=== PATIENT | female | born 1985 | race Caucasian/White ===

== ENCOUNTER 2019-12-18 23:24 | Inpatient (IN) | payer SELFPAY ==
[2019-12-18] MEDS ORDERED: FAMOTIDINE 20 MG/2 ML INJ IV ONE (23:33)
[2019-12-18] MEDS ORDERED: METOCLOPRAMIDE 10 MG/2 ML INJ IV ONE (23:33)
[2019-12-18] MEDS ORDERED: BICITRA ORAL LIQD 30ML PO ONE (23:33)
[2019-12-18] MEDS ORDERED: OXYTOCIN 20 UNIT/1000ML DRIP 20 UNITS/1,000 ML BAG IV SCH (23:45)
[2019-12-18 23:54] LABS: Hematocrit 39.2 % (30.3-42.9); Hemoglobin 13.3 gm/dl (10.1-14.3); Mean Corpuscular HGB Conc 34 % (30-34); Mean Corpuscular Volume 78 fl (79-97); Platelet Count 180 K/mm3 (140-440)
[2019-12-19] MEDS: LACTATED RINGERS 1,000 ML IV SCH ×2 (00:05→12:37)
[2019-12-19 00:15] LABS: Red Cell Distribution Width 22.9 % (13.2-15.2)
--- NOTE | 2019-12-19 00:27 | History and Physical Report ---
History of Present Illness Date of examination: 12/19/19 History of present illness: PT is a Angella Ross at 36.6 weeks. Spoke with pt via drug safety physician. PT is s/p SROM clear at home around 3-4 hrs ago. Clear fluid. H/O LTCS and pt is for RLTCS. Uncomplicated . Past History Past Medical History: no pertinent history Past Surgical History: section Social history: no significant social history - Obstetrical History Expected Date of Delivery: 01/10/20 Actual Gestation: 36 Week(s) 6 Day(s) Para: 2 Hx # Term Pregnancies: 1 Number of Pregnancies: 1 Number of Living Children: 1 Medications and Allergies Allergies Allergy/AdvReac Type Severity Reaction Status Date / Time No Known Allergies Allergy Verified 12/18/19 23:42 Active Meds: Active Medications Oxytocin/Sodium Chloride (Pitocin/Ns 20 Unit/1000ml Drip) 20 units in 1,000 mls @ 0 mls/hr IV TITR BRETT Lactated Ringer's (Lactated Ringers) 1,000 mls @ 2,250 mls/hr IV PREOP BRETT Stop: 12/20/19 00:12 Review of Systems All systems: negative (except for HPI) - Vital Signs Vital signs: Vital Signs Pulse BP 82 146/72 12/18/19 23:52 12/18/19 23:52 Temp Pulse Resp BP Pulse Ox 82 146/72 12/18/19 23:52 12/18/19 23:52 - Physical Exam Abdomen: Positive: normal appearance. Negative: tenderness - Obstetrical FHR: category 1 Uterine Contraction Duration: q2 Uterine Contraction Pattern: Regular Results Result Diagrams: 12/18/19 23:40 Abnormal lab results 12/18/19 Range/Units 23:40 MCV 78 L (79-97) fl MCH 27 L (28-32) pg RDW 22.9 H (13.2-15.2) % All other labs normal. Assessment and Plan - Patient Problems (1) premature rupture of membranes (PPROM) with unknown onset of labor Current Visit: Yes Status: Acute Plan to address problem: PPROM with h/o prior . PT fully consented for Repeat LTCS via tr anslator. All questions answered and pt agrees to proceed with surgery.
[2019-12-19] MEDS ORDERED: ceFAZolin/Water 2 GM/20 ML 2 GM/20 ML SYRINGE IV ONE (00:30)
[2019-12-19] MEDS ORDERED: BUPIVACAINE /DEX-WATER 0.75% (2 ML) AMPULE INFILTRATI ONE (00:38)
[2019-12-19] MEDS ORDERED: DEXMEDETOMIDINE 200 MCG/2 ML VIAL IV ONE (00:38)
[2019-12-19] MEDS ORDERED: ceFAZolin/STERILE WATER 2 GM/20 ML SYRINGE IV ONE (00:50)
[2019-12-19] MEDS ORDERED: WATER FOR IRRIG STERILE 1,500 ML BOTTLE IR ONE (01:08)
[2019-12-19] MEDS ORDERED: SODIUM CHLORIDE 0.9% IRR 1,500 ML BOTTLE IR ONE (01:08)
[2019-12-19] MEDS ORDERED: dexAMETHasone 20 MG/5 ML VIAL ONE (01:22)
[2019-12-19] MEDS ORDERED: OXYTOCIN 10 UNIT/1 ML INJ ONE (01:22)
[2019-12-19] MEDS ORDERED: PHENYLEPHRINE/NS 1,000 MCG/10 ML SYRINGE (OR USE) IV ONE (01:22)
[2019-12-19] MEDS ORDERED: diphenhydrAMINE 50 MG/ML VIAL ONE (01:22)
[2019-12-19] MEDS ORDERED: KETOROLAC 30 MG/1 ML INJ ONE (01:22)
--- NOTE | 2019-12-19 02:04 | Procedure Note ---
OB Delivery Note - Delivery Date of Delivery: 12/19/19 Surgeon: GERARDO GARRETT Estimated blood loss: other (800cc) - Section Preop diagnosis: repeat , other (PPROM) Postop diagnosis: same section procedure: section, repeat low transverse Disposition: PACU Complications: none Narrative: Indication: 34-year-old G2, P1 at 36 weeks and 6 days with a history of a prior is here status post premature rupture of membranes. As result patient is for repeat low-transverse . Findings: Normal uterus, tubes and ovaries. Clear fluid. No nuchal cord. No significant intra-abdominal scarring. Procedure: Patient taken to the operating room and prepped and draped in the usual fashion. Pfannenstiel skin incision was made and carried down to the underlying fascia. Fascia was incised and the incision was extended bilaterally. Rectus fascia dissected off the rectus muscle both superiorly and inferiorly. Peritoneum identified tented up and entered. Peritoneal incision extended superiorly and inferiorly with good visualization of the bladder. Bladder blade was placed. Uterine incision was made and the incision was extended bilaterally. The baby was delivered from in the typical vertex fashion. Baby bulb suctioned at the incision site and again after delivery. Cord was delayed clamped and cut and handed off to waiting team. The placenta was delivered spontaneously. The uterus was exteriorized and cleared of all clots and debris. Uterine incision closed with 0 Vicryl in a running locked fashion followed by a second imbricating layer of 0 Vicryl. Good hemostasis was noted after couple additional [id number] stitches were required. Her urine was clear. Uterus tubes and ovaries return to the abdominal cavity. Gutters were cleared of all clots and debris and the pelvis was well irrigated. Good hemostasis noted. Interceed placed over the uterine incision and over the lower uterine segment in the midline. Attention was turned to the rectus fascia which was reapproximated with 0 Vicryl in a running fashion. Subcutaneous tissues was irrigated and reapproximated with 2-0 Vicryl in a running fashion. Skin was closed with 4-0 Vicryl in a subcuticular fashion followed by Dermabond. The procedure was concluded at this point and the patient tolerated the procedure well. All instrument and lap counts were correct. - Infant A at 1 minute: 8 at 5 minutes: 9 Gender: Female
[2019-12-19] MEDS ORDERED: WITCH HAZEL/ GLYCERIN PAD TP PRN (02:05)
[2019-12-19] MEDS ORDERED: NALOXONE 0.4 MG/1 ML INJ IV PRN (02:05)
[2019-12-19] MEDS ORDERED: LANOLIN/ZINC/DIMETHICONE (LANSINOH) 7 GM TP PRN (02:05)
[2019-12-19] MEDS ORDERED: MAGNESIUM HYDROXIDE (MOM) ORAL LIQD UDC PO PRN (02:06)
[2019-12-19] MEDS ORDERED: ONDANSETRON 4 MG/2 ML INJ IV PRN (02:06)
[2019-12-19] MEDS ORDERED: SIMETHICONE 80 MG CHEW TAB PO PRN (02:06)
[2019-12-19] MEDS ORDERED: SENNOSIDES 8.6 MG TAB PO PRN (02:06)
--- NOTE | 2019-12-19 02:19 | Anesthesia Consultation ---
Anesthesia Consult and Med Hx Date of service: 12/19/19 - Airway Anesthetic Teeth Evaluation: Good ROM Head & Neck: Adequate Mental/Hyoid Distance: Adequate Mallampati Class: Class II Intubation Access Assessment: Good - Pulmonary Exam CTA: Yes - Cardiac Exam Cardiac Exam: RRR - Pre-Operative Health Status ASA Pre-Surgery Classification: ASA2, Emergency Proposed Anesthetic Plan: Spinal - Pulmonary Hx Asthma: No COPD: No Hx Pneumonia: No - Cardiovascular System Hx Hypertension: No - Central Nervous System Hx Seizures: No Hx Psychiatric Problems: No - Endocrine Hx Renal Disease: No Hx End Stage Renal Disease: No Hx Hypothyroidism: No Hx Hyperthyroidism: No - Hematic Hx Anemia: No Hx Sickle Cell Disease: No - Other Systems Hx Alcohol Use: No
--- NOTE | 2019-12-19 02:19 | Anesthesia Day of Surgery ---
Anesthesia Day of Surgery - Day of Surgery Patient Examined: Yes Patient H&P Reviewed: Yes Patient is NPO: Yes
[2019-12-19] MEDS ORDERED: PROMETHAZINE 25 MG RECT SUPP PR PRN (02:21)
[2019-12-19] MEDS ORDERED: HYDROmorphone 1 MG/1 ML INJ IV PRN (02:21)
[2019-12-19] MEDS ORDERED: PROMETHAZINE 25 MG TAB PO PRN (02:21)
--- NOTE | 2019-12-19 02:21 | Progress Note ---
Spinal Anesthesia Block - Spinal Anesthesia Block Start Time: 00:46 Stop Time: 00:48 Performed by:: CARLOS RIOS Procedure: Spinal anesthesia block is being performed for repeat for spontaneous rupture of membrane. H&P, labs have been reviewed. Patient's questions and concerns have been answered. Informed consent has been performed. Timeout has was performed. Patient in sitting position on side of bed. Sterile prep and drape was performed. 3 mL 1% lidocaine skin wheal at L 3-L 4. Needle introducer advanced. 25-gauge spinal needle advanced, clear CSF negative blood. Spinal dose was given. All needles removed. Patient tolerated procedure well.
--- NOTE | 2019-12-19 02:21 | Post Anesthesia Evaluation ---
- Post Anesthesia Evaluation Patient Participated: Yes Airway Patent: Yes Stable Respiratory Function: Yes Nausea/Vomiting: No Temp > 96.8F: Yes Pain Manageable: Yes Adequeate Hydration: Yes Anesthesia Complications: No Block Receding Appropriately: Yes Patient on Ventilator: No
[2019-12-19] MEDS ORDERED: OXYTOCIN 20 UNIT/1000ML DRIP 20 UNITS/1,000 ML BAG IV SCH (03:00)
[2019-12-19 03:25] LABS: Basophils % (Manual) 0 % (0.0-1.8); Ovalocytes Few; Schistocytes Rare; Total Cells Counted 100
[2019-12-19 03:26] LABS: Platelet Estimate Consistent w Auto
[2019-12-19] MEDS: KETOROLAC 30 MG/1 ML INJ IV PRN ×3 (04:36→22:54)
[2019-12-19] MEDS: oxyCODONE /ACETAMINOPHEN 5-325MG TAB PO PRN (18:09)
[2019-12-20 05:59] LABS: Hematocrit 31.4 % (30.3-42.9); Hemoglobin 10.5 gm/dl (10.1-14.3)
[2019-12-20] MEDS: oxyCODONE /ACETAMINOPHEN 5-325MG TAB PO PRN ×2 (08:09→17:25)
[2019-12-20] MEDS: FERROUS SULFATE 325 MG TAB PO SCH ×2 (09:29→21:59)
--- NOTE | 2019-12-20 11:45 | Progress Note ---
Assessment and Plan - Patient Problems (1) S/P repeat low transverse Current Visit: Yes Status: Acute Plan to address problem: POD 1 - stable Continue routine postop orders Ambulation, abdominal binder encouraged as tolerated Anticipate discharge in 24 to 48 hours (2) Single live Current Visit: Yes Status: Acute Subjective - Subjective Date of service: 12/20/19 Principal diagnosis: POD #1; s/p Repeat LTCS Interval history: see [employer] - H&P and OB Delivery Procedure Note Patient reports: appetite normal, voiding normally, pain well controlled, flatus, ambulating normally, no dizzy ambulation, no bowel movement [place]: doing well, nursing well Objective - Vital Signs Latest vital signs: Vital Signs Temp Pulse Resp BP Pulse Ox 12/20/19 08:50 98.3 F 116 H 18 108/73 96 12/19/19 19:54 98.5 F 108 H 18 121/78 96 12/19/19 17:01 98.0 F 100 H 18 114/70 97 12/19/19 12:53 97.6 F 94 H 18 110/66 99 Intake and Output 12/19/19 12/20/19 12/20/19 23:59 07:59 15:59 Intake Total 360 120 120 Output Total 1100 600 Balance -740 -480 120 Intake: Oral 360 120 120 Output: Urine 1100 600 Void 1100 600 Other: Total, Intake Amount 240 120 120 Total, Output Amount 800 600 - Exam Abdomen: Present: normal appearance, soft Vulva: both: normal Uterus: Present: normal, firm, fundal height at umbilicus Extremities: Present: normal Incision: Present: normal, dry, intact, other (surgical glue in place) Comments: small lochia
[2019-12-20] MEDS: IBUPROFEN 800 MG TAB PO PRN ×2 (12:44→22:02)
[2019-12-21] MEDS: oxyCODONE /ACETAMINOPHEN 5-325MG TAB PO PRN ×2 (09:25→16:03)
[2019-12-21] MEDS: FERROUS SULFATE 325 MG TAB PO SCH ×2 (09:26→23:47)
--- NOTE | 2019-12-21 12:31 | Progress Note ---
Assessment and Plan - Patient Problems (1) S/P repeat low transverse Current Visit: Yes Status: Acute Plan to address problem: Continue routine PP orders Keep incision site clean and dry Anticipate d/c home tomorrow F/U at office in 2 week for incision check (2) Anemia Current Visit: Yes Status: Acute Qualifiers: Anemia type: other cause Other causes of anemia: acute posthemorrhagic Qualified Code(s): D62 - Acute posthemorrhagic anemia Plan to address problem: Asymptomatic Continue daily oral iron supplementation as directed Increase iron rich foods into diet Subjective - Subjective Date of service: 12/21/19 Principal diagnosis: POD #2; s/p Repeat LTCS Interval history: See admission H & P; OB operative note; and PP progress notes Patient reports: appetite normal, voiding normally, pain well controlled (with mediations), flatus, ambulating normally, no bowel movement [place]: doing well, bottle feeding (and ) Objective - Vital Signs Latest vital signs: Vital Signs Temp Pulse Resp BP Pulse Ox 12/21/19 08:25 97.8 F 85 18 106/69 96 12/21/19 01:42 97.8 F 95 H 16 114/63 98 12/20/19 16:12 98.2 F 91 H 18 118/77 96 Intake and Output 12/20/19 12/21/19 12/21/19 23:59 07:59 15:59 Intake Total 240 720 Balance 240 720 Intake: Oral 240 Intake, Free Water 720 Other: Total, Intake Amount 240 # Voids Void 2 - Exam Breasts: Present: normal Cardiovascular: Present: Regular rate Abdomen: Present: normal appearance Uterus: Present: firm, fundal height at umbilicus Extremities: Present: normal Deep Tendon Reflex Grade: Normal +2 Incision: Present: dry, intact (no drainage or bleeding noted)
--- NOTE | 2019-12-21 12:37 | Discharge Summary ---
Providers - Providers Date of Admission: 12/19/19 01:43 Date of discharge: 12/22/19 (0900) Attending physician: GERARDO GARRETT Primary care physician: GERARDO GARRETT Hospitalization Reason for admission: section, IUP at term Delivery: Procedure: repeat low transverse Episiotomy: none Laceration: none Incision: dry, intact Other procedures: none complications: none Discharge diagnosis: IUP at term delivered, other (anemia) [place] baby: female Hospital course: See admission H & P; OB operative note; and PP progress notes Condition at discharge: Stable Disposition: DC-[id number] TO HOME OR SELFCARE - Discharge Diagnoses (1) S/P repeat low transverse Status: Acute (2) Anemia Status: Acute Qualifiers: Anemia type: other cause Other causes of anemia: acute posthemorrhagic Qualified Code(s): D62 - Acute posthemorrhagic anemia Plan - Discharge Medications Prescriptions: Ferrous Sulfate [Feosol 325 MG tab] 325 mg PO QDAY 30 Days #30 tablet Ibuprofen [Motrin 800 MG tab] 800 mg PO Q6H PRN #30 tablet PRN Reason: Pain, Mild (1-3) oxyCODONE /ACETAMINOPHEN [Percocet 5/325 mg] 1 tab PO Q4H PRN #30 tablet PRN Reason: Pain, Moderate (4-6) - Provider Discharge Summary Activity: routine, no sex for 6 weeks, no heavy lifting 4 weeks, no strenuous exercise Diet: other (Iron rich diet) Instructions: routine Additional instructions: [] Smoking cessation referral if applicable(refer to patient education folder for contact #) [] Refer to [facility] Booklet Call your doctor immediately for: * Fever > 100.5 * Heavy vaginal bleeding ( >1 pad per hour) * Severe persistent headache * Shortness of breath * Reddened, hot, painful area to leg or breast * Drainage or odor from incision. * Keep incision clean and dry at all times and follow doctor's instructions regarding bathing/showering - Follow up plan Follow up: GERARDO GARRETT MD [Primary Care Provider] - 14 Days
[2019-12-21] MEDS: IBUPROFEN 800 MG TAB PO PRN (23:47)
[2019-12-22] MEDS: oxyCODONE /ACETAMINOPHEN 5-325MG TAB PO PRN (03:47)
[2019-12-22] MEDS: FERROUS SULFATE 325 MG TAB PO SCH (09:41)
[2019-12-22] MEDS: IBUPROFEN 800 MG TAB PO PRN (09:41)
[2019-12-22 18:33] VITALS: BP 117/77
== END 2019-12-22 17:20 | disposition home or self-care (01) | DRG 787 ==
LOC: TRG 23:24 → APU 23:26 → TRG 12-19 → APU 12-19 01:43 → LD 12-19 04:18 → OB 12-19 10:07
PROVIDERS: ADMIT Obstetrics & Gynecology; ATTEND Obstetrics & Gynecology
PROC: 10D00Z1 Extraction of Products of Conception, Low, Open Approach (ICD-10-PCS; principal; 2019-12-19)
DX: O42.013 Preterm premature rupture of membranes, onset of labor within 24 hours of rupture, third trimester (principal); D62 Acute posthemorrhagic anemia; O34.219 Maternal care for unspecified type scar from previous cesarean delivery; Z37.0 Single live birth; Z3A.36 36 weeks gestation of pregnancy; O90.81 Anemia of the puerperium
CPT/HCPCS: 36415; 59025; 85007; 85014; 85018; 85025; 86592; 86850; 86900; 86901; 96360; G0378; A6250; C1765; J0690; J1100; J1200; J1885; J2370; J2590; J2765; J3490; J7120

== ENCOUNTER 2021-06-23 09:45 | Inpatient (IN) | payer SELFPAY ==
[2021-06-23 11:25] LABS: Basophils # (Auto) 0.1 K/mm3 (0.0-0.1); Basophils % (Auto) 0.8 % (0.0-1.8); Eosinophils # (Auto) 0.1 K/mm3 (0.0-0.4); Eosinophils % (Auto) 0.7 % (0.0-4.3); Hematocrit 35.4 % (30.3-42.9); Hemoglobin 11.4 gm/dl (10.1-14.3); Lymphocytes # (Auto) 1.2 K/mm3 (1.2-5.4); Lymphocytes % (Auto) 15.7 % (13.4-35.0); Mean Corpuscular HGB Conc 32 % (30-34); Mean Corpuscular Volume 78 fl (79-97); Monocytes # (Auto) 0.5 K/mm3 (0.0-0.8); Monocytes % (Auto) 6.3 % (0.0-7.3); Platelet Count 171 K/mm3 (140-440); Red Blood Count 4.54 M/mm3 (3.65-5.03); Red Cell Distribution Width 22.9 % (13.2-15.2)
[2021-06-23 11:46] LABS: Alanine Aminotransferase 12 units/L (7-56); Albumin 3.3 g/dL (3.9-5); Blood Urea Nitrogen 7 mg/dL (7-17); Calcium 8.6 mg/dL (8.4-10.2); Hemolysis Index 18
[2021-06-23 11:47] LABS: BUN/Creatinine Ratio 23
[2021-06-23] MEDS ORDERED: LACTATED RINGERS 500 ML IV ONE (12:00)
[2021-06-23 12:07] LABS: Bacteria,Urine 1+ /HPF (Negative); Bilirubin,Urine NEG (Negative); Blood,Urine NEG (Negative); Color,Urine Straw (Yellow); Protein,Urine <15 mg/dL mg/dL (Negative); Urobilinogen,Urine < 2.0 mg/dL (<2.0); WBC,Urine < 1.0 /HPF (0.0-6.0)
--- NOTE | 2021-06-23 12:50 | Ultrasound Report ---
ULTRASOUND OBSTETRIC LIMITED ULTRASOUND BIOPHYSICAL PROFILE INDICATION / CLINICAL INFORMATION: labor. Clinical Gestational Age (GA): 32.1 weeks.days COMPARISON: None available. FINDINGS: BREATHING MOVEMENT = 2 GROSS BODY MOVEMENT = 2 TONE = 2 QUALITATIVE AMNIOTIC FLUID VOLUME = 2 TOTAL BIOPHYSICAL SCORE = 8/8 HEART RATE (beats per minute): 153 AMNIOTIC FLUID INDEX (cm) = 8.5 (normal = 7-24 cm) PRESENTATION: Cephalic. ADDITIONAL FINDINGS: The placenta is located anteriorly, is grade 1 and is free of the os. Uterine co ntractions were noted. The estimated sonographic gestational age is 31 weeks 1 day with an LA of . The estimated weight is 1850 +/- 274 g. The cephalic index is 72.1 which is slightly bel ow the normal range of 74 through 83. IMPRESSION: 1. Biophysical Score = 8/8 2. Slightly decreased cephalic index. Signer Name: Dev Boston MD Signed: 06/23/2021 12:46 PM Workstation Name: [id number]
[2021-06-23] MEDS: BETAMET ACET/BETAMET NA PH 6 MG/ML INJ 5 ML MDV IM SCH (13:06)
[2021-06-23] MEDS ORDERED: ONDANSETRON 4 MG/2 ML INJ IV PRN (14:24)
[2021-06-23] MEDS ORDERED: fentaNYL 100 MCG/2 ML INJ IV PRN (14:24)
[2021-06-23] MEDS ORDERED: OXYTOCIN 10 UNIT/1 ML INJ IM PRN (14:24)
[2021-06-23] MEDS ORDERED: LOPERAMIDE 2 MG CAP PO PRN (14:24)
[2021-06-23] MEDS ORDERED: PROMETHAZINE 25 MG TAB PO PRN (14:24)
[2021-06-23] MEDS ORDERED: miSOPROStol 200 MCG TAB PR PRN (14:24)
[2021-06-23] MEDS ORDERED: TERBUTALINE 1 MG/1 ML INJ SUB-Q PRN (14:24)
[2021-06-23] MEDS ORDERED: METHYLERGONOVINE MALEATE 0.2 MG/ML VIAL IM PRN (14:24)
[2021-06-23] MEDS ORDERED: NalbUPHINE 10 MG/1 ML INJ IV PRN (14:24)
[2021-06-23] MEDS ORDERED: ePHEDrine SULFATE 50 MG/1 ML INJ IV PRN (14:24)
[2021-06-23] MEDS ORDERED: CARBOPROST TROMETHAMINE 250 MCG/1 ML INJ IM PRN (14:24)
[2021-06-23] MEDS ORDERED: LIDOCAINE (2%) 20 MG/1 ML VIAL 20 ML MDV INFILTRATI ONE (14:24)
[2021-06-23] MEDS ORDERED: OXYTOCIN DRIP 30 UNITS/500 ML BAG IV SCH ×2 (15:00)
[2021-06-23] MEDS: LACTATED RINGERS 1,000 ML IV SCH (15:58)
[2021-06-23] MEDS: AMPICILLIN/NS 2 GM/100 ML 2 GM/100 ML BAG IV SCH ×2 (15:58→22:55)
--- NOTE | 2021-06-23 19:04 | History and Physical Report ---
History of Present Illness Date of examination: 06/23/21 Date of admission: 06/23/21 14:38 Chief complaint: vag bleeding History of present illness: at 32.1wks by EDC 08/17/21; pt came to triage with c/o vag bleeding. pt also uncertain of any gush of fluid. Pt admits to movement and ocassional contractions. Past History Past Medical History: no pertinent history Past Surgical History: section (x2) Family/Genetic History: none Social history: no significant social history - Obstetrical History Expected Date of Delivery: 08/17/21 Actual Gestation: 32 Week(s) 1 Day(s) : 3 Para: 2 Number of Living Children: 2 Medications and Allergies Allergies Allergy/AdvReac Type Severity Reaction Status Date / Time No Known Allergies Allergy Verified 12/18/19 23:42 Home Medications Medication Instructions Recorded Confirmed Last Taken Type Ibuprofen [Motrin 800 MG tab] 800 mg PO Q6H PRN #30 tablet 12/19/19 Unknown Rx oxyCODONE /ACETAMINOPHEN [Percocet 1 tab PO Q4H PRN #30 tablet 12/19/19 Unknown Rx 5/325 mg] Ferrous Sulfate [Feosol 325 MG tab] 325 mg PO QDAY 30 Days #30 tablet 12/21/19 Unknown Rx Active Meds: Active Medications Acetaminophen (Acetaminophen 325 Mg Tab) 650 mg PO Q4H PRN PRN Reason: Pain, Mild (1-3) Ampicillin (Ampicillin 500 Mg Cap) 500 mg PO Q6HR BRETT; Protocol Stop: 06/30/21 17:59 Azithromycin (Azithromycin 250 Mg Tab) 500 mg PO QDAY BRETT; Protocol Stop: 06/30/21 17:59 Betamethasone Acet/Betameth SodPhos (Betamet Acet/Betamet Na Ph 6 Mg/Ml Inj 5 Ml Mdv) 12 mg IM Q24H BRETT Stop: 06/24/21 13:31 Last Admin: 06/23/21 13:06 Dose: 12 mg Documented by: Carboprost Tromethamine (Carboprost Tromethamine 250 Mcg/1 Ml Inj) 250 mcg IM ONCE PRN PRN Reason: Uterine Bleeding Ephedrine Sulfate (Ephedrine Sulfate 50 Mg/1 Ml Inj) 10 mg IV Q2M PRN PRN Reason: Hypotension Fentanyl (Fentanyl 100 Mcg/2 Ml Inj) 100 mcg IV Q2H PRN PRN Reason: Pain,Severe (7-10) LABOR PAIN Oxytocin/Sodium Chloride (Pitocin/Ns 30 Unit/500ml) 30 units in 500 mls @ 2 mls/hr IV TITR BRETT; Protocol Lactated Ringer's (Lactated Ringers) 1,000 mls @ 125 mls/hr IV DIRECT BRETT Last Admin: 06/23/21 15:58 Dose: 125 mls/hr Documented by: Oxytocin/Sodium Chloride (Pitocin/Ns 30 Unit/500ml) 30 units in 500 mls @ 40 mls/hr IV TITR BRETT; Protocol Ampicillin Sodium (Ampicillin/Ns 2 Gm/100 Ml) 2 gm in 100 mls @ 100 mls/hr IV Q6H BRETT; Protocol Stop: 06/25/21 14:59 Last Admin: 06/23/21 15:58 Dose: 100 mls/hr Documented by: Azithromycin (Zithromax/Ns) 500 mg in 250 mls @ 250 mls/hr IV Q24H BRETT Stop: 06/25/21 14:59 Loperamide HCl (Loperamide 2 Mg Cap) 2 mg PO ONCE PRN PRN Reason: give with Hemabate Methylergonovine Maleate (Methylergonovine Maleate 0.2 Mg/Ml Vial) 0.2 mg IM ONCE PRN PRN Reason: Uterine Bleeding Mineral Oil (Mineral Oil 30 Ml Oral Liqd) 30 ml PO QHS PRN PRN Reason: Constipation Misoprostol (Misoprostol 200 Mcg Tab) 800 mcg [place] ONCE PRN PRN Reason: Uterine Bleeding Nalbuphine HCl (Nalbuphine 10 Mg/1 Ml Inj) 10 mg IV Q2H PRN PRN Reason: Pain, Moderate (4-6) Nitrofurantoin Macrocrystals (Nitrofurantoin Monohyd/M-Cryst 100 Mg Cap) 100 mg PO Q12HR [facility] Stop: 06/30/21 14:32 Ondansetron HCl (Ondansetron 4 Mg/2 Ml Inj) 4 mg IV Q8H PRN PRN Reason: Nausea And Vomiting Oxytocin (Oxytocin 10 Unit/1 Ml Inj) 10 unit IM ONCE PRN PRN Reason: Uterine Bleeding Promethazine HCl (Promethazine 25 Mg Tab) 25 mg PO Q6H PRN PRN Reason: Nausea And Vomiting Terbutaline Sulfate (Terbutaline 1 Mg/1 Ml Inj) 0.25 mg SUB-Q ONCE PRN PRN Reason: Hyperstimulation/Hypertonicity Review of Systems All systems: negative (vag bleed and ocassional ctx) - Vital Signs Vital signs: Vital Signs Pulse Pulse Ox 84 98 06/23/21 10:08 06/23/21 10:08 Temp Pulse Resp BP Pulse Ox 97.8 F 77 16 103/72 98 06/23/21 15:29 06/23/21 17:47 06/23/21 15:29 06/23/21 15:29 06/23/21 17:47 - Physical Exam Breasts: Positive: deferred Cardiovascular: Regular rate Abdomen: Positive: normal appearance, soft Extremities: Positive: normal - Obstetrical FHR: category 1 Uterine Contraction Monitor Mode: External Results Result Diagrams: 06/23/21 11:05 06/23/21 11:05 Abnormal lab results 06/23/21 06/23/21 06/23/21 Range/Units 11:05 11:05 12:40 MCV 78 L (79-97) fl MCH 25 L (28-32) pg RDW 22.9 H (13.2-15.2) % Seg Neutrophils % 76.5 H (40.0-70.0) % Sodium 136 L (137-145) mmol/L Carbon Dioxide 18 L (22-30) mmol/L Creatinine 0.3 L (0.6-1.2) mg/dL Albumin 3.3 L (3.9-5) g/dL Membranes Rupture Positive A (Negative) All other labs normal. Assessment and Plan IUP at 32.1wks with PPROM, H/O C/Section x2 relatively stable; Gest DM, diet controlled 1. Admit to labor and delivery, steroids, no tocolysis pt with ocassional ctx and presentation with vag bleed and no neuroprotection needed. 2. Consult [facility] 3. Amp/zithro x2 days IV and then oral for 5days 4. U/S with fetus 1850g, vertex, BPP 8/8/ with BRIAN 8 5. Expectant mgt with delivery at 34.0wks, repeat c/section and delivery for NRFHR or maternal indications
[2021-06-23] MEDS: NITROFURANTOIN MONOHYD/M-CRYST 100 MG CAP PO SCH (21:06)
[2021-06-23] MEDS: AZITHROMYCIN/NS 500 MG/250 ML 500 MG/250 ML BAG IV SCH (21:06)
[2021-06-23] MEDS: ACETAMINOPHEN 325 MG TAB PO PRN (21:06)
[2021-06-23] MEDS ORDERED: MINERAL OIL 30 ML ORAL LIQD PO PRN (22:00)
--- NOTE | 2021-06-24 05:02 | Progress Note ---
Assessment and Plan IUP at 32.2wks with PPROM, UTI on IV antibiotics, urine culture result pending; H/O C/Section x2 1. Await [facility] consult later today 2. Continue Days #2/2 IV amp/zithro and start oral meds on 06/25/21 3. Monitor BPP and BRIAN at regular intervals 4. Routine care and stool softeners added to vitamins 5. Deliver at 34.0wks via section or early if signs of chorio or distress 6. Continue macrobid for UTI and follow urine culture All questions encouraged and answered Subjective Date of service: 06/24/21 Principal diagnosis: HD#2, IUP at 32.3wks, PPROM; Interval history: pt has no complaints. Admits to movement. denies contractions. Scant leakage of fluid. no vag bleed at this time. Objective - Constitutional Vitals: Vital Signs - 12hr 06/23/21 06/23/21 06/23/21 16:57 17:02 17:07 Temperature Pulse Rate 75 81 82 Blood Pressure O2 Sat by Pulse 97 99 98 Oximetry O2 Sat by Pulse Oximetry [ Bilateral] 06/23/21 06/23/21 06/23/21 17:12 17:17 17:22 Temperature Pulse Rate 88 82 93 H Blood Pressure O2 Sat by Pulse 100 99 99 Oximetry O2 Sat by Pulse Oximetry [ Bilateral] 06/23/21 06/23/21 06/23/21 17:27 17:32 17:37 Temperature Pulse Rate 80 93 H 82 Blood Pressure O2 Sat by Pulse 97 98 99 Oximetry O2 Sat by Pulse Oximetry [ Bilateral] 06/23/21 06/23/21 06/23/21 17:42 17:47 20:24 Temperature Pulse Rate 87 77 94 H Blood Pressure 113/70 O2 Sat by Pulse 97 98 Oximetry O2 Sat by Pulse Oximetry [ Bilateral] 06/23/21 06/23/21 06/23/21 20:26 20:30 20:31 Temperature 98.2 F Pulse Rate 94 H 103 H Blood Pressure O2 Sat by Pulse 98 98 Oximetry O2 Sat by Pulse 98 Oximetry [ Bilateral] 06/23/21 06/23/21 06/23/21 20:36 20:41 20:46 Temperature Pulse Rate 91 H 93 H 110 H Blood Pressure O2 Sat by Pulse 98 98 99 Oximetry O2 Sat by Pulse Oximetry [ Bilateral] 06/23/21 06/23/21 06/23/21 20:51 20:56 21:01 Temperature Pulse Rate 94 H 96 H 79 Blood Pressure O2 Sat by Pulse 98 99 99 Oximetry O2 Sat by Pulse Oximetry [ Bilateral] 06/23/21 06/23/21 06/23/21 21:05 21:10 21:16 Temperature Pulse Rate 99 H 91 H 110 H Blood Pressure O2 Sat by Pulse 100 100 100 Oximetry O2 Sat by Pulse Oximetry [ Bilateral] 06/23/21 06/23/21 06/23/21 21:21 21:26 21:31 Temperature Pulse Rate 99 H 101 H 106 H Blood Pressure O2 Sat by Pulse 100 98 98 Oximetry O2 Sat by Pulse Oximetry [ Bilateral] 06/23/21 06/23/21 06/23/21 21:36 21:41 21:46 Temperature Pulse Rate 109 H 108 H 107 H Blood Pressure O2 Sat by Pulse 99 99 98 Oximetry O2 Sat by Pulse Oximetry [ Bilateral] 06/23/21 06/23/21 06/23/21 21:51 21:56 22:01 Temperature Pulse Rate 105 H 104 H 102 H Blood Pressure O2 Sat by Pulse 99 98 99 Oximetry O2 Sat by Pulse Oximetry [ Bilateral] 06/23/21 06/23/21 06/23/21 22:06 22:11 22:16 Temperature Pulse Rate 116 H 109 H 108 H Blood Pressure O2 Sat by Pulse 99 98 98 Oximetry O2 Sat by Pulse Oximetry [ Bilateral] 06/23/21 06/23/21 06/23/21 22:21 22:26 22:31 Temperature Pulse Rate 104 H 114 H 103 H Blood Pressure O2 Sat by Pulse 98 98 98 Oximetry O2 Sat by Pulse Oximetry [ Bilateral] 06/23/21 06/23/21 06/23/21 22:36 22:41 22:45 Temperature Pulse Rate 105 H 104 H 99 H Blood Pressure O2 Sat by Pulse 98 99 98 Oximetry O2 Sat by Pulse Oximetry [ Bilateral] 06/23/21 06/23/21 06/23/21 22:51 22:56 23:01 Temperature Pulse Rate 100 H 104 H 98 H Blood Pressure O2 Sat by Pulse 98 98 97 Oximetry O2 Sat by Pulse Oximetry [ Bilateral] 06/23/21 06/23/21 06/23/21 23:06 23:10 23:15 Temperature Pulse Rate 95 H 96 H 100 H Blood Pressure O2 Sat by Pulse 97 98 98 Oximetry O2 Sat by Pulse Oximetry [ Bilateral] 06/23/21 06/23/21 06/23/21 23:21 23:26 23:31 Temperature Pulse Rate 98 H 94 H 96 H Blood Pressure O2 Sat by Pulse 98 98 98 Oximetry O2 Sat by Pulse Oximetry [ Bilateral] 06/23/21 06/23/21 06/23/21 23:36 23:41 23:46 Temperature Pulse Rate 101 H 99 H 103 H Blood Pressure O2 Sat by Pulse 98 98 98 Oximetry O2 Sat by Pulse Oximetry [ Bilateral] 06/23/21 06/23/21 06/24/21 23:51 23:56 00:01 Temperature Pulse Rate 121 H 115 H 99 H Blood Pressure O2 Sat by Pulse 98 98 98 Oximetry O2 Sat by Pulse Oximetry [ Bilateral] 06/24/21 06/24/21 06/24/21 00:06 00:11 00:16 Temperature Pulse Rate 109 H 101 H 100 H Blood Pressure O2 Sat by Pulse 99 99 98 Oximetry O2 Sat by Pulse Oximetry [ Bilateral] 06/24/21 06/24/21 06/24/21 00:21 00:26 00:31 Temperature Pulse Rate 98 H 105 H 111 H Blood Pressure O2 Sat by Pulse 99 99 98 Oximetry O2 Sat by Pulse Oximetry [ Bilateral] 06/24/21 06/24/21 06/24/21 00:36 00:41 00:46 Temperature Pulse Rate 99 H 102 H 100 H Blood Pressure O2 Sat by Pulse 98 98 98 Oximetry O2 Sat by Pulse Oximetry [ Bilateral] 06/24/21 06/24/21 06/24/21 00:51 00:56 01:01 Temperature Pulse Rate 93 H 95 H 102 H Blood Pressure O2 Sat by Pulse 98 98 99 Oximetry O2 Sat by Pulse Oximetry [ Bilateral] 06/24/21 06/24/21 06/24/21 01:06 01:11 01:16 Temperature Pulse Rate 94 H 83 90 Blood Pressure O2 Sat by Pulse 99 99 98 Oximetry O2 Sat by Pulse Oximetry [ Bilateral] 06/24/21 06/24/21 06/24/21 01:21 01:26 01:31 Temperature Pulse Rate 94 H 89 94 H Blood Pressure O2 Sat by Pulse 97 97 98 Oximetry O2 Sat by Pulse Oximetry [ Bilateral] 06/24/21 06/24/21 06/24/21 01:36 01:41 01:46 Temperature Pulse Rate 92 H 89 90 Blood Pressure O2 Sat by Pulse 98 96 96 Oximetry O2 Sat by Pulse Oximetry [ Bilateral] 06/24/21 06/24/21 06/24/21 01:51 01:56 02:01 Temperature Pulse Rate 88 92 H 87 Blood Pressure O2 Sat by Pulse 97 96 95 Oximetry O2 Sat by Pulse Oximetry [ Bilateral] 06/24/21 06/24/21 06/24/21 02:06 02:11 02:16 Temperature Pulse Rate 89 91 H 91 H Blood Pressure O2 Sat by Pulse 96 96 96 Oximetry O2 Sat by Pulse Oximetry [ Bilateral] 06/24/21 06/24/21 06/24/21 02:21 02:26 02:31 Temperature Pulse Rate 88 86 88 Blood Pressure O2 Sat by Pulse 96 96 96 Oximetry O2 Sat by Pulse Oximetry [ Bilateral] 06/24/21 06/24/21 06/24/21 02:36 02:41 02:46 Temperature Pulse Rate 88 88 88 Blood Pressure O2 Sat by Pulse 96 96 96 Oximetry O2 Sat by Pulse Oximetry [ Bilateral] 06/24/21 06/24/21 06/24/21 02:51 02:56 03:01 Temperature Pulse Rate 104 H 83 83 Blood Pressure O2 Sat by Pulse 97 97 97 Oximetry O2 Sat by Pulse Oximetry [ Bilateral] 06/24/21 06/24/21 06/24/21 03:05 03:11 03:16 Temperature Pulse Rate 86 90 82 Blood Pressure O2 Sat by Pulse 97 98 98 Oximetry O2 Sat by Pulse Oximetry [ Bilateral] 06/24/21 06/24/21 06/24/21 03:21 03:26 03:31 Temperature Pulse Rate 107 H 82 82 Blood Pressure O2 Sat by Pulse 98 98 98 Oximetry O2 Sat by Pulse Oximetry [ Bilateral] 06/24/21 06/24/21 06/24/21 03:36 03:41 03:46 Temperature Pulse Rate 84 82 80 Blood Pressure O2 Sat by Pulse 98 98 99 Oximetry O2 Sat by Pulse Oximetry [ Bilateral] 06/24/21 06/24/21 06/24/21 03:51 03:56 04:01 Temperature Pulse Rate 84 83 80 Blood Pressure O2 Sat by Pulse 98 99 98 Oximetry O2 Sat by Pulse Oximetry [ Bilateral] 06/24/21 06/24/21 06/24/21 04:06 04:11 04:16 Temperature Pulse Rate 81 77 79 Blood Pressure O2 Sat by Pulse 100 98 98 Oximetry O2 Sat by Pulse Oximetry [ Bilateral] 06/24/21 06/24/21 06/24/21 04:21 04:26 04:31 Temperature Pulse Rate 89 81 80 Blood Pressure O2 Sat by Pulse 98 98 99 Oximetry O2 Sat by Pulse Oximetry [ Bilateral] 06/24/21 06/24/21 06/24/21 04:36 04:41 04:46 Temperature Pulse Rate 80 86 80 Blood Pressure O2 Sat by Pulse 98 98 99 Oximetry O2 Sat by Pulse Oximetry [ Bilateral] 06/24/21 04:51 Temperature Pulse Rate 82 Blood Pressure O2 Sat by Pulse 99 Oximetry O2 Sat by Pulse Oximetry [ Bilateral] General appearance: Present: no acute distress - Respiratory Respiratory effort: normal - Cardiovascular Rhythm: regular Extremities: No edema - Gastrointestinal General gastrointestinal: Present: soft, non-tender - Genitourinary Female genitourinary: other (FHR category I and no ctx on monitor; non-tender gr avid) - Labs CBC & Chem 7: 06/23/21 11:05 06/23/21 11:05 Labs: Abnormal lab results 06/23/21 06/23/21 06/23/21 Range/Units 11:05 11:05 12:40 MCV 78 L (79-97) fl MCH 25 L (28-32) pg RDW 22.9 H (13.2-15.2) % Seg Neutrophils % 76.5 H (40.0-70.0) % Sodium 136 L (137-145) mmol/L Carbon Dioxide 18 L (22-30) mmol/L Creatinine 0.3 L (0.6-1.2) mg/dL Albumin 3.3 L (3.9-5) g/dL Membranes Rupture Positive A (Negative) Medications & Allergies - Medications Allergies/Adverse Reactions: Allergies No Known Allergies Allergy (Verified 12/18/19 23:42) Home Medications: Home Medications Medication Instructions Recorded Confirmed Last Taken Type Ibuprofen [Motrin 800 MG tab] 800 mg PO Q6H PRN #30 tablet 12/19/19 Unknown Rx oxyCODONE /ACETAMINOPHEN [Percocet 1 tab PO Q4H PRN #30 tablet 12/19/19 Unknown Rx 5/325 mg] Ferrous Sulfate [Feosol 325 MG tab] 325 mg PO QDAY 30 Days #30 tablet 12/21/19 Unknown Rx Active Medications: Generic Name Dose Route Start Last Admin Trade Name Freq PRN Reason Stop Dose Admin Acetaminophen 650 mg 06/23/21 14:24 06/23/21 21:06 Acetaminophen 325 Mg Tab PO 650 mg Q4H PRN Administration Pain, Mild (1-3) Ampicillin 500 mg 06/25/21 18:00 Ampicillin 500 Mg Cap PO 06/30/21 17:59 Q6HR [facility] Protocol Azithromycin 500 mg 06/25/21 18:00 Azithromycin 250 Mg Tab PO 06/30/21 17:59 QDAY [facility] Protocol Betamethasone Acet/Betameth SodPhos 12 mg 06/23/21 13:30 06/23/21 13:06 Betamet Acet/Betamet Na Ph 6 Mg/Ml Inj 5 Ml Mdv IM 06/24/21 13:31 12 mg Q24H [facility] Administration Carboprost Tromethamine 250 mcg 06/23/21 14:24 Carboprost Tromethamine 250 Mcg/1 Ml Inj IM ONCE PRN Uterine Bleeding Ephedrine Sulfate 10 mg 06/23/21 14:24 Ephedrine Sulfate 50 Mg/1 Ml Inj IV Q2M PRN Hypotension Fentanyl 100 mcg 06/23/21 14:24 Fentanyl 100 Mcg/2 Ml Inj IV Q2H PRN Pain,Severe (7-10) LABOR PAIN Oxytocin/Sodium Chloride 30 units in 500 mls @ 2 mls/hr 06/23/21 15:00 Pitocin/Ns 30 Unit/500ml IV TITR [facility] Protocol Lactated Ringer's 1,000 mls @ 125 mls/hr 06/23/21 14:30 06/23/21 15:58 Lactated Ringers IV 125 mls/hr DIRECT [facility] Administration Oxytocin/Sodium Chloride 30 units in 500 mls @ 40 mls/hr 06/23/21 15:00 Pitocin/Ns 30 Unit/500ml IV TITR [facility] Protocol Ampicillin Sodium 2 gm in 100 mls @ 100 mls/hr 06/23/21 15:00 06/23/21 22:55 Ampicillin/Ns 2 Gm/100 Ml IV 06/25/21 14:59 100 mls/hr Q6H [facility] Administration Protocol Azithromycin 500 mg in 250 mls @ 250 mls/hr 06/23/21 15:00 06/23/21 21:06 Zithromax/Ns IV 06/25/21 14:59 250 mls/hr Q24H [facility] Administration Loperamide HCl 2 mg 06/23/21 14:24 Loperamide 2 Mg Cap PO ONCE PRN give with Hemabate Methylergonovine Maleate 0.2 mg 06/23/21 14:24 Methylergonovine Maleate 0.2 Mg/Ml Vial IM ONCE PRN Uterine Bleeding Mineral Oil 30 ml 06/23/21 22:00 Mineral Oil 30 Ml Oral Liqd PO QHS PRN Constipation Misoprostol 800 mcg 06/23/21 14:24 Misoprostol 200 Mcg Tab MA ONCE PRN Uterine Bleeding Multivitamins/Iron/Calcium 1 each 06/24/21 10:00 [id number] Fumarate-Folic Acid Vit Tab PO QDAY [facility] Nalbuphine HCl 10 mg 06/23/21 14:24 Nalbuphine 10 Mg/1 Ml Inj IV Q2H PRN Pain, Moderate (4-6) Nitrofurantoin Macrocrystals 100 mg 06/23/21 14:33 06/23/21 21:06 Nitrofurantoin Monohyd/M-Cryst 100 Mg Cap PO 06/30/21 14:32 100 mg Q12HR [facility] Administration Ondansetron HCl 4 mg 06/23/21 14:24 Ondansetron 4 Mg/2 Ml Inj IV Q8H PRN Nausea And Vomiting Oxytocin 10 unit 06/23/21 14:24 Oxytocin 10 Unit/1 Ml Inj IM ONCE PRN Uterine Bleeding Promethazine HCl 25 mg 06/23/21 14:24 Promethazine 25 Mg Tab PO Q6H PRN Nausea And Vomiting Terbutaline Sulfate 0.25 mg 06/23/21 14:24 Terbutaline 1 Mg/1 Ml Inj SUB-Q ONCE PRN Hyperstimulation/Hypertonicity
[2021-06-24] MEDS: AMPICILLIN/NS 2 GM/100 ML 2 GM/100 ML BAG IV SCH ×3 (05:16→16:53)
[2021-06-24] MEDS: ACETAMINOPHEN 325 MG TAB PO PRN (05:21)
[2021-06-24] MEDS: LACTATED RINGERS 1,000 ML IV SCH ×2 (08:10→16:53)
[2021-06-24] MEDS: PRENATAL VIT27-FE FUMARATE-FOLIC ACID VIT TAB PO SCH (09:55)
[2021-06-24] MEDS: NITROFURANTOIN MONOHYD/M-CRYST 100 MG CAP PO SCH ×2 (09:55→22:47)
[2021-06-24] MEDS: BETAMET ACET/BETAMET NA PH 6 MG/ML INJ 5 ML MDV IM SCH (13:55)
--- NOTE | 2021-06-24 14:11 | Consultation ---
History of Present Illness Consult date: 06/24/21 Requesting physician: FRANSISCO HUTCHISON Reason for consult: pelvic pain, PROM History of present illness: 36 YO EGA 32.2wks by EDC 08/17/21 admited following SROM. At this time she denies any regular cramping, pressure, or bleeding. She reports periodic LOF. She also reports good activity. She denies any fever, chills, abdominal tenderness, or odor. She reports having had contractions for the week prior to SROM. She reports having had negative results on aneuploidy screening. She has GDM that has been diet controlled. Based on her reported values, it would suggest overall adequate glucose control. [facility] noted biometry consistent with her dates, and both reassuring BPP score of 8/8, and residual BRIAN noted at 8.5 cm She has received BMZ X 1 tracing is Cat 1, with no regular contractions Past History Past Medical History: no pertinent history Past Surgical History: section (x2) Family/Genetic History: none - Obstetrical History : 3 Medications and Allergies Allergies Allergy/AdvReac Type Severity Reaction Status Date / Time No Known Allergies Allergy Verified 12/18/19 23:42 Home Medications Medication Instructions Recorded Confirmed Last Taken Type Ibuprofen [Motrin 800 MG tab] 800 mg PO Q6H PRN #30 tablet 12/19/19 Unknown Rx oxyCODONE /ACETAMINOPHEN [Percocet 1 tab PO Q4H PRN #30 tablet 12/19/19 Unknown Rx 5/325 mg] Ferrous Sulfate [Feosol 325 MG tab] 325 mg PO QDAY 30 Days #30 tablet 12/21/19 Unknown Rx Active Meds: Active Medications Acetaminophen (Acetaminophen 325 Mg Tab) 650 mg PO Q4H PRN PRN Reason: Pain, Mild (1-3) Last Admin: 06/24/21 05:21 Dose: 650 mg Documented by: Ampicillin (Ampicillin 500 Mg Cap) 500 mg PO Q6HR [facility]; Protocol Stop: 06/30/21 17:59 Azithromycin (Azithromycin 250 Mg Tab) 500 mg PO QDAY [facility]; Protocol Stop: 06/30/21 17:59 Carboprost Tromethamine (Carboprost Tromethamine 250 Mcg/1 Ml Inj) 250 mcg IM ONCE PRN PRN Reason: Uterine Bleeding Docusate Sodium (Docusate Sodium 100 Mg Cap) 100 mg PO BID PRN PRN Reason: Constipation Ephedrine Sulfate (Ephedrine Sulfate 50 Mg/1 Ml Inj) 10 mg IV Q2M PRN PRN Reason: Hypotension Fentanyl (Fentanyl 100 Mcg/2 Ml Inj) 100 mcg IV Q2H PRN PRN Reason: Pain,Severe (7-10) LABOR PAIN Oxytocin/Sodium Chloride (Pitocin/Ns 30 Unit/500ml) 30 units in 500 mls @ 2 mls/hr IV TITR [facility]; Protocol Lactated Ringer's (Lactated Ringers) 1,000 mls @ 125 mls/hr IV DIRECT [facility] Last Admin: 06/24/21 08:10 Dose: 125 mls/hr Documented by: Oxytocin/Sodium Chloride (Pitocin/Ns 30 Unit/500ml) 30 units in 500 mls @ 40 mls/hr IV TITR [facility]; Protocol Ampicillin Sodium (Ampicillin/Ns 2 Gm/100 Ml) 2 gm in 100 mls @ 100 mls/hr IV Q6H [facility]; Protocol Stop: 06/25/21 14:59 Last Admin: 06/24/21 10:58 Dose: 100 mls/hr Documented by: Azithromycin (Zithromax/Ns) 500 mg in 250 mls @ 250 mls/hr IV Q24H [facility] Stop: 06/25/21 14:59 Last Admin: 06/23/21 21:06 Dose: 250 mls/hr Documented by: Loperamide HCl (Loperamide 2 Mg Cap) 2 mg PO ONCE PRN PRN Reason: give with Hemabate Methylergonovine Maleate (Methylergonovine Maleate 0.2 Mg/Ml Vial) 0.2 mg IM ONCE PRN PRN Reason: Uterine Bleeding Mineral Oil (Mineral Oil 30 Ml Oral Liqd) 30 ml PO QHS PRN PRN Reason: Constipation Misoprostol (Misoprostol 200 Mcg Tab) 800 mcg CO ONCE PRN PRN Reason: Uterine Bleeding Multivitamins/Iron/Calcium ( Tpi10-Le Fumarate-Folic Acid Vit Tab) 1 each PO QDAY [facility] Last Admin: 06/24/21 09:55 Dose: 1 each Documented by: Nalbuphine HCl (Nalbuphine 10 Mg/1 Ml Inj) 10 mg IV Q2H PRN PRN Reason: Pain, Moderate (4-6) Nitrofurantoin Macrocrystals (Nitrofurantoin Monohyd/M-Cryst 100 Mg Cap) 100 mg PO Q12HR [facility] Stop: 06/30/21 14:32 Last Admin: 06/24/21 09:55 Dose: 100 mg Documented by: Ondansetron HCl (Ondansetron 4 Mg/2 Ml Inj) 4 mg IV Q8H PRN PRN Reason: Nausea And Vomiting Oxytocin (Oxytocin 10 Unit/1 Ml Inj) 10 unit IM ONCE PRN PRN Reason: Uterine Bleeding Promethazine HCl (Promethazine 25 Mg Tab) 25 mg PO Q6H PRN PRN Reason: Nausea And Vomiting Terbutaline Sulfate (Terbutaline 1 Mg/1 Ml Inj) 0.25 mg SUB-Q ONCE PRN PRN Reason: Hyperstimulation/Hypertonicity - Vital Signs Vital signs: Vital Signs Pulse Pulse Ox 84 98 06/23/21 10:08 06/23/21 10:08 Temp Pulse Resp BP Pulse Ox 97.9 F 95 H 16 95/55 100 06/24/21 05:24 06/24/21 14:07 06/23/21 15:29 06/24/21 07:06 06/24/21 14:07 Results Result Diagrams: 06/23/21 11:05 06/23/21 11:05 All other labs normal. Ultrasound: report reviewed Assessment and Plan IMPRESSIONS: 1. IUP 32w2d 2. SROM with good residual BRIAN noted at 8.5 cm 3. Normal growth 4. Reassuring behavior 5. GDM - diet controlled 6. AMA - negative aneuploidy screen result reported 7. No sign of chorio, labor, or compromise 8. Getting BMX and Antibiotics RECOMMENDATIONS: 1. I agree with her present management 2. BPP twice weekly 3. Deliver for usual indications, or at 34 weeks 4. Monitor by fingerstick her FBS, 2-hr PP glucose values 5. Deliver by repeat 6. [facility] will follow periodically, or as requested
[2021-06-24] MEDS: AZITHROMYCIN/NS 500 MG/250 ML 500 MG/250 ML BAG IV SCH (21:30)
[2021-06-25] MEDS: AMPICILLIN/NS 2 GM/100 ML 2 GM/100 ML BAG IV SCH ×3 (00:06→12:00)
[2021-06-25] MEDS: LACTATED RINGERS 1,000 ML IV SCH (04:39)
--- NOTE | 2021-06-25 09:49 | Progress Note ---
Assessment and Plan - Patient Problems (1) premature rupture of membranes (PPROM) with unknown onset of labor Current Visit: No Status: Acute Plan to address problem: For admission until delivery --s/p steriods --Continue latency abx, D 10/29 --APA consulting --For repeat c/s if indication for delivery (2) GDM (gestational diabetes mellitus) Current Visit: Yes Status: Acute Plan to address problem: -Diet controlled. Continue to monitor Subjective - Subjective Date of service: 06/25/21 Principal diagnosis: HD#3, IUP at 32.3wks, PPROM; Interval history: Patient reports that she is feeling well still with mild persistent of leakage of fluid. Denies vaginal bleeding. Active fetus. Understands indication for admission. Objective - Vital Signs Vital Signs: Vital Signs - 12hr 06/24/21 06/24/21 06/24/21 21:49 21:54 21:59 Temperature Pulse Rate 89 92 H 86 Respiratory Rate Blood Pressure Blood Pressure [Right] O2 Sat by Pulse 98 97 96 Oximetry O2 Sat by Pulse Oximetry [ Bilateral] 06/24/21 06/24/21 06/24/21 22:04 22:09 22:14 Temperature Pulse Rate 85 87 88 Respiratory Rate Blood Pressure Blood Pressure [Right] O2 Sat by Pulse 96 96 98 Oximetry O2 Sat by Pulse Oximetry [ Bilateral] 06/24/21 06/24/21 06/24/21 22:19 22:24 22:29 Temperature Pulse Rate 86 83 83 Respiratory Rate Blood Pressure Blood Pressure [Right] O2 Sat by Pulse 96 96 96 Oximetry O2 Sat by Pulse Oximetry [ Bilateral] 06/24/21 06/24/21 06/24/21 22:34 22:46 22:51 Temperature Pulse Rate 81 97 H 90 Respiratory Rate Blood Pressure Blood Pressure [Right] O2 Sat by Pulse 97 99 98 Oximetry O2 Sat by Pulse Oximetry [ Bilateral] 06/24/21 06/24/21 06/24/21 22:56 23:01 23:06 Temperature Pulse Rate 79 90 85 Respiratory Rate Blood Pressure Blood Pressure [Right] O2 Sat by Pulse 98 98 98 Oximetry O2 Sat by Pulse Oximetry [ Bilateral] 06/24/21 06/24/21 06/24/21 23:11 23:16 23:21 Temperature Pulse Rate 92 H 78 86 Respiratory Rate Blood Pressure Blood Pressure [Right] O2 Sat by Pulse 98 99 99 Oximetry O2 Sat by Pulse Oximetry [ Bilateral] 06/24/21 06/24/21 06/24/21 23:26 23:31 23:36 Temperature Pulse Rate 81 86 84 Respiratory Rate Blood Pressure Blood Pressure [Right] O2 Sat by Pulse 98 98 96 Oximetry O2 Sat by Pulse Oximetry [ Bilateral] 06/24/21 06/24/21 06/24/21 23:41 23:46 23:58 Temperature Pulse Rate 77 80 85 Respiratory Rate Blood Pressure Blood Pressure [Right] O2 Sat by Pulse 97 97 100 Oximetry O2 Sat by Pulse Oximetry [ Bilateral] 06/25/21 06/25/21 06/25/21 00:03 00:08 00:11 Temperature Pulse Rate 79 76 76 Respiratory Rate Blood Pressure 90/51 Blood Pressure [Right] O2 Sat by Pulse 97 97 Oximetry O2 Sat by Pulse Oximetry [ Bilateral] 06/25/21 06/25/21 06/25/21 00:13 00:18 00:23 Temperature Pulse Rate 78 81 82 Respiratory Rate Blood Pressure Blood Pressure [Right] O2 Sat by Pulse 97 98 98 Oximetry O2 Sat by Pulse Oximetry [ Bilateral] 06/25/21 06/25/21 06/25/21 00:28 00:33 00:38 Temperature Pulse Rate 77 76 79 Respiratory Rate Blood Pressure Blood Pressure [Right] O2 Sat by Pulse 97 99 97 Oximetry O2 Sat by Pulse Oximetry [ Bilateral] 06/25/21 06/25/21 06/25/21 00:43 00:48 00:53 Temperature Pulse Rate 74 82 79 Respiratory Rate Blood Pressure Blood Pressure [Right] O2 Sat by Pulse 97 97 97 Oximetry O2 Sat by Pulse Oximetry [ Bilateral] 06/25/21 06/25/21 06/25/21 00:58 01:03 01:08 Temperature Pulse Rate 79 81 82 Respiratory Rate Blood Pressure Blood Pressure [Right] O2 Sat by Pulse 97 97 97 Oximetry O2 Sat by Pulse Oximetry [ Bilateral] 06/25/21 06/25/21 06/25/21 01:13 01:18 01:23 Temperature Pulse Rate 79 76 82 Respiratory Rate Blood Pressure Blood Pressure [Right] O2 Sat by Pulse 97 98 96 Oximetry O2 Sat by Pulse Oximetry [ Bilateral] 06/25/21 06/25/21 06/25/21 01:28 01:33 01:38 Temperature Pulse Rate 80 85 76 Respiratory Rate Blood Pressure Blood Pressure [Right] O2 Sat by Pulse 97 96 98 Oximetry O2 Sat by Pulse Oximetry [ Bilateral] 06/25/21 06/25/21 06/25/21 01:43 02:00 02:05 Temperature Pulse Rate 76 89 85 Respiratory Rate Blood Pressure Blood Pressure [Right] O2 Sat by Pulse 96 99 98 Oximetry O2 Sat by Pulse Oximetry [ Bilateral] 06/25/21 06/25/21 06/25/21 02:10 02:15 02:20 Temperature Pulse Rate 74 74 75 Respiratory Rate Blood Pressure Blood Pressure [Right] O2 Sat by Pulse 97 98 98 Oximetry O2 Sat by Pulse Oximetry [ Bilateral] 06/25/21 06/25/21 06/25/21 02:25 02:30 02:35 Temperature Pulse Rate 74 76 72 Respiratory Rate Blood Pressure Blood Pressure [Right] O2 Sat by Pulse 98 98 97 Oximetry O2 Sat by Pulse Oximetry [ Bilateral] 06/25/21 06/25/21 06/25/21 02:40 02:45 02:50 Temperature Pulse Rate 73 77 82 Respiratory Rate Blood Pressure Blood Pressure [Right] O2 Sat by Pulse 98 98 97 Oximetry O2 Sat by Pulse Oximetry [ Bilateral] 06/25/21 06/25/21 06/25/21 02:55 03:00 03:05 Temperature Pulse Rate 76 79 82 Respiratory Rate Blood Pressure Blood Pressure [Right] O2 Sat by Pulse 98 98 98 Oximetry O2 Sat by Pulse Oximetry [ Bilateral] 06/25/21 06/25/21 06/25/21 03:10 03:15 03:20 Temperature Pulse Rate 76 76 76 Respiratory Rate Blood Pressure Blood Pressure [Right] O2 Sat by Pulse 98 97 97 Oximetry O2 Sat by Pulse Oximetry [ Bilateral] 06/25/21 06/25/21 06/25/21 03:25 03:30 03:35 Temperature Pulse Rate 82 79 80 Respiratory Rate Blood Pressure Blood Pressure [Right] O2 Sat by Pulse 97 98 98 Oximetry O2 Sat by Pulse Oximetry [ Bilateral] 06/25/21 06/25/21 06/25/21 03:40 03:45 03:50 Temperature Pulse Rate 79 74 76 Respiratory Rate Blood Pressure Blood Pressure [Right] O2 Sat by Pulse 98 98 98 Oximetry O2 Sat by Pulse Oximetry [ Bilateral] 06/25/21 06/25/21 06/25/21 03:55 04:00 04:05 Temperature Pulse Rate 79 77 81 Respiratory Rate Blood Pressure Blood Pressure [Right] O2 Sat by Pulse 97 97 97 Oximetry O2 Sat by Pulse Oximetry [ Bilateral] 06/25/21 06/25/21 06/25/21 04:10 04:15 04:26 Temperature Pulse Rate 92 H 85 86 Respiratory Rate Blood Pressure Blood Pressure [Right] O2 Sat by Pulse 99 97 99 Oximetry O2 Sat by Pulse Oximetry [ Bilateral] 06/25/21 06/25/21 06/25/21 04:31 04:36 04:41 Temperature Pulse Rate 79 72 77 Respiratory Rate Blood Pressure Blood Pressure [Right] O2 Sat by Pulse 99 97 97 Oximetry O2 Sat by Pulse Oximetry [ Bilateral] 06/25/21 06/25/21 06/25/21 04:46 04:51 04:56 Temperature Pulse Rate 74 76 75 Respiratory Rate Blood Pressure Blood Pressure [Right] O2 Sat by Pulse 98 98 98 Oximetry O2 Sat by Pulse Oximetry [ Bilateral] 06/25/21 06/25/21 06/25/21 05:01 05:06 05:11 Temperature Pulse Rate 75 80 75 Respiratory Rate Blood Pressure Blood Pressure [Right] O2 Sat by Pulse 97 98 98 Oximetry O2 Sat by Pulse Oximetry [ Bilateral] 06/25/21 06/25/21 06/25/21 05:16 05:21 05:26 Temperature Pulse Rate 81 81 79 Respiratory Rate Blood Pressure Blood Pressure [Right] O2 Sat by Pulse 98 97 98 Oximetry O2 Sat by Pulse Oximetry [ Bilateral] 06/25/21 06/25/21 06/25/21 05:31 05:36 05:41 Temperature Pulse Rate 90 84 76 Respiratory Rate Blood Pressure Blood Pressure [Right] O2 Sat by Pulse 99 98 98 Oximetry O2 Sat by Pulse Oximetry [ Bilateral] 06/25/21 06/25/21 06/25/21 05:46 05:56 06:01 Temperature Pulse Rate 88 91 H 94 H Respiratory Rate Blood Pressure Blood Pressure [Right] O2 Sat by Pulse 99 99 98 Oximetry O2 Sat by Pulse Oximetry [ Bilateral] 06/25/21 06/25/21 06/25/21 06:06 06:11 06:16 Temperature Pulse Rate 80 77 79 Respiratory Rate Blood Pressure Blood Pressure [Right] O2 Sat by Pulse 97 98 97 Oximetry O2 Sat by Pulse Oximetry [ Bilateral] 06/25/21 06/25/21 06/25/21 06:21 06:26 06:31 Temperature Pulse Rate 75 83 82 Respiratory Rate Blood Pressure Blood Pressure [Right] O2 Sat by Pulse 97 98 97 Oximetry O2 Sat by Pulse Oximetry [ Bilateral] 06/25/21 06/25/21 06/25/21 06:36 06:41 06:46 Temperature Pulse Rate 99 H 98 H 77 Respiratory Rate Blood Pressure Blood Pressure [Right] O2 Sat by Pulse 97 98 97 Oximetry O2 Sat by Pulse Oximetry [ Bilateral] 06/25/21 06/25/21 06/25/21 06:51 06:56 07:01 Temperature Pulse Rate 76 73 75 Respiratory Rate Blood Pressure Blood Pressure [Right] O2 Sat by Pulse 97 98 97 Oximetry O2 Sat by Pulse Oximetry [ Bilateral] 06/25/21 06/25/21 06/25/21 07:06 07:11 07:16 Temperature 98.3 F Pulse Rate 76 89 86 Respiratory 18 Rate Blood Pressure 96/57 Blood Pressure 96/57 [Right] O2 Sat by Pulse 99 98 96 Oximetry O2 Sat by Pulse 98 Oximetry [ Bilateral] 06/25/21 06/25/21 06/25/21 07:21 07:26 07:31 Temperature Pulse Rate 78 84 77 Respiratory Rate Blood Pressure Blood Pressure [Right] O2 Sat by Pulse 97 97 98 Oximetry O2 Sat by Pulse Oximetry [ Bilateral] 06/25/21 06/25/21 06/25/21 07:36 07:41 07:46 Temperature Pulse Rate 95 H 78 75 Respiratory Rate Blood Pressure Blood Pressure [Right] O2 Sat by Pulse 97 98 98 Oximetry O2 Sat by Pulse Oximetry [ Bilateral] 06/25/21 06/25/21 06/25/21 07:51 07:56 08:01 Temperature Pulse Rate 73 85 99 H Respiratory Rate Blood Pressure Blood Pressure [Right] O2 Sat by Pulse 98 98 99 Oximetry O2 Sat by Pulse Oximetry [ Bilateral] 06/25/21 06/25/21 06/25/21 08:06 08:11 08:16 Temperature Pulse Rate 90 84 102 H Respiratory Rate Blood Pressure Blood Pressure [Right] O2 Sat by Pulse 100 100 99 Oximetry O2 Sat by Pulse Oximetry [ Bilateral] 06/25/21 06/25/21 06/25/21 08:21 08:26 08:38 Temperature Pulse Rate 86 87 92 H Respiratory Rate Blood Pressure Blood Pressure [Right] O2 Sat by Pulse 99 99 91 Oximetry O2 Sat by Pulse Oximetry [ Bilateral] 06/25/21 06/25/21 06/25/21 08:43 08:48 08:53 Temperature Pulse Rate 77 94 H 98 H Respiratory Rate Blood Pressure Blood Pressure [Right] O2 Sat by Pulse 99 100 100 Oximetry O2 Sat by Pulse Oximetry [ Bilateral] 06/25/21 06/25/21 06/25/21 08:58 09:03 09:08 Temperature Pulse Rate 95 H 101 H 103 H Respiratory Rate Blood Pressure Blood Pressure [Right] O2 Sat by Pulse 100 99 99 Oximetry O2 Sat by Pulse Oximetry [ Bilateral] 06/25/21 06/25/21 06/25/21 09:13 09:18 09:23 Temperature Pulse Rate 95 H 98 H 97 H Respiratory Rate Blood Pressure Blood Pressure [Right] O2 Sat by Pulse 100 100 100 Oximetry O2 Sat by Pulse Oximetry [ Bilateral] 06/25/21 06/25/21 06/25/21 09:28 09:33 09:38 Temperature Pulse Rate 113 H 92 H 96 H Respiratory Rate Blood Pressure Blood Pressure [Right] O2 Sat by Pulse 99 99 99 Oximetry O2 Sat by Pulse Oximetry [ Bilateral] 06/25/21 09:43 Temperature Pulse Rate 92 H Respiratory Rate Blood Pressure Blood Pressure [Right] O2 Sat by Pulse 99 Oximetry O2 Sat by Pulse Oximetry [ Bilateral] - Exam Abdomen: Present: normal appearance, soft Uterus: Present: normal Uterine Contraction Monitor Mode: External Uterine Contraction Pattern: Irregular - Labs Labs: Abnormal Labs 06/23/21 06/23/21 06/23/21 11:05 11:05 12:40 MCV 78 L MCH 25 L RDW 22.9 H Seg Neutrophils % 76.5 H Sodium 136 L Carbon Dioxide 18 L Creatinine 0.3 L Albumin 3.3 L Membranes Rupture Positive A Laboratory Results - last 24 hr 06/23/21 Unknown Coronavirus (PCR) Negative
[2021-06-25] MEDS: PRENATAL VIT27-FE FUMARATE-FOLIC ACID VIT TAB PO SCH (09:59)
[2021-06-25] MEDS: NITROFURANTOIN MONOHYD/M-CRYST 100 MG CAP PO SCH ×2 (09:59→22:55)
--- NOTE | 2021-06-25 10:22 | Ultrasound Report ---
ULTRASOUND OBSTETRIC LIMITED ULTRASOUND BIOPHYSICAL PROFILE INDICATION / CLINICAL INFORMATION: FWB. Amniotic fluid index. TECHNIQUE: Transabdominal. COMPARISON: None available. FINDINGS: BREATHING MOVEMENT = 2 GROSS BODY MOVEMENT = 2 TONE = 2 QUALITATIVE AMNIOTIC FLUID VOLUME = 2 TOTAL BIOPHYSICAL SCORE = 8/8 HEART RATE (beats per minute): 147 AMNIOTIC FLUID INDEX (cm) = 8 (normal = 7-24 cm) PRESENTATION: Transverse. Head on the maternal left side. ADDITIONAL FINDINGS: None. IMPRESSION: 1. Biophysical Score = 8/8 2. Amniotic fluid index of 8 cm. Signer Name: Marito Fine MD Signed: 06/25/2021 10:17 AM Workstation Name: [email or web address]
[2021-06-25] MEDS: ACETAMINOPHEN 325 MG TAB PO PRN ×2 (11:47→19:42)
[2021-06-25] MEDS: DOCUSATE SODIUM 100 MG CAP PO PRN (11:47)
[2021-06-25] MEDS: AZITHROMYCIN 250 MG TAB PO SCH (17:09)
[2021-06-25] MEDS: AMPICILLIN 500 MG CAP PO SCH (17:09)
[2021-06-26] MEDS: AMPICILLIN 500 MG CAP PO SCH ×3 (00:05→19:50)
[2021-06-26] MEDS: LACTATED RINGERS 1,000 ML IV SCH ×3 (00:09→17:45)
[2021-06-26] MEDS: PRENATAL VIT27-FE FUMARATE-FOLIC ACID VIT TAB PO SCH (09:17)
[2021-06-26] MEDS: NITROFURANTOIN MONOHYD/M-CRYST 100 MG CAP PO SCH ×2 (09:17→22:10)
--- NOTE | 2021-06-26 10:29 | Progress Note ---
Subjective - Subjective Date of service: 06/26/21 Principal diagnosis: HD#4, IUP at 32.4wks, PPROM; Interval history: expectant management stable at bedside FHT documented 140, Category 1 cervix /-4( not in labor) SP steroids, on PO ABX continue biweekly BPP(06/25 BPP 04/01, presentation transverse) delivery for acute /maternal indication or at 34 weeks expectant management Rox Borrero MD Objective - Vital Signs Vital Signs: Vital Signs - 12hr 06/25/21 06/25/21 06/25/21 22:35 22:40 22:45 Temperature Pulse Rate 104 H 82 78 Respiratory Rate Blood Pressure Blood Pressure [Right] O2 Sat by Pulse 98 97 97 Oximetry O2 Sat by Pulse Oximetry [ Bilateral] 06/25/21 06/25/21 06/25/21 22:50 22:55 23:00 Temperature Pulse Rate 84 76 80 Respiratory Rate Blood Pressure Blood Pressure [Right] O2 Sat by Pulse 97 97 97 Oximetry O2 Sat by Pulse Oximetry [ Bilateral] 06/25/21 06/25/21 06/25/21 23:05 23:10 23:15 Temperature Pulse Rate 96 H 82 78 Respiratory Rate Blood Pressure Blood Pressure [Right] O2 Sat by Pulse 98 98 99 Oximetry O2 Sat by Pulse Oximetry [ Bilateral] 06/25/21 06/25/21 06/25/21 23:20 23:25 23:26 Temperature Pulse Rate 82 76 72 Respiratory Rate Blood Pressure 98/55 Blood Pressure [Right] O2 Sat by Pulse 99 99 Oximetry O2 Sat by Pulse Oximetry [ Bilateral] 06/25/21 06/25/21 06/25/21 23:30 23:35 23:40 Temperature Pulse Rate 80 75 69 Respiratory Rate Blood Pressure Blood Pressure [Right] O2 Sat by Pulse 98 97 97 Oximetry O2 Sat by Pulse Oximetry [ Bilateral] 06/25/21 06/25/21 06/25/21 23:45 23:50 23:55 Temperature Pulse Rate 72 73 72 Respiratory Rate Blood Pressure Blood Pressure [Right] O2 Sat by Pulse 97 97 97 Oximetry O2 Sat by Pulse Oximetry [ Bilateral] 06/26/21 06/26/21 06/26/21 00:00 00:05 00:10 Temperature Pulse Rate 67 74 75 Respiratory Rate Blood Pressure Blood Pressure [Right] O2 Sat by Pulse 98 97 97 Oximetry O2 Sat by Pulse Oximetry [ Bilateral] 06/26/21 06/26/21 06/26/21 00:15 00:20 00:25 Temperature Pulse Rate 72 72 71 Respiratory Rate Blood Pressure Blood Pressure [Right] O2 Sat by Pulse 97 97 98 Oximetry O2 Sat by Pulse Oximetry [ Bilateral] 06/26/21 06/26/21 06/26/21 00:26 00:35 00:40 Temperature 98.0 F Pulse Rate 86 74 Respiratory Rate Blood Pressure Blood Pressure [Right] O2 Sat by Pulse 99 97 Oximetry O2 Sat by Pulse Oximetry [ Bilateral] 06/26/21 06/26/21 06/26/21 00:45 00:50 00:55 Temperature Pulse Rate 78 71 73 Respiratory Rate Blood Pressure Blood Pressure [Right] O2 Sat by Pulse 98 98 97 Oximetry O2 Sat by Pulse Oximetry [ Bilateral] 06/26/21 06/26/21 06/26/21 01:00 01:05 01:10 Temperature Pulse Rate 70 70 75 Respiratory Rate Blood Pressure Blood Pressure [Right] O2 Sat by Pulse 99 98 98 Oximetry O2 Sat by Pulse Oximetry [ Bilateral] 06/26/21 06/26/21 06/26/21 01:15 01:20 01:25 Temperature Pulse Rate 77 83 77 Respiratory Rate Blood Pressure Blood Pressure [Right] O2 Sat by Pulse 97 98 98 Oximetry O2 Sat by Pulse Oximetry [ Bilateral] 06/26/21 06/26/21 06/26/21 01:30 01:35 01:40 Temperature Pulse Rate 76 78 76 Respiratory Rate Blood Pressure Blood Pressure [Right] O2 Sat by Pulse 98 97 98 Oximetry O2 Sat by Pulse Oximetry [ Bilateral] 06/26/21 06/26/21 06/26/21 01:45 01:50 01:55 Temperature Pulse Rate 78 82 80 Respiratory Rate Blood Pressure Blood Pressure [Right] O2 Sat by Pulse 97 98 98 Oximetry O2 Sat by Pulse Oximetry [ Bilateral] 06/26/21 06/26/21 06/26/21 02:00 02:05 02:10 Temperature Pulse Rate 77 75 77 Respiratory Rate Blood Pressure Blood Pressure [Right] O2 Sat by Pulse 99 97 97 Oximetry O2 Sat by Pulse Oximetry [ Bilateral] 06/26/21 06/26/21 06/26/21 02:15 02:20 02:25 Temperature Pulse Rate 81 81 83 Respiratory Rate Blood Pressure Blood Pressure [Right] O2 Sat by Pulse 97 97 97 Oximetry O2 Sat by Pulse Oximetry [ Bilateral] 06/26/21 06/26/21 06/26/21 02:30 02:35 02:37 Temperature 98.1 F Pulse Rate 85 84 Respiratory 17 Rate Blood Pressure Blood Pressure [Right] O2 Sat by Pulse 96 97 Oximetry O2 Sat by Pulse Oximetry [ Bilateral] 06/26/21 06/26/21 06/26/21 02:40 02:45 02:50 Temperature Pulse Rate 84 87 110 H Respiratory Rate Blood Pressure Blood Pressure [Right] O2 Sat by Pulse 97 97 98 Oximetry O2 Sat by Pulse Oximetry [ Bilateral] 06/26/21 06/26/21 06/26/21 02:59 03:04 03:09 Temperature Pulse Rate 89 88 77 Respiratory Rate Blood Pressure Blood Pressure [Right] O2 Sat by Pulse 97 95 96 Oximetry O2 Sat by Pulse Oximetry [ Bilateral] 06/26/21 06/26/21 06/26/21 03:14 03:19 03:24 Temperature Pulse Rate 85 77 73 Respiratory Rate Blood Pressure Blood Pressure [Right] O2 Sat by Pulse 97 97 98 Oximetry O2 Sat by Pulse Oximetry [ Bilateral] 06/26/21 06/26/21 06/26/21 03:29 03:34 03:39 Temperature Pulse Rate 73 83 78 Respiratory Rate Blood Pressure Blood Pressure [Right] O2 Sat by Pulse 98 98 98 Oximetry O2 Sat by Pulse Oximetry [ Bilateral] 06/26/21 06/26/21 06/26/21 03:44 03:49 03:54 Temperature Pulse Rate 83 82 75 Respiratory Rate Blood Pressure Blood Pressure [Right] O2 Sat by Pulse 98 97 97 Oximetry O2 Sat by Pulse Oximetry [ Bilateral] 06/26/21 06/26/21 06/26/21 03:59 04:04 04:09 Temperature Pulse Rate 80 82 81 Respiratory Rate Blood Pressure Blood Pressure [Right] O2 Sat by Pulse 97 97 97 Oximetry O2 Sat by Pulse Oximetry [ Bilateral] 06/26/21 06/26/21 06/26/21 04:14 04:19 04:24 Temperature Pulse Rate 80 80 83 Respiratory Rate Blood Pressure Blood Pressure [Right] O2 Sat by Pulse 97 98 96 Oximetry O2 Sat by Pulse Oximetry [ Bilateral] 06/26/21 06/26/2121 04:29 04:30 04:34 Temperature 98.3 F Pulse Rate 80 82 Respiratory 18 Rate Blood Pressure Blood Pressure [Right] O2 Sat by Pulse 97 95 Oximetry O2 Sat by Pulse Oximetry [ Bilateral] 06/26/21 06/26/21 06/26/21 04:39 04:44 04:49 Temperature Pulse Rate 84 100 H 74 Respiratory Rate Blood Pressure Blood Pressure [Right] O2 Sat by Pulse 98 97 98 Oximetry O2 Sat by Pulse Oximetry [ Bilateral] 06/26/21 06/26/21 06/26/21 04:54 04:59 05:01 Temperature Pulse Rate 77 106 H 72 Respiratory Rate Blood Pressure Blood Pressure [Right] O2 Sat by Pulse 97 98 94 Oximetry O2 Sat by Pulse Oximetry [ Bilateral] 06/26/21 06/26/21 06/26/21 05:04 05:09 05:14 Temperature Pulse Rate 71 85 79 Respiratory Rate Blood Pressure Blood Pressure [Right] O2 Sat by Pulse 97 97 97 Oximetry O2 Sat by Pulse Oximetry [ Bilateral] 06/26/21 06/26/21 06/26/21 05:19 05:24 05:29 Temperature Pulse Rate 79 78 83 Respiratory Rate Blood Pressure Blood Pressure [Right] O2 Sat by Pulse 97 97 97 Oximetry O2 Sat by Pulse Oximetry [ Bilateral] 06/26/21 06/26/21 06/26/21 05:34 05:36 05:39 Temperature Pulse Rate 76 83 90 Respiratory Rate Blood Pressure 99/54 Blood Pressure [Right] O2 Sat by Pulse 99 97 Oximetry O2 Sat by Pulse Oximetry [ Bilateral] 06/26/21 06/26/21 06/26/21 05:47 05:48 05:53 Temperature Pulse Rate 69 84 73 Respiratory Rate Blood Pressure Blood Pressure [Right] O2 Sat by Pulse 90 100 98 Oximetry O2 Sat by Pulse Oximetry [ Bilateral] 06/26/21 06/26/21 06/26/21 05:58 06:03 06:08 Temperature Pulse Rate 81 75 73 Respiratory Rate Blood Pressure Blood Pressure [Right] O2 Sat by Pulse 97 97 96 Oximetry O2 Sat by Pulse Oximetry [ Bilateral] 06/26/21 06/26/21 06/26/21 06:13 06:18 06:23 Temperature Pulse Rate 77 77 74 Respiratory Rate Blood Pressure Blood Pressure [Right] O2 Sat by Pulse 97 96 98 Oximetry O2 Sat by Pulse Oximetry [ Bilateral] 06/26/21 06/26/21 06/26/21 06:28 06:33 06:38 Temperature 98.2 F Pulse Rate 85 90 81 Respiratory 17 Rate Blood Pressure Blood Pressure [Right] O2 Sat by Pulse 99 98 99 Oximetry O2 Sat by Pulse Oximetry [ Bilateral] 06/26/21 06/26/21 06/26/21 06:43 06:48 06:53 Temperature Pulse Rate 82 80 79 Respiratory Rate Blood Pressure Blood Pressure [Right] O2 Sat by Pulse 98 96 97 Oximetry O2 Sat by Pulse Oximetry [ Bilateral] 06/26/21 06/26/21 06/26/21 06:58 07:03 07:08 Temperature Pulse Rate 80 79 81 Respiratory Rate Blood Pressure Blood Pressure [Right] O2 Sat by Pulse 99 97 99 Oximetry O2 Sat by Pulse Oximetry [ Bilateral] 06/26/21 06/26/21 06/26/21 07:13 07:18 07:23 Temperature Pulse Rate 77 80 77 Respiratory Rate Blood Pressure Blood Pressure [Right] O2 Sat by Pulse 97 97 96 Oximetry O2 Sat by Pulse Oximetry [ Bilateral] 06/26/21 06/26/21 06/26/21 07:28 07:30 07:33 Temperature 97.7 F Pulse Rate 77 94 H 75 Respiratory 16 Rate Blood Pressure Blood Pressure 105/58 [Right] O2 Sat by Pulse 99 98 97 Oximetry O2 Sat by Pulse 99 Oximetry [ Bilateral] 06/26/21 06/26/21 06/26/21 07:38 07:43 07:48 Temperature Pulse Rate 85 78 83 Respiratory Rate Blood Pressure Blood Pressure [Right] O2 Sat by Pulse 97 97 96 Oximetry O2 Sat by Pulse Oximetry [ Bilateral] 06/26/21 06/26/21 06/26/21 07:53 07:58 08:03 Temperature Pulse Rate 81 77 78 Respiratory Rate Blood Pressure Blood Pressure [Right] O2 Sat by Pulse 96 97 98 Oximetry O2 Sat by Pulse Oximetry [ Bilateral] 06/26/21 06/26/21 06/26/21 08:08 08:19 08:20 Temperature Pulse Rate 85 93 H 85 Respiratory Rate Blood Pressure 105/58 Blood Pressure [Right] O2 Sat by Pulse 97 99 Oximetry O2 Sat by Pulse Oximetry [ Bilateral] 06/26/21 06/26/21 06/26/21 08:25 08:30 08:35 Temperature Pulse Rate 102 H 95 H 99 H Respiratory Rate Blood Pressure Blood Pressure [Right] O2 Sat by Pulse 99 98 98 Oximetry O2 Sat by Pulse Oximetry [ Bilateral] 06/26/21 06/26/21 06/26/21 08:40 08:45 08:50 Temperature Pulse Rate 94 H 104 H 89 Respiratory Rate Blood Pressure Blood Pressure [Right] O2 Sat by Pulse 98 98 96 Oximetry O2 Sat by Pulse Oximetry [ Bilateral] 06/26/21 06/26/21 06/26/21 08:55 09:00 09:05 Temperature Pulse Rate 90 108 H 92 H Respiratory Rate Blood Pressure Blood Pressure [Right] O2 Sat by Pulse 97 97 97 Oximetry O2 Sat by Pulse Oximetry [ Bilateral] 06/26/21 06/26/21 06/26/21 09:10 09:15 09:20 Temperature Pulse Rate 86 82 90 Respiratory Rate Blood Pressure Blood Pressure [Right] O2 Sat by Pulse 97 97 98 Oximetry O2 Sat by Pulse Oximetry [ Bilateral] 06/26/21 06/26/21 06/26/21 09:25 09:30 09:39 Temperature Pulse Rate 84 95 H Respiratory Rate Blood Pressure Blood Pressure [Right] O2 Sat by Pulse 99 99 97 Oximetry O2 Sat by Pulse Oximetry [ Bilateral] 06/26/21 06/26/21 06/26/21 09:44 09:49 09:54 Temperature Pulse Rate 83 83 81 Respiratory Rate Blood Pressure Blood Pressure [Right] O2 Sat by Pulse 97 97 99 Oximetry O2 Sat by Pulse Oximetry [ Bilateral] 06/26/21 06/26/21 06/26/21 09:59 10:04 10:09 Temperature Pulse Rate 87 89 89 Respiratory Rate Blood Pressure Blood Pressure [Right] O2 Sat by Pulse 97 96 97 Oximetry O2 Sat by Pulse Oximetry [ Bilateral] 06/26/21 06/26/21 06/26/21 10:14 10:19 10:24 Temperature Pulse Rate 88 98 H 92 H Respiratory Rate Blood Pressure Blood Pressure [Right] O2 Sat by Pulse 97 98 98 Oximetry O2 Sat by Pulse Oximetry [ Bilateral] - Labs Labs: Abnormal Labs 06/23/21 06/23/21 06/23/21 11:05 11:05 12:40 MCV 78 L MCH 25 L RDW 22.9 H Seg Neutrophils % 76.5 H Sodium 136 L Carbon Dioxide 18 L Creatinine 0.3 L Albumin 3.3 L Membranes Rupture Positive A
[2021-06-26] MEDS: AZITHROMYCIN 250 MG TAB PO SCH (17:45)
[2021-06-27] MEDS: AMPICILLIN 500 MG CAP PO SCH ×3 (01:58→18:54)
[2021-06-27] MEDS: LACTATED RINGERS 1,000 ML IV SCH ×2 (07:33→12:19)
--- NOTE | 2021-06-27 09:45 | Progress Note ---
Assessment and Plan - Patient Problems (1) premature rupture of membranes (PPROM) with unknown onset of labor Current Visit: No Status: Acute Plan to address problem: For admission until delivery --s/p steriods --Continue latency abx, D 12/29 --APA consulting --For repeat c/s if indication for delivery (2) GDM (gestational diabetes mellitus) Current Visit: Yes Status: Acute Plan to address problem: -Diet controlled. Continue to monitor Subjective - Subjective Date of service: 06/27/21 Principal diagnosis: HD#6, IUP at 32.6wks, PPROM; Interval history: Patient reports that she is feeling well still with mild persistent of leakage of fluid. Denies vaginal bleeding. Active fetus. Understands indication for admission. Objective - Vital Signs Vital Signs: Vital Signs - 12hr 06/26/21 06/26/21 06/26/21 21:48 21:53 21:58 Temperature Pulse Rate 83 85 Respiratory Rate Blood Pressure O2 Sat by Pulse 99 96 96 Oximetry O2 Sat by Pulse Oximetry [ Bilateral] 06/26/21 06/26/21 06/26/21 22:03 22:08 22:13 Temperature Pulse Rate 89 93 H 89 Respiratory Rate Blood Pressure O2 Sat by Pulse 97 97 98 Oximetry O2 Sat by Pulse Oximetry [ Bilateral] 06/26/21 06/26/21 06/26/21 22:18 22:23 22:28 Temperature Pulse Rate 83 84 79 Respiratory Rate Blood Pressure O2 Sat by Pulse 97 97 96 Oximetry O2 Sat by Pulse Oximetry [ Bilateral] 06/26/21 06/26/21 06/26/21 22:33 22:39 22:44 Temperature Pulse Rate 83 89 73 Respiratory Rate Blood Pressure O2 Sat by Pulse 97 98 97 Oximetry O2 Sat by Pulse Oximetry [ Bilateral] 06/26/21 06/26/21 06/26/21 22:49 22:54 22:59 Temperature Pulse Rate 74 79 85 Respiratory Rate Blood Pressure O2 Sat by Pulse 97 96 97 Oximetry O2 Sat by Pulse Oximetry [ Bilateral] 06/26/21 06/26/21 06/26/21 23:04 23:09 23:14 Temperature Pulse Rate 81 77 81 Respiratory Rate Blood Pressure O2 Sat by Pulse 98 95 96 Oximetry O2 Sat by Pulse Oximetry [ Bilateral] 06/26/21 06/26/21 06/26/21 23:19 23:24 23:26 Temperature Pulse Rate 75 82 73 Respiratory Rate Blood Pressure O2 Sat by Pulse 95 96 94 Oximetry O2 Sat by Pulse Oximetry [ Bilateral] 06/26/21 06/26/21 06/26/21 23:29 23:34 23:39 Temperature Pulse Rate 81 80 75 Respiratory Rate Blood Pressure O2 Sat by Pulse 95 98 97 Oximetry O2 Sat by Pulse Oximetry [ Bilateral] 06/26/21 06/26/21 06/26/21 23:44 23:49 23:54 Temperature Pulse Rate 77 73 77 Respiratory Rate Blood Pressure O2 Sat by Pulse 96 97 96 Oximetry O2 Sat by Pulse Oximetry [ Bilateral] 06/26/21 06/27/21 06/27/21 23:59 00:04 00:09 Temperature Pulse Rate 78 75 79 Respiratory Rate Blood Pressure O2 Sat by Pulse 96 96 95 Oximetry O2 Sat by Pulse Oximetry [ Bilateral] 06/27/21 06/27/21 06/27/21 00:14 00:19 00:24 Temperature Pulse Rate 70 66 81 Respiratory Rate Blood Pressure O2 Sat by Pulse 96 96 95 Oximetry O2 Sat by Pulse Oximetry [ Bilateral] 06/27/21 06/27/21 06/27/21 00:29 00:33 00:34 Temperature Pulse Rate 66 78 97 H Respiratory Rate Blood Pressure O2 Sat by Pulse 96 94 97 Oximetry O2 Sat by Pulse Oximetry [ Bilateral] 06/27/21 06/27/21 06/27/21 00:39 00:44 00:49 Temperature Pulse Rate 77 75 77 Respiratory Rate Blood Pressure O2 Sat by Pulse 96 97 96 Oximetry O2 Sat by Pulse Oximetry [ Bilateral] 06/27/21 06/27/21 06/27/21 00:54 00:59 01:04 Temperature Pulse Rate 77 77 76 Respiratory Rate Blood Pressure O2 Sat by Pulse 96 96 96 Oximetry O2 Sat by Pulse Oximetry [ Bilateral] 06/27/21 06/27/21 06/27/21 01:09 01:17 01:22 Temperature Pulse Rate 82 85 85 Respiratory Rate Blood Pressure O2 Sat by Pulse 97 98 97 Oximetry O2 Sat by Pulse Oximetry [ Bilateral] 06/27/21 06/27/21 06/27/21 01:27 01:32 01:37 Temperature Pulse Rate 80 78 75 Respiratory Rate Blood Pressure O2 Sat by Pulse 97 97 98 Oximetry O2 Sat by Pulse Oximetry [ Bilateral] 06/27/21 06/27/21 06/27/21 01:42 01:47 01:52 Temperature Pulse Rate 79 69 82 Respiratory Rate Blood Pressure O2 Sat by Pulse 97 96 98 Oximetry O2 Sat by Pulse Oximetry [ Bilateral] 06/27/21 06/27/21 06/27/21 01:57 02:02 02:07 Temperature 97.9 F Pulse Rate 85 78 80 Respiratory Rate Blood Pressure O2 Sat by Pulse 98 97 97 Oximetry O2 Sat by Pulse Oximetry [ Bilateral] 06/27/21 06/27/21 06/27/21 02:12 02:17 02:22 Temperature Pulse Rate 78 78 77 Respiratory Rate Blood Pressure O2 Sat by Pulse 97 97 97 Oximetry O2 Sat by Pulse Oximetry [ Bilateral] 06/27/21 06/27/21 06/27/21 02:27 02:32 02:37 Temperature Pulse Rate 83 80 80 Respiratory Rate Blood Pressure O2 Sat by Pulse 97 97 97 Oximetry O2 Sat by Pulse Oximetry [ Bilateral] 06/27/21 06/27/21 06/27/21 02:42 02:47 02:52 Temperature Pulse Rate 74 82 83 Respiratory Rate Blood Pressure O2 Sat by Pulse 95 98 97 Oximetry O2 Sat by Pulse Oximetry [ Bilateral] 06/27/21 06/27/21 06/27/21 02:57 03:02 03:07 Temperature Pulse Rate 91 H 84 84 Respiratory Rate Blood Pressure O2 Sat by Pulse 97 97 97 Oximetry O2 Sat by Pulse Oximetry [ Bilateral] 06/27/21 06/27/21 06/27/21 03:12 03:17 03:22 Temperature Pulse Rate 88 79 80 Respiratory Rate Blood Pressure O2 Sat by Pulse 97 95 96 Oximetry O2 Sat by Pulse Oximetry [ Bilateral] 06/27/21 06/27/21 06/27/21 03:27 03:32 03:37 Temperature Pulse Rate 82 79 82 Respiratory Rate Blood Pressure O2 Sat by Pulse 96 96 96 Oximetry O2 Sat by Pulse Oximetry [ Bilateral] 06/27/21 06/27/21 06/27/21 03:42 03:47 03:52 Temperature Pulse Rate 86 84 82 Respiratory Rate Blood Pressure O2 Sat by Pulse 96 96 96 Oximetry O2 Sat by Pulse Oximetry [ Bilateral] 06/27/21 06/27/21 06/27/21 03:57 04:02 04:07 Temperature Pulse Rate 84 79 85 Respiratory Rate Blood Pressure O2 Sat by Pulse 97 98 98 Oximetry O2 Sat by Pulse Oximetry [ Bilateral] 06/27/21 06/27/21 06/27/21 04:12 04:17 04:22 Temperature Pulse Rate 86 99 H 81 Respiratory Rate Blood Pressure O2 Sat by Pulse 98 97 97 Oximetry O2 Sat by Pulse Oximetry [ Bilateral] 06/27/21 06/27/21 06/27/21 04:28 04:33 04:38 Temperature Pulse Rate 87 91 H 82 Respiratory Rate Blood Pressure O2 Sat by Pulse 98 97 97 Oximetry O2 Sat by Pulse Oximetry [ Bilateral] 06/27/21 06/27/21 06/27/21 04:43 04:48 04:53 Temperature Pulse Rate 83 86 82 Respiratory Rate Blood Pressure O2 Sat by Pulse 97 98 97 Oximetry O2 Sat by Pulse Oximetry [ Bilateral] 06/27/21 06/27/21 06/27/21 04:58 05:03 05:08 Temperature Pulse Rate 84 80 85 Respiratory Rate Blood Pressure O2 Sat by Pulse 98 98 97 Oximetry O2 Sat by Pulse Oximetry [ Bilateral] 06/27/21 06/27/21 06/27/21 05:13 05:18 05:23 Temperature Pulse Rate 93 H 87 85 Respiratory Rate Blood Pressure O2 Sat by Pulse 99 99 98 Oximetry O2 Sat by Pulse Oximetry [ Bilateral] 06/27/21 06/27/21 06/27/21 05:28 05:33 05:38 Temperature Pulse Rate 89 86 84 Respiratory Rate Blood Pressure O2 Sat by Pulse 98 99 97 Oximetry O2 Sat by Pulse Oximetry [ Bilateral] 06/27/21 06/27/21 06/27/21 05:43 05:48 05:53 Temperature Pulse Rate 99 H 81 82 Respiratory Rate Blood Pressure O2 Sat by Pulse 98 96 97 Oximetry O2 Sat by Pulse Oximetry [ Bilateral] 06/27/21 06/27/21 06/27/21 05:58 06:03 06:08 Temperature Pulse Rate 81 79 83 Respiratory Rate Blood Pressure O2 Sat by Pulse 95 96 97 Oximetry O2 Sat by Pulse Oximetry [ Bilateral] 06/27/21 06/27/21 06/27/21 06:13 06:18 06:23 Temperature Pulse Rate 78 85 87 Respiratory Rate Blood Pressure O2 Sat by Pulse 97 95 98 Oximetry O2 Sat by Pulse Oximetry [ Bilateral] 06/27/21 06/27/21 06/27/21 06:28 06:33 06:38 Temperature Pulse Rate 84 85 85 Respiratory Rate Blood Pressure O2 Sat by Pulse 97 96 97 Oximetry O2 Sat by Pulse Oximetry [ Bilateral] 06/27/21 06/27/21 06/27/21 06:43 06:48 06:53 Temperature Pulse Rate 91 H 82 83 Respiratory Rate Blood Pressure O2 Sat by Pulse 98 95 98 Oximetry O2 Sat by Pulse Oximetry [ Bilateral] 06/27/21 06/27/21 06/27/21 06:58 07:03 07:08 Temperature Pulse Rate 83 83 84 Respiratory Rate Blood Pressure O2 Sat by Pulse 96 97 97 Oximetry O2 Sat by Pulse Oximetry [ Bilateral] 06/27/21 06/27/21 06/27/21 07:13 07:18 07:23 Temperature Pulse Rate 85 85 85 Respiratory Rate Blood Pressure O2 Sat by Pulse 96 97 96 Oximetry O2 Sat by Pulse Oximetry [ Bilateral] 06/27/21 06/27/21 06/27/21 07:27 07:28 07:29 Temperature 98.9 F Pulse Rate 89 90 88 Respiratory 16 Rate Blood Pressure 88/52 82/52 O2 Sat by Pulse 97 97 Oximetry O2 Sat by Pulse 98 Oximetry [ Bilateral] 06/27/21 06/27/21 06/27/21 07:33 07:38 07:43 Temperature Pulse Rate 94 H 91 H 90 Respiratory Rate Blood Pressure O2 Sat by Pulse 98 97 98 Oximetry O2 Sat by Pulse Oximetry [ Bilateral] 06/27/21 06/27/21 06/27/21 07:48 07:53 07:58 Temperature Pulse Rate 103 H 79 84 Respiratory Rate Blood Pressure O2 Sat by Pulse 99 99 96 Oximetry O2 Sat by Pulse Oximetry [ Bilateral] 06/27/21 06/27/21 06/27/21 08:03 08:05 08:08 Temperature Pulse Rate 85 82 85 Respiratory Rate Blood Pressure 88/52 O2 Sat by Pulse 97 96 Oximetry O2 Sat by Pulse Oximetry [ Bilateral] 06/27/21 06/27/21 06/27/21 08:13 08:18 08:23 Temperature Pulse Rate 85 81 83 Respiratory Rate Blood Pressure O2 Sat by Pulse 98 97 97 Oximetry O2 Sat by Pulse Oximetry [ Bilateral] 06/27/21 06/27/21 06/27/21 08:28 08:33 08:38 Temperature Pulse Rate 79 73 82 Respiratory Rate Blood Pressure O2 Sat by Pulse 96 96 95 Oximetry O2 Sat by Pulse Oximetry [ Bilateral] 06/27/21 06/27/21 06/27/21 08:39 08:43 08:45 Temperature Pulse Rate 77 66 79 Respiratory Rate Blood Pressure O2 Sat by Pulse 94 96 94 Oximetry O2 Sat by Pulse Oximetry [ Bilateral] 06/27/21 06/27/21 06/27/21 08:48 08:53 08:58 Temperature Pulse Rate 82 85 87 Respiratory Rate Blood Pressure O2 Sat by Pulse 95 97 96 Oximetry O2 Sat by Pulse Oximetry [ Bilateral] 06/27/21 06/27/21 06/27/21 09:03 09:08 09:13 Temperature Pulse Rate 87 81 83 Respiratory Rate Blood Pressure O2 Sat by Pulse 97 97 95 Oximetry O2 Sat by Pulse Oximetry [ Bilateral] 06/27/21 06/27/21 06/27/21 09:18 09:23 09:28 Temperature Pulse Rate 85 84 84 Respiratory Rate Blood Pressure O2 Sat by Pulse 96 96 96 Oximetry O2 Sat by Pulse Oximetry [ Bilateral] 06/27/21 06/27/21 06/27/21 09:33 09:38 09:43 Temperature Pulse Rate 82 87 89 Respiratory Rate Blood Pressure O2 Sat by Pulse 96 96 97 Oximetry O2 Sat by Pulse Oximetry [ Bilateral] - Exam Abdomen: Present: normal appearance, soft Uterus: Present: normal FHR: category 1 Uterine Contraction Monitor Mode: External Uterine Contraction Pattern: Absent - Labs Labs: Abnormal Labs 06/23/21 06/23/21 06/23/21 11:05 11:05 12:40 MCV 78 L MCH 25 L RDW 22.9 H Seg Neutrophils % 76.5 H Sodium 136 L Carbon Dioxide 18 L Creatinine 0.3 L Albumin 3.3 L Membranes Rupture Positive A
[2021-06-27] MEDS: NITROFURANTOIN MONOHYD/M-CRYST 100 MG CAP PO SCH (10:29)
[2021-06-27] MEDS: PRENATAL VIT27-FE FUMARATE-FOLIC ACID VIT TAB PO SCH (10:29)
[2021-06-27] MEDS: DOCUSATE SODIUM 100 MG CAP PO PRN (18:53)
[2021-06-27] MEDS: ACETAMINOPHEN 325 MG TAB PO PRN (18:54)
[2021-06-28] MEDS: AMPICILLIN 500 MG CAP PO SCH ×5 (00:21→23:59)
[2021-06-28] MEDS ORDERED: AMPICILLIN/NS 2 GM/100 ML 2 GM/100 ML BAG IV ONE (00:36)
[2021-06-28] MEDS: PRENATAL VIT27-FE FUMARATE-FOLIC ACID VIT TAB PO SCH (10:47)
[2021-06-28] MEDS: NITROFURANTOIN MONOHYD/M-CRYST 100 MG CAP PO SCH ×2 (10:48→22:11)
--- NOTE | 2021-06-28 11:00 | Progress Note ---
Subjective - Subjective Date of service: 06/28/21 Principal diagnosis: HD#6, IUP at 32.6 wks, PPROM; Interval history: PPROM expectant management stable at bedside FHT documented 140, Category 1 cervix 40/-4( not in labor) SP steroids, on PO ABX Plan for today: labs, update type and screen, up to shower and chair continue biweekly BPP(06/27/21 BPP 8/8, presentation transverse with head to maternal left, BRIAN 8.0) delivery for acute /maternal indication or at 34 weeks expectant management Rox Borrero MD Objective - Vital Signs Vital Signs: Vital Signs - 12hr 06/27/21 06/27/21 06/27/21 23:03 23:08 23:11 Temperature Pulse Rate 73 73 74 Respiratory Rate Blood Pressure 99/55 Blood Pressure [Right] O2 Sat by Pulse 98 98 Oximetry O2 Sat by Pulse Oximetry [ Bilateral] 06/27/21 06/27/21 06/27/21 23:13 23:18 23:23 Temperature Pulse Rate 71 70 70 Respiratory Rate Blood Pressure Blood Pressure [Right] O2 Sat by Pulse 99 99 98 Oximetry O2 Sat by Pulse Oximetry [ Bilateral] 06/27/21 06/27/21 06/27/21 23:28 23:33 23:38 Temperature Pulse Rate 67 67 65 Respiratory Rate Blood Pressure Blood Pressure [Right] O2 Sat by Pulse 99 100 100 Oximetry O2 Sat by Pulse Oximetry [ Bilateral] 06/27/21 06/27/21 06/27/21 23:43 23:47 23:48 Temperature Pulse Rate 70 86 86 Respiratory Rate Blood Pressure Blood Pressure [Right] O2 Sat by Pulse 100 89 100 Oximetry O2 Sat by Pulse Oximetry [ Bilateral] 06/27/21 06/27/21 06/27/21 23:53 23:58 23:59 Temperature 97.6 F Pulse Rate 69 67 Respiratory 17 Rate Blood Pressure Blood Pressure [Right] O2 Sat by Pulse 100 100 Oximetry O2 Sat by Pulse Oximetry [ Bilateral] 06/28/21 06/28/21 06/28/21 00:03 00:08 00:13 Temperature Pulse Rate 69 73 69 Respiratory Rate Blood Pressure Blood Pressure [Right] O2 Sat by Pulse 100 100 100 Oximetry O2 Sat by Pulse Oximetry [ Bilateral] 11/12/1306/28/21 06/28/21 00:18 00:23 00:28 Temperature Pulse Rate 75 75 68 Respiratory Rate Blood Pressure Blood Pressure [Right] O2 Sat by Pulse 100 100 99 Oximetry O2 Sat by Pulse Oximetry [ Bilateral] 06/28/21 06/28/21 06/28/21 00:33 00:38 00:43 Temperature Pulse Rate 67 69 71 Respiratory Rate Blood Pressure Blood Pressure [Right] O2 Sat by Pulse 99 99 100 Oximetry O2 Sat by Pulse Oximetry [ Bilateral] 06/28/21 06/28/21 06/28/21 00:48 00:53 00:58 Temperature Pulse Rate 76 69 74 Respiratory Rate Blood Pressure Blood Pressure [Right] O2 Sat by Pulse 99 99 99 Oximetry O2 Sat by Pulse Oximetry [ Bilateral] 06/28/21 06/28/21 06/28/21 01:03 01:08 01:13 Temperature Pulse Rate 71 73 72 Respiratory Rate Blood Pressure Blood Pressure [Right] O2 Sat by Pulse 99 99 99 Oximetry O2 Sat by Pulse Oximetry [ Bilateral] 06/28/21 06/28/21 06/28/21 01:18 01:23 01:28 Temperature Pulse Rate 71 77 75 Respiratory Rate Blood Pressure Blood Pressure [Right] O2 Sat by Pulse 100 99 99 Oximetry O2 Sat by Pulse Oximetry [ Bilateral] 06/28/21 06/28/21 06/28/21 01:33 01:38 01:43 Temperature Pulse Rate 79 75 75 Respiratory Rate Blood Pressure Blood Pressure [Right] O2 Sat by Pulse 99 99 100 Oximetry O2 Sat by Pulse Oximetry [ Bilateral] 06/28/21 06/28/21 06/28/21 01:48 01:53 01:58 Temperature Pulse Rate 92 H 78 73 Respiratory Rate Blood Pressure Blood Pressure [Right] O2 Sat by Pulse 100 100 99 Oximetry O2 Sat by Pulse Oximetry [ Bilateral] 06/28/21 06/28/21 06/28/21 02:03 02:08 02:13 Temperature Pulse Rate 72 75 74 Respiratory Rate Blood Pressure Blood Pressure [Right] O2 Sat by Pulse 100 100 100 Oximetry O2 Sat by Pulse Oximetry [ Bilateral] 06/28/21 06/28/21 06/28/21 02:18 02:23 02:28 Temperature Pulse Rate 74 74 76 Respiratory Rate Blood Pressure Blood Pressure [Right] O2 Sat by Pulse 100 100 100 Oximetry O2 Sat by Pulse Oximetry [ Bilateral] 06/28/21 06/28/21 06/28/21 02:33 02:38 02:43 Temperature Pulse Rate 75 72 74 Respiratory Rate Blood Pressure Blood Pressure [Right] O2 Sat by Pulse 100 100 100 Oximetry O2 Sat by Pulse Oximetry [ Bilateral] 06/28/21 06/28/21 06/28/21 02:48 02:53 02:58 Temperature Pulse Rate 71 69 72 Respiratory Rate Blood Pressure Blood Pressure [Right] O2 Sat by Pulse 100 100 100 Oximetry O2 Sat by Pulse Oximetry [ Bilateral] 06/28/21 06/28/21 06/28/21 03:03 03:08 03:13 Temperature Pulse Rate 73 71 73 Respiratory Rate Blood Pressure Blood Pressure [Right] O2 Sat by Pulse 100 100 99 Oximetry O2 Sat by Pulse Oximetry [ Bilateral] 06/28/21 06/28/21 06/28/21 03:18 03:23 03:28 Temperature Pulse Rate 71 76 82 Respiratory Rate Blood Pressure Blood Pressure [Right] O2 Sat by Pulse 100 100 100 Oximetry O2 Sat by Pulse Oximetry [ Bilateral] 06/28/21 06/28/21 06/28/21 03:33 03:37 03:38 Temperature Pulse Rate 73 95 H 83 Respiratory Rate Blood Pressure Blood Pressure [Right] O2 Sat by Pulse 100 90 100 Oximetry O2 Sat by Pulse Oximetry [ Bilateral] 06/28/21 06/28/21 06/28/21 03:43 03:48 03:53 Temperature Pulse Rate 73 73 70 Respiratory Rate Blood Pressure Blood Pressure [Right] O2 Sat by Pulse 99 99 100 Oximetry O2 Sat by Pulse Oximetry [ Bilateral] 06/28/21 06/28/21 06/28/21 03:58 04:03 04:08 Temperature Pulse Rate 69 89 71 Respiratory Rate Blood Pressure Blood Pressure [Right] O2 Sat by Pulse 100 100 99 Oximetry O2 Sat by Pulse Oximetry [ Bilateral] 06/28/21 06/28/21 06/28/21 04:13 04:18 04:23 Temperature Pulse Rate 70 68 68 Respiratory Rate Blood Pressure Blood Pressure [Right] O2 Sat by Pulse 100 100 100 Oximetry O2 Sat by Pulse Oximetry [ Bilateral] 06/28/21 06/28/21 06/28/21 04:28 04:33 04:38 Temperature Pulse Rate 76 69 73 Respiratory Rate Blood Pressure Blood Pressure [Right] O2 Sat by Pulse 100 100 100 Oximetry O2 Sat by Pulse Oximetry [ Bilateral] 06/28/21 06/28/21 06/28/21 04:43 04:48 04:53 Temperature Pulse Rate 89 71 69 Respiratory Rate Blood Pressure Blood Pressure [Right] O2 Sat by Pulse 100 100 100 Oximetry O2 Sat by Pulse Oximetry [ Bilateral] 06/28/21 06/28/21 06/28/21 04:58 05:03 05:08 Temperature Pulse Rate 73 80 72 Respiratory Rate Blood Pressure Blood Pressure [Right] O2 Sat by Pulse 100 100 100 Oximetry O2 Sat by Pulse Oximetry [ Bilateral] 06/28/21 06/28/21 06/28/21 05:13 05:18 05:23 Temperature Pulse Rate 73 74 71 Respiratory Rate Blood Pressure Blood Pressure [Right] O2 Sat by Pulse 100 100 100 Oximetry O2 Sat by Pulse Oximetry [ Bilateral] 06/28/21 06/28/21 06/28/21 05:28 05:33 05:38 Temperature Pulse Rate 77 75 75 Respiratory Rate Blood Pressure Blood Pressure [Right] O2 Sat by Pulse 100 100 100 Oximetry O2 Sat by Pulse Oximetry [ Bilateral] 06/28/21 06/28/21 06/28/21 05:43 05:45 05:48 Temperature 98.0 F Pulse Rate 75 74 Respiratory Rate Blood Pressure Blood Pressure [Right] O2 Sat by Pulse 100 100 Oximetry O2 Sat by Pulse Oximetry [ Bilateral] 06/28/21 06/28/21 06/28/21 05:53 05:58 06:01 Temperature Pulse Rate 81 94 H 75 Respiratory Rate Blood Pressure 108/70 Blood Pressure [Right] O2 Sat by Pulse 100 99 Oximetry O2 Sat by Pulse Oximetry [ Bilateral] 06/28/21 06/28/21 06/28/21 06:03 06:08 06:13 Temperature Pulse Rate 76 74 81 Respiratory Rate Blood Pressure Blood Pressure [Right] O2 Sat by Pulse 99 99 98 Oximetry O2 Sat by Pulse Oximetry [ Bilateral] 06/28/21 06/28/21 06/28/21 06:18 06:23 06:28 Temperature Pulse Rate 73 74 74 Respiratory Rate Blood Pressure Blood Pressure [Right] O2 Sat by Pulse 99 99 99 Oximetry O2 Sat by Pulse Oximetry [ Bilateral] 06/28/21 06/28/21 06/28/21 06:33 06:38 06:43 Temperature Pulse Rate 74 77 79 Respiratory Rate Blood Pressure Blood Pressure [Right] O2 Sat by Pulse 99 99 99 Oximetry O2 Sat by Pulse Oximetry [ Bilateral] 06/28/21 06/28/21 06/28/21 06:48 06:53 06:58 Temperature Pulse Rate 77 73 91 H Respiratory Rate Blood Pressure Blood Pressure [Right] O2 Sat by Pulse 98 99 99 Oximetry O2 Sat by Pulse Oximetry [ Bilateral] 06/28/21 06/28/21 06/28/21 07:03 07:08 07:13 Temperature Pulse Rate 75 85 74 Respiratory Rate Blood Pressure Blood Pressure [Right] O2 Sat by Pulse 99 99 99 Oximetry O2 Sat by Pulse Oximetry [ Bilateral] 06/28/21 06/28/21 06/28/21 07:18 07:23 07:28 Temperature Pulse Rate 77 79 90 Respiratory Rate Blood Pressure Blood Pressure [Right] O2 Sat by Pulse 99 99 99 Oximetry O2 Sat by Pulse Oximetry [ Bilateral] 06/28/21 06/28/21 06/28/21 07:33 07:38 07:43 Temperature Pulse Rate 81 72 81 Respiratory Rate Blood Pressure Blood Pressure [Right] O2 Sat by Pulse 100 98 98 Oximetry O2 Sat by Pulse Oximetry [ Bilateral] 06/28/21 06/28/21 06/28/21 07:48 07:53 07:58 Temperature Pulse Rate 75 76 75 Respiratory Rate Blood Pressure Blood Pressure [Right] O2 Sat by Pulse 98 98 99 Oximetry O2 Sat by Pulse Oximetry [ Bilateral] 06/28/21 06/28/21 06/28/21 08:03 08:08 08:09 Temperature 97.8 F Pulse Rate 85 87 80 Respiratory 16 Rate Blood Pressure 100/64 Blood Pressure 100/64 [Right] O2 Sat by Pulse 100 100 99 Oximetry O2 Sat by Pulse Oximetry [ Bilateral] 06/28/21 06/28/21 06/28/21 08:10 08:13 08:18 Temperature Pulse Rate 78 82 Respiratory Rate Blood Pressure Blood Pressure [Right] O2 Sat by Pulse 100 100 Oximetry O2 Sat by Pulse 99 Oximetry [ Bilateral] 06/28/21 06/28/21 06/28/21 08:23 08:28 08:33 Temperature Pulse Rate 78 79 82 Respiratory Rate Blood Pressure Blood Pressure [Right] O2 Sat by Pulse 100 99 98 Oximetry O2 Sat by Pulse Oximetry [ Bilateral] 06/28/21 06/28/21 06/28/21 08:38 08:43 08:48 Temperature Pulse Rate 79 79 83 Respiratory Rate Blood Pressure Blood Pressure [Right] O2 Sat by Pulse 96 97 98 Oximetry O2 Sat by Pulse Oximetry [ Bilateral] 06/28/21 06/28/21 06/28/21 08:53 08:58 09:03 Temperature Pulse Rate 83 78 76 Respiratory Rate Blood Pressure Blood Pressure [Right] O2 Sat by Pulse 98 98 97 Oximetry O2 Sat by Pulse Oximetry [ Bilateral] 06/28/21 06/28/21 06/28/21 09:08 09:13 09:18 Temperature Pulse Rate 81 84 91 H Respiratory Rate Blood Pressure Blood Pressure [Right] O2 Sat by Pulse 98 97 99 Oximetry O2 Sat by Pulse Oximetry [ Bilateral] 06/28/21 06/28/21 06/28/21 09:23 09:28 09:33 Temperature Pulse Rate 97 H 82 81 Respiratory Rate Blood Pressure Blood Pressure [Right] O2 Sat by Pulse 97 97 98 Oximetry O2 Sat by Pulse Oximetry [ Bilateral] 06/28/21 06/28/21 06/28/21 09:38 09:43 09:48 Temperature Pulse Rate 83 87 90 Respiratory Rate Blood Pressure Blood Pressure [Right] O2 Sat by Pulse 98 98 98 Oximetry O2 Sat by Pulse Oximetry [ Bilateral] 06/28/21 06/28/21 06/28/21 09:53 09:58 10:03 Temperature Pulse Rate 106 H 89 100 H Respiratory Rate Blood Pressure Blood Pressure [Right] O2 Sat by Pulse 99 99 100 Oximetry O2 Sat by Pulse Oximetry [ Bilateral] 06/28/21 06/28/21 10:08 10:13 Temperature Pulse Rate 83 99 H Respiratory Rate Blood Pressure Blood Pressure [Right] O2 Sat by Pulse 99 98 Oximetry O2 Sat by Pulse Oximetry [ Bilateral] - Labs Labs: Abnormal Labs 06/23/21 06/23/21 06/23/21 11:05 11:05 12:40 MCV 78 L MCH 25 L RDW 22.9 H Seg Neutrophils % 76.5 H Sodium 136 L Carbon Dioxide 18 L Creatinine 0.3 L Albumin 3.3 L Membranes Rupture Positive A Laboratory Results - last 24 hr 06/28/21 06/28/21 07:20 07:20 Glucose 2 Hr Postprand Glucose Tolerance
[2021-06-28] MEDS: AZITHROMYCIN 250 MG TAB PO SCH (11:55)
[2021-06-28 14:23] LABS: Basophils % (Auto) 0.4 % (0.0-1.8); Eosinophils # (Auto) 0.1 K/mm3 (0.0-0.4); Eosinophils % (Auto) 1.2 % (0.0-4.3); Hematocrit 35.5 % (30.3-42.9); Hemoglobin 11.3 gm/dl (10.1-14.3); Lymphocytes # (Auto) 1.5 K/mm3 (1.2-5.4); Lymphocytes % (Auto) 17.6 % (13.4-35.0); Mean Corpuscular HGB Conc 32 % (30-34); Mean Corpuscular Volume 79 fl (79-97); Monocytes # (Auto) 0.7 K/mm3 (0.0-0.8); Platelet Count 164 K/mm3 (140-440); Red Blood Count 4.49 M/mm3 (3.65-5.03)
[2021-06-28 14:50] LABS: Red Cell Distribution Width 23.3 % (13.2-15.2)
--- NOTE | 2021-06-28 17:17 | Ultrasound Report ---
ULTRASOUND OBSTETRIC LIMITED ULTRASOUND BIOPHYSICAL PROFILE INDICATION / CLINICAL INFORMATION: BPP/BRIAN. well-being. Clinical Gestational Age (GA): 32.6 weeks.days COMPARISON: None available. FINDINGS: BREATHING MOVEMENT = 2 GROSS BODY MOVEMENT = 2 TONE = 2 QUALITATIVE AMNIOTIC FLUID VOLUME = 2 TOTAL BIOPHYSICAL SCORE = 8/8 HEART RATE (beats per minute): 130 through 149 AMNIOTIC FLUID INDEX (cm) = 9.6 (normal = 7-24 cm) PRESENTATION: Breech. ADDITIONAL FINDINGS: None. IMPRESSION: 1. Biophysical Score = 8/8 2. BRIAN 9.6 cm. Signer Name: Dev Boston MD Signed: 06/28/2021 5:11 PM Workstation Name: [id number]
[2021-06-29] MEDS: LACTATED RINGERS 1,000 ML IV SCH ×3 (03:04→18:03)
[2021-06-29] MEDS: AMPICILLIN 500 MG CAP PO SCH ×4 (06:10→18:03)
[2021-06-29] MEDS: AZITHROMYCIN 250 MG TAB PO SCH (10:41)
[2021-06-29] MEDS: NITROFURANTOIN MONOHYD/M-CRYST 100 MG CAP PO SCH ×3 (10:41→23:27)
[2021-06-29] MEDS: PRENATAL VIT27-FE FUMARATE-FOLIC ACID VIT TAB PO SCH (10:41)
--- NOTE | 2021-06-29 10:58 | Progress Note ---
Assessment and Plan - Patient Problems (1) premature rupture of membranes (PPROM) with unknown onset of labor Current Visit: No Status: Acute Plan to address problem: For admission until delivery --s/p steriods --Continue latency abx, D --APA consulting --For repeat c/s if indication for delivery or at 34 weeks (2) GDM (gestational diabetes mellitus) Current Visit: Yes Status: Acute Plan to address problem: -Diet controlled. Continue to monitor Subjective - Subjective Date of service: 06/29/21 Principal diagnosis: HD#7, IUP at 33.0 wks, PPROM; Interval history: Patient reports that she is feeling well still with mild persistent of leakage of fluid. Denies vaginal bleeding. Active fetus. Understands indication for admission. Objective - Vital Signs Vital Signs: Vital Signs - 12hr 06/28/21 06/28/21 06/28/21 23:01 23:06 23:11 Temperature Pulse Rate 74 80 74 O2 Sat by Pulse 97 96 100 Oximetry 06/28/21 06/28/21 06/28/21 23:16 23:21 23:26 Temperature Pulse Rate 75 77 79 O2 Sat by Pulse 97 97 97 Oximetry 06/28/21 06/28/21 06/28/21 23:31 23:36 23:41 Temperature Pulse Rate 76 73 67 O2 Sat by Pulse 99 98 100 Oximetry 06/28/21 06/28/21 06/28/21 23:46 23:51 23:53 Temperature Pulse Rate 81 101 H 86 O2 Sat by Pulse 100 99 92 Oximetry 06/28/21 06/28/21 06/29/21 23:56 23:57 00:01 Temperature 98.1 F Pulse Rate 70 78 O2 Sat by Pulse 100 99 Oximetry 06/29/21 06/29/21 06/29/21 00:06 00:11 00:16 Temperature Pulse Rate 71 70 72 O2 Sat by Pulse 99 98 99 Oximetry 06/29/21 06/29/21 06/29/21 00:21 00:26 00:31 Temperature Pulse Rate 73 76 73 O2 Sat by Pulse 98 99 99 Oximetry 06/29/21 06/29/21 06/29/21 00:36 00:41 00:46 Temperature Pulse Rate 82 75 68 O2 Sat by Pulse 98 96 99 Oximetry 06/29/21 06/29/2121 00:51 00:56 01:01 Temperature Pulse Rate 73 69 75 O2 Sat by Pulse 98 98 98 Oximetry 06/29/21 06/29/21 06/29/21 01:06 01:11 01:16 Temperature Pulse Rate 73 76 71 O2 Sat by Pulse 98 99 99 Oximetry 06/29/21 06/29/21 06/29/21 01:21 01:26 01:31 Temperature Pulse Rate 78 75 92 H O2 Sat by Pulse 97 98 100 Oximetry 06/29/21 06/29/21 06/29/21 01:36 01:41 01:46 Temperature Pulse Rate 70 66 68 O2 Sat by Pulse 98 99 98 Oximetry 06/29/21 06/29/21 06/29/21 01:51 01:56 02:01 Temperature Pulse Rate 73 74 76 O2 Sat by Pulse 98 99 99 Oximetry 06/29/21 06/29/21 06/29/21 02:06 02:11 02:16 Temperature Pulse Rate 75 86 70 O2 Sat by Pulse 98 99 99 Oximetry 06/29/21 06/29/21 06/29/21 02:21 02:26 02:31 Temperature Pulse Rate 69 67 71 O2 Sat by Pulse 98 99 100 Oximetry 06/29/21 06/29/21 06/29/21 02:36 02:41 02:46 Temperature Pulse Rate 72 68 66 O2 Sat by Pulse 99 98 99 Oximetry 06/29/21 06/29/21 06/29/21 02:51 02:56 03:01 Temperature Pulse Rate 76 68 76 O2 Sat by Pulse 98 98 99 Oximetry 06/29/21 06/29/21 06/29/21 03:06 03:11 03:16 Temperature Pulse Rate 89 94 H 75 O2 Sat by Pulse 97 97 99 Oximetry 06/29/21 06/29/21 06/29/21 03:21 03:26 03:31 Temperature Pulse Rate 70 67 65 O2 Sat by Pulse 98 98 99 Oximetry 06/29/21 06/29/21 06/29/21 03:36 03:41 03:46 Temperature Pulse Rate 72 70 69 O2 Sat by Pulse 99 99 99 Oximetry 06/29/21 06/29/21 06/29/21 03:51 03:56 04:01 Temperature Pulse Rate 75 69 78 O2 Sat by Pulse 98 99 99 Oximetry 06/29/21 06/29/21 06/29/21 04:06 04:11 04:16 Temperature Pulse Rate 70 73 78 O2 Sat by Pulse 99 99 99 Oximetry 06/29/21 06/29/21 06/29/21 04:21 04:26 04:31 Temperature Pulse Rate 69 66 75 O2 Sat by Pulse 98 99 99 Oximetry 06/29/21 06/29/21 06/29/21 04:36 04:41 04:46 Temperature Pulse Rate 81 73 84 O2 Sat by Pulse 97 99 98 Oximetry 06/29/21 06/29/21 06/29/21 04:51 04:56 05:01 Temperature Pulse Rate 76 78 74 O2 Sat by Pulse 98 97 97 Oximetry 06/29/21 06/29/21 06/29/21 05:06 05:11 05:16 Temperature Pulse Rate 81 73 73 O2 Sat by Pulse 98 98 98 Oximetry 06/29/21 06/29/21 06/29/21 05:21 05:26 05:31 Temperature Pulse Rate 82 80 76 O2 Sat by Pulse 98 98 99 Oximetry 06/29/21 06/29/21 06/29/21 05:36 05:41 05:46 Temperature Pulse Rate 85 74 77 O2 Sat by Pulse 100 97 99 Oximetry 06/29/21 06/29/21 06/29/21 05:51 05:56 06:01 Temperature Pulse Rate 71 76 83 O2 Sat by Pulse 99 98 98 Oximetry 06/29/21 06/29/21 06/29/21 06:06 06:11 06:16 Temperature Pulse Rate 77 82 95 H O2 Sat by Pulse 100 99 99 Oximetry 06/29/21 06/29/21 06/29/21 06:21 06:26 06:31 Temperature Pulse Rate 75 78 69 O2 Sat by Pulse 100 97 98 Oximetry 06/29/21 06/29/21 06/29/21 06:36 06:41 06:46 Temperature Pulse Rate 69 76 76 O2 Sat by Pulse 98 98 98 Oximetry 06/29/21 06/29/21 06/29/21 06:51 06:56 07:01 Temperature Pulse Rate 71 78 80 O2 Sat by Pulse 98 98 98 Oximetry 06/29/21 06/29/21 06/29/21 07:06 07:11 07:16 Temperature Pulse Rate 81 71 78 O2 Sat by Pulse 98 97 97 Oximetry 06/29/21 06/29/21 06/29/21 07:21 07:26 07:31 Temperature Pulse Rate 79 72 78 O2 Sat by Pulse 99 98 99 Oximetry 06/29/21 06/29/21 06/29/21 07:36 07:41 07:46 Temperature Pulse Rate 77 73 93 H O2 Sat by Pulse 98 98 99 Oximetry 06/29/21 06/29/21 06/29/21 07:51 07:56 08:01 Temperature Pulse Rate 76 78 76 O2 Sat by Pulse 97 97 98 Oximetry 06/29/21 06/29/21 06/29/21 08:06 08:11 08:16 Temperature Pulse Rate 81 81 80 O2 Sat by Pulse 97 98 98 Oximetry 06/29/21 06/29/21 06/29/21 08:21 08:26 08:31 Temperature Pulse Rate 80 73 74 O2 Sat by Pulse 99 98 99 Oximetry 06/29/21 06/29/21 06/29/21 08:36 08:41 08:46 Temperature Pulse Rate 77 76 74 O2 Sat by Pulse 98 98 100 Oximetry 06/29/21 06/29/21 06/29/21 08:51 08:56 09:01 Temperature Pulse Rate 84 75 78 O2 Sat by Pulse 99 99 97 Oximetry 06/29/21 06/29/21 06/29/21 09:06 09:11 09:16 Temperature Pulse Rate 102 H 102 H 100 H O2 Sat by Pulse 100 100 100 Oximetry 06/29/21 06/29/21 06/29/21 09:21 09:26 09:31 Temperature Pulse Rate 83 96 H 95 H O2 Sat by Pulse 98 99 97 Oximetry 06/29/21 06/29/21 06/29/21 09:36 09:41 09:46 Temperature Pulse Rate 88 93 H 84 O2 Sat by Pulse 99 98 98 Oximetry 06/29/21 06/29/21 06/29/21 09:51 09:56 10:01 Temperature Pulse Rate 100 H 87 105 H O2 Sat by Pulse 98 98 99 Oximetry 06/29/21 06/29/21 06/29/21 10:06 10:11 10:16 Temperature Pulse Rate 85 93 H 79 O2 Sat by Pulse 98 99 100 Oximetry 06/29/21 06/29/21 06/29/21 10:21 10:26 10:31 Temperature Pulse Rate 96 H 95 H 88 O2 Sat by Pulse 99 98 99 Oximetry 06/29/21 06/29/21 06/29/21 10:36 10:41 10:47 Temperature Pulse Rate 95 H 86 108 H O2 Sat by Pulse 97 98 99 Oximetry 06/29/21 10:52 Temperature Pulse Rate 87 O2 Sat by Pulse 99 Oximetry - Exam Abdomen: Present: normal appearance Uterus: Present: normal FHR: category 1 Uterine Contraction Monitor Mode: External Uterine Contraction Pattern: Absent - Labs Labs: Abnormal Labs 06/23/21 06/23/21 06/23/21 11:05 11:05 12:40 MCV 78 L MCH 25 L RDW 22.9 H Mcd[place] % (Auto) Seg Neutrophils % 76.5 H Sodium 136 L Carbon Dioxide 18 L Creatinine 0.3 L Albumin 3.3 L Membranes Rupture Positive A 06/28/21 13:35 MCV MCH 25 L RDW 23.3 H [place] % (Auto) 8.0 H Seg Neutrophils % 72.8 H Sodium Carbon Dioxide Creatinine Albumin Membranes Rupture Laboratory Results - last 24 hr 06/28/21 06/28/21 06/28/21 13:35 13:35 13:40 WBC 8.4 RBC 4.49 Hgb 11.3 Hct 35.5 MCV 79 MCH 25 L MCHC 32 RDW 23.3 H Plt Count 164 Lymph % (Auto) 17.6 Mcdowell % (Auto) 8.0 H Eos % (Auto) 1.2 Baso % (Auto) 0.4 Lymph # (Auto) 1.5 Mcdowell # (Auto) 0.7 Eos # (Auto) 0.1 Baso # (Auto) 0.0 Seg Neutrophils % 72.8 H Seg Neutrophils # 6.1 C-Reactive Protein 0.40 Blood Type AB POSITIVE Antibody Screen Negative
--- NOTE | 2021-06-29 14:38 | Consultation ---
History of Present Illness Consult date: 06/29/21 Requesting physician: FRANSISCO HUTCHISON History of present illness: 36 YO EGA 32 6/7 wks by EDC 08/17/21 admited following SROM. At this time she denies any regular cramping, pressure, or bleeding. She reports periodic LOF. She also reports good activity. US EFW at 1850 grams 30% Doing well Denies Fever chills Pain ctx Last BRIAN at 9.6 BPP 8/8 Past History Past Medical History: no pertinent history Past Surgical History: section (x2) Family/Genetic History: none - Obstetrical History : 3 Medications and Allergies Allergies Allergy/AdvReac Type Severity Reaction Status Date / Time No Known Allergies Allergy Verified 12/18/19 23:42 Home Medications Medication Instructions Recorded Confirmed Last Taken Type Multivitamin Tablet 1 tab PO DAILY 06/28/21 06/28/21 06/28/21 History 1 Active Meds: Active Medications Acetaminophen (Acetaminophen 325 Mg Tab) 650 mg PO Q4H PRN PRN Reason: Pain, Mild (1-3) Last Admin: 06/27/21 18:54 Dose: 650 mg Documented by: Ampicillin (Ampicillin 500 Mg Cap) 500 mg PO Q6HR BRETT; Protocol Stop: 06/30/21 17:59 Last Admin: 06/29/21 14:08 Dose: 500 mg Documented by: Azithromycin (Azithromycin 250 Mg Tab) 500 mg PO QDAY BRETT; Protocol Stop: 06/30/21 17:59 Last Admin: 06/29/21 10:41 Dose: 500 mg Documented by: Carboprost Tromethamine (Carboprost Tromethamine 250 Mcg/1 Ml Inj) 250 mcg IM ONCE PRN PRN Reason: Uterine Bleeding Docusate Sodium (Docusate Sodium 100 Mg Cap) 100 mg PO BID PRN PRN Reason: Constipation Last Admin: 06/27/21 18:53 Dose: 100 mg Documented by: Ephedrine Sulfate (Ephedrine Sulfate 50 Mg/1 Ml Inj) 10 mg IV Q2M PRN PRN Reason: Hypotension Fentanyl (Fentanyl 100 Mcg/2 Ml Inj) 100 mcg IV Q2H PRN PRN Reason: Pain,Severe (7-10) LABOR PAIN Oxytocin/Sodium Chloride (Pitocin/Ns 30 Unit/500ml) 30 units in 500 mls @ 2 mls/hr IV TITR BRETT; Protocol Lactated Ringer's (Lactated Ringers) 1,000 mls @ 125 mls/hr IV DIRECT BRETT Last Admin: 06/29/21 10:40 Dose: 125 mls/hr Documented by: Oxytocin/Sodium Chloride (Pitocin/Ns 30 Unit/500ml) 30 units in 500 mls @ 40 mls/hr IV TITR BRETT; Protocol Loperamide HCl (Loperamide 2 Mg Cap) 2 mg PO ONCE PRN PRN Reason: give with Hemabate Methylergonovine Maleate (Methylergonovine Maleate 0.2 Mg/Ml Vial) 0.2 mg IM ONCE PRN PRN Reason: Uterine Bleeding Mineral Oil (Mineral Oil 30 Ml Oral Liqd) 30 ml PO QHS PRN PRN Reason: Constipation Misoprostol (Misoprostol 200 Mcg Tab) 800 mcg [place] ONCE PRN PRN Reason: Uterine Bleeding Multivitamins/Iron/Calcium ( [id number] Fumarate-Folic Acid Vit Tab) 1 each PO QDAY [facility] Last Admin: 06/29/21 10:41 Dose: 1 each Documented by: Nalbuphine HCl (Nalbuphine 10 Mg/1 Ml Inj) 10 mg IV Q2H PRN PRN Reason: Pain, Moderate (4-6) Nitrofurantoin Macrocrystals (Nitrofurantoin Monohyd/M-Cryst 100 Mg Cap) 100 mg PO Q12HR [facility] Stop: 06/30/21 14:32 Last Admin: 06/29/21 10:41 Dose: 100 mg Documented by: Ondansetron HCl (Ondansetron 4 Mg/2 Ml Inj) 4 mg IV Q8H PRN PRN Reason: Nausea And Vomiting Oxytocin (Oxytocin 10 Unit/1 Ml Inj) 10 unit IM ONCE PRN PRN Reason: Uterine Bleeding Promethazine HCl (Promethazine 25 Mg Tab) 25 mg PO Q6H PRN PRN Reason: Nausea And Vomiting Terbutaline Sulfate (Terbutaline 1 Mg/1 Ml Inj) 0.25 mg SUB-Q ONCE PRN PRN Reason: Hyperstimulation/Hypertonicity - Vital Signs Vital signs: Vital Signs Pulse Pulse Ox 84 98 06/23/21 10:08 06/23/21 10:08 Temp Pulse Resp BP Pulse Ox 98.1 F 88 15 97/56 99 06/28/21 23:57 06/29/21 14:32 06/28/21 17:03 06/28/21 17:03 06/29/21 14:32 Results Result Diagrams: 06/28/21 13:35 06/23/21 11:05 Abnormal lab results 06/28/21 Range/Units 13:35 MCH 25 L (28-32) pg RDW 23.3 H (13.2-15.2) % Will % (Auto) 8.0 H (0.0-7.3) % Seg Neutrophils % 72.8 H (40.0-70.0) % All other labs normal. Assessment and Plan IMPRESSIONS: 1. IUP 32 6/7 weeks 2. SROM with good residual BRIAN noted at 9.6 cm 3. Normal growth 4. Reassuring behavior 5. GDM - diet controlled 6. AMA - negative aneuploidy screen result reported 7. No sign of chorio, labor, or compromise 8. S/P BMX and Antibiotics RECOMMENDATIONS: 1. Continue current management 2. BPP twice weekly 3. Deliver for usual indications, or at 34 weeks 4. Monitor by fingerstick her FBS, 2-hr PP glucose values 5. Deliver by repeat 6. [facility] will follow periodically, or as requested
[2021-06-30] MEDS: AMPICILLIN 500 MG CAP PO SCH (06:10)
[2021-06-30] MEDS: LACTATED RINGERS 1,000 ML IV SCH ×3 (06:20→23:29)
--- NOTE | 2021-06-30 10:15 | Progress Note ---
Subjective - Subjective Date of service: 06/30/21 Principal diagnosis: HD#8, IUP at 33.1 wks, PPROM; Interval history: PPROM expectant management stable at bedside FHT documented 130, Category 1 cervix /-4( not in labor) SP steroids and abx FBS 80 Plan for today: family visit, up to chair continue biweekly BPP(06/28/21 BPP 8/8, presentation breech, BRIAN 9.6) delivery for acute /maternal indication or at 34 weeks maternal/ status reassuring at bedside Rox Borrero MD Objective - Vital Signs Vital Signs: Vital Signs - 12hr 06/29/21 06/29/21 06/29/21 22:17 22:22 22:27 Temperature Pulse Rate 83 89 83 Respiratory Rate Blood Pressure Blood Pressure [Right] O2 Sat by Pulse 97 97 98 Oximetry 06/29/21 06/29/21 06/29/21 22:32 22:37 22:43 Temperature Pulse Rate 86 86 86 Respiratory Rate Blood Pressure Blood Pressure [Right] O2 Sat by Pulse 98 97 98 Oximetry 06/29/21 06/29/21 06/29/21 22:47 22:52 22:57 Temperature Pulse Rate 102 H 85 89 Respiratory Rate Blood Pressure Blood Pressure [Right] O2 Sat by Pulse 98 97 100 Oximetry 06/29/21 06/29/21 06/29/21 23:02 23:08 23:12 Temperature Pulse Rate 94 H 106 H 84 Respiratory Rate Blood Pressure Blood Pressure [Right] O2 Sat by Pulse 99 100 99 Oximetry 06/29/21 06/29/21 06/29/21 23:17 23:22 23:28 Temperature Pulse Rate 86 82 81 Respiratory Rate Blood Pressure Blood Pressure [Right] O2 Sat by Pulse 98 98 100 Oximetry 06/29/21 06/29/21 06/29/21 23:33 23:37 23:42 Temperature Pulse Rate 83 82 84 Respiratory Rate Blood Pressure Blood Pressure [Right] O2 Sat by Pulse 100 100 98 Oximetry 06/29/21 06/29/21 06/29/21 23:47 23:53 23:58 Temperature Pulse Rate 87 80 88 Respiratory Rate Blood Pressure Blood Pressure [Right] O2 Sat by Pulse 99 100 98 Oximetry 06/30/21 06/30/21 06/30/21 00:02 00:07 00:12 Temperature Pulse Rate 87 90 81 Respiratory Rate Blood Pressure Blood Pressure [Right] O2 Sat by Pulse 99 100 98 Oximetry 06/30/21 06/30/21 06/30/21 00:17 00:22 00:27 Temperature Pulse Rate 92 H 83 83 Respiratory Rate Blood Pressure Blood Pressure [Right] O2 Sat by Pulse 99 100 100 Oximetry 06/30/21 06/30/21 06/30/21 00:32 00:37 00:42 Temperature Pulse Rate 94 H 82 78 Respiratory Rate Blood Pressure Blood Pressure [Right] O2 Sat by Pulse 98 98 98 Oximetry 06/30/21 06/30/21 06/30/21 00:48 00:52 00:58 Temperature Pulse Rate 84 74 83 Respiratory Rate Blood Pressure Blood Pressure [Right] O2 Sat by Pulse 98 97 97 Oximetry 06/30/21 06/30/21 06/30/21 01:02 01:07 01:12 Temperature Pulse Rate 79 89 98 H Respiratory Rate Blood Pressure Blood Pressure [Right] O2 Sat by Pulse 97 99 98 Oximetry 06/30/21 06/30/21 06/30/21 01:17 01:22 01:27 Temperature Pulse Rate 80 82 83 Respiratory Rate Blood Pressure Blood Pressure [Right] O2 Sat by Pulse 99 96 98 Oximetry 06/30/21 06/30/21 06/30/21 01:32 01:38 01:42 Temperature Pulse Rate 81 82 80 Respiratory Rate Blood Pressure Blood Pressure [Right] O2 Sat by Pulse 98 99 98 Oximetry 06/30/21 06/30/21 06/30/21 01:47 01:53 01:57 Temperature Pulse Rate 82 83 80 Respiratory Rate Blood Pressure Blood Pressure [Right] O2 Sat by Pulse 98 98 98 Oximetry 06/30/21 06/30/21 06/30/21 02:02 02:07 02:13 Temperature Pulse Rate 76 76 80 Respiratory Rate Blood Pressure Blood Pressure [Right] O2 Sat by Pulse 98 99 98 Oximetry 06/30/21 06/30/21 06/30/21 02:17 02:22 02:27 Temperature Pulse Rate 82 119 H 81 Respiratory Rate Blood Pressure Blood Pressure [Right] O2 Sat by Pulse 99 98 97 Oximetry 06/30/21 06/30/21 06/30/21 02:32 02:37 02:42 Temperature Pulse Rate 77 74 73 Respiratory Rate Blood Pressure Blood Pressure [Right] O2 Sat by Pulse 99 99 99 Oximetry 06/30/21 06/30/21 06/30/21 02:47 02:52 02:57 Temperature Pulse Rate 75 77 74 Respiratory Rate Blood Pressure Blood Pressure [Right] O2 Sat by Pulse 97 97 98 Oximetry 06/30/21 06/30/21 06/30/21 03:03 03:07 03:13 Temperature Pulse Rate 80 81 76 Respiratory Rate Blood Pressure Blood Pressure [Right] O2 Sat by Pulse 97 97 99 Oximetry 06/30/21 06/30/21 06/30/21 03:17 03:22 03:27 Temperature Pulse Rate 74 79 79 Respiratory Rate Blood Pressure Blood Pressure [Right] O2 Sat by Pulse 99 99 99 Oximetry 06/30/21 06/30/21 06/30/21 03:32 03:37 03:42 Temperature Pulse Rate 74 87 73 Respiratory Rate Blood Pressure Blood Pressure [Right] O2 Sat by Pulse 99 99 99 Oximetry 06/30/21 06/30/21 06/30/21 03:47 03:52 03:57 Temperature Pulse Rate 72 75 70 Respiratory Rate Blood Pressure Blood Pressure [Right] O2 Sat by Pulse 98 98 99 Oximetry 06/30/21 06/30/21 06/30/21 04:02 04:07 04:13 Temperature Pulse Rate 70 73 71 Respiratory Rate Blood Pressure Blood Pressure [Right] O2 Sat by Pulse 98 99 99 Oximetry 06/30/21 06/30/21 06/30/21 04:18 04:21 04:23 Temperature Pulse Rate 72 78 71 Respiratory Rate Blood Pressure Blood Pressure [Right] O2 Sat by Pulse 99 94 99 Oximetry 06/30/21 06/30/21 06/30/21 04:28 04:33 04:38 Temperature Pulse Rate 74 81 74 Respiratory Rate Blood Pressure Blood Pressure [Right] O2 Sat by Pulse 98 98 99 Oximetry 06/30/21 06/30/21 06/30/21 04:43 04:48 04:50 Temperature Pulse Rate 70 74 83 Respiratory Rate Blood Pressure Blood Pressure [Right] O2 Sat by Pulse 99 97 94 Oximetry 06/30/21 06/30/21 06/30/21 04:53 04:58 05:00 Temperature Pulse Rate 85 78 85 Respiratory Rate Blood Pressure Blood Pressure [Right] O2 Sat by Pulse 97 98 90 Oximetry 06/30/21 06/30/21 06/30/21 05:03 05:08 05:13 Temperature Pulse Rate 71 70 74 Respiratory Rate Blood Pressure Blood Pressure [Right] O2 Sat by Pulse 100 99 98 Oximetry 06/30/21 06/30/21 06/30/21 05:18 05:23 05:28 Temperature Pulse Rate 82 69 75 Respiratory Rate Blood Pressure Blood Pressure [Right] O2 Sat by Pulse 99 100 100 Oximetry 06/30/21 06/30/21 06/30/21 05:33 05:38 05:43 Temperature Pulse Rate 77 80 73 Respiratory Rate Blood Pressure Blood Pressure [Right] O2 Sat by Pulse 99 98 98 Oximetry 06/30/21 06/30/21 06/30/21 05:48 05:53 05:58 Temperature Pulse Rate 78 80 85 Respiratory Rate Blood Pressure Blood Pressure [Right] O2 Sat by Pulse 100 94 97 Oximetry 06/30/21 06/30/21 06/30/21 06:03 06:08 06:11 Temperature Pulse Rate 76 79 81 Respiratory Rate Blood Pressure 103/65 Blood Pressure [Right] O2 Sat by Pulse 97 98 Oximetry 06/30/21 06/30/21 06/30/21 06:12 06:13 06:18 Temperature 98.2 F Pulse Rate 87 86 83 Respiratory 18 Rate Blood Pressure Blood Pressure 103/65 [Right] O2 Sat by Pulse 99 99 99 Oximetry 06/30/21 06/30/21 06/30/21 06:23 06:28 06:33 Temperature Pulse Rate 81 82 89 Respiratory Rate Blood Pressure Blood Pressure [Right] O2 Sat by Pulse 98 100 100 Oximetry 06/30/21 06/30/21 06/30/21 06:38 06:43 06:48 Temperature Pulse Rate 91 H 81 77 Respiratory Rate Blood Pressure Blood Pressure [Right] O2 Sat by Pulse 99 100 98 Oximetry 06/30/21 06/30/21 06/30/21 06:53 06:58 07:03 Temperature Pulse Rate 83 96 H 76 Respiratory Rate Blood Pressure Blood Pressure [Right] O2 Sat by Pulse 100 99 100 Oximetry 06/30/21 06/30/21 06/30/21 07:08 07:13 07:18 Temperature Pulse Rate 72 73 72 Respiratory Rate Blood Pressure Blood Pressure [Right] O2 Sat by Pulse 98 98 100 Oximetry 06/30/21 06/30/21 06/30/21 07:23 07:28 07:32 Temperature Pulse Rate 77 75 112 H Respiratory Rate Blood Pressure Blood Pressure [Right] O2 Sat by Pulse 98 97 93 Oximetry 06/30/21 06/30/21 06/30/21 07:33 07:38 07:40 Temperature Pulse Rate 90 81 106 H Respiratory Rate Blood Pressure Blood Pressure [Right] O2 Sat by Pulse 100 98 92 Oximetry 06/30/21 06/30/21 06/30/21 07:43 07:48 07:53 Temperature Pulse Rate 78 80 79 Respiratory Rate Blood Pressure Blood Pressure [Right] O2 Sat by Pulse 99 98 97 Oximetry 06/30/21 06/30/21 06/30/21 07:58 08:03 08:08 Temperature Pulse Rate 85 75 75 Respiratory Rate Blood Pressure Blood Pressure [Right] O2 Sat by Pulse 99 99 100 Oximetry 06/30/21 06/30/21 06/30/21 08:13 08:18 08:23 Temperature Pulse Rate 81 82 79 Respiratory Rate Blood Pressure Blood Pressure [Right] O2 Sat by Pulse 100 99 100 Oximetry 06/30/21 06/30/21 06/30/21 08:28 08:33 08:38 Temperature Pulse Rate 83 76 81 Respiratory Rate Blood Pressure Blood Pressure [Right] O2 Sat by Pulse 99 97 97 Oximetry 06/30/21 06/30/21 06/30/21 08:43 08:48 08:52 Temperature Pulse Rate 77 78 78 Respiratory Rate Blood Pressure 101/59 Blood Pressure [Right] O2 Sat by Pulse 98 98 Oximetry 06/30/21 06/30/21 06/30/21 08:53 08:58 09:01 Temperature Pulse Rate 85 79 93 H Respiratory Rate Blood Pressure Blood Pressure [Right] O2 Sat by Pulse 99 100 94 Oximetry 06/30/21 06/30/21 06/30/21 09:03 09:08 09:13 Temperature Pulse Rate 88 99 H 100 H Respiratory Rate Blood Pressure Blood Pressure [Right] O2 Sat by Pulse 99 96 100 Oximetry 06/30/21 06/30/21 06/30/21 09:18 09:20 09:23 Temperature Pulse Rate 86 97 H 77 Respiratory Rate Blood Pressure Blood Pressure [Right] O2 Sat by Pulse 100 92 100 Oximetry 06/30/21 06/30/21 06/30/21 09:28 09:33 09:38 Temperature Pulse Rate 86 75 79 Respiratory Rate Blood Pressure Blood Pressure [Right] O2 Sat by Pulse 100 99 99 Oximetry 06/30/21 06/30/21 06/30/21 09:43 09:48 09:53 Temperature Pulse Rate 85 106 H 82 Respiratory Rate Blood Pressure Blood Pressure [Right] O2 Sat by Pulse 99 97 100 Oximetry 06/30/21 06/30/21 06/30/21 09:58 10:03 10:08 Temperature Pulse Rate 88 86 89 Respiratory Rate Blood Pressure Blood Pressure [Right] O2 Sat by Pulse 100 100 100 Oximetry 06/30/21 10:13 Temperature Pulse Rate 92 H Respiratory Rate Blood Pressure Blood Pressure [Right] O2 Sat by Pulse 99 Oximetry - Labs Labs: Abnormal Labs 06/23/21 06/23/21 06/23/21 11:05 11:05 12:40 MCV 78 L MCH 25 L RDW 22.9 H [place] % (Auto) Seg Neutrophils % 76.5 H Sodium 136 L Carbon Dioxide 18 L Creatinine 0.3 L Albumin 3.3 L Membranes Rupture Positive A 06/28/21 13:35 MCV MCH 25 L RDW 23.3 H [place] % (Auto) 8.0 H Seg Neutrophils % 72.8 H Sodium Carbon Dioxide Creatinine Albumin Membranes Rupture Laboratory Results - last 24 hr 06/29/21 15:39 POC Glucose 80
[2021-06-30] MEDS: NITROFURANTOIN MONOHYD/M-CRYST 100 MG CAP PO SCH (10:52)
[2021-06-30] MEDS: PRENATAL VIT27-FE FUMARATE-FOLIC ACID VIT TAB PO SCH (10:52)
[2021-07-01 01:27] LABS: Basophils % (Auto) 0.4 % (0.0-1.8); Eosinophils # (Auto) 0.1 K/mm3 (0.0-0.4); Eosinophils % (Auto) 1.5 % (0.0-4.3); Hemoglobin 11.3 gm/dl (10.1-14.3); Lymphocytes # (Auto) 1.5 K/mm3 (1.2-5.4); Lymphocytes % (Auto) 21.1 % (13.4-35.0); Mean Corpuscular HGB Conc 32 % (30-34); Mean Corpuscular Volume 79 fl (79-97); Monocytes # (Auto) 0.5 K/mm3 (0.0-0.8); Monocytes % (Auto) 6.7 % (0.0-7.3); Platelet Count 161 K/mm3 (140-440); Red Blood Count 4.46 M/mm3 (3.65-5.03)
[2021-07-01 01:33] LABS: Red Cell Distribution Width 23.4 % (13.2-15.2)
[2021-07-01] MEDS: LACTATED RINGERS 1,000 ML IV SCH ×2 (06:05→13:40)
--- NOTE | 2021-07-01 06:59 | Progress Note ---
Subjective - Subjective Date of service: 07/01/21 Principal diagnosis: HD#9, IUP at 33.2 wks, PPROM; Interval history: PPROM expectant management stable at bedside FHT documented 130, Category 1 cervix 40/-4( not in labor) SP steroids and abx FBS 80 labs stable, so s/s chorioamnionitis Plan for today: family visit, up to chair continue biweekly BPP(06/28/21 BPP 8/8, presentation breech, BRIAN 9.6) delivery for acute /maternal indication or at 34 weeks maternal/ status reassuring at bedside Rox Borrero MD Objective - Vital Signs Vital Signs: Vital Signs - 12hr 06/30/21 06/30/21 06/30/21 20:00 20:05 20:10 Temperature Pulse Rate 95 H 80 78 Respiratory Rate Blood Pressure Blood Pressure [Right] O2 Sat by Pulse 100 99 100 Oximetry O2 Sat by Pulse Oximetry [ Bilateral] 06/30/21 06/30/21 06/30/21 20:15 20:20 20:25 Temperature Pulse Rate 76 89 78 Respiratory Rate Blood Pressure Blood Pressure [Right] O2 Sat by Pulse 100 100 100 Oximetry O2 Sat by Pulse Oximetry [ Bilateral] 06/30/21 06/30/21 06/30/21 20:28 20:29 20:30 Temperature 98.1 F Pulse Rate 79 82 76 Respiratory 18 Rate Blood Pressure 101/63 Blood Pressure 101/63 [Right] O2 Sat by Pulse 99 100 Oximetry O2 Sat by Pulse 99 Oximetry [ Bilateral] 06/30/21 06/30/21 06/30/21 20:35 20:40 20:45 Temperature Pulse Rate 80 81 81 Respiratory Rate Blood Pressure Blood Pressure [Right] O2 Sat by Pulse 100 99 98 Oximetry O2 Sat by Pulse Oximetry [ Bilateral] 06/30/21 06/30/21 06/30/21 20:52 20:57 21:02 Temperature Pulse Rate 86 82 75 Respiratory Rate Blood Pressure Blood Pressure [Right] O2 Sat by Pulse 99 98 98 Oximetry O2 Sat by Pulse Oximetry [ Bilateral] 06/30/21 06/30/21 06/30/21 21:07 21:12 21:17 Temperature Pulse Rate 76 85 93 H Respiratory Rate Blood Pressure Blood Pressure [Right] O2 Sat by Pulse 99 99 100 Oximetry O2 Sat by Pulse Oximetry [ Bilateral] 06/30/21 06/30/21 06/30/21 21:22 21:27 21:32 Temperature Pulse Rate 90 78 75 Respiratory Rate Blood Pressure Blood Pressure [Right] O2 Sat by Pulse 99 100 99 Oximetry O2 Sat by Pulse Oximetry [ Bilateral] 06/30/21 06/30/21 06/30/21 21:37 21:42 21:47 Temperature Pulse Rate 73 73 71 Respiratory Rate Blood Pressure Blood Pressure [Right] O2 Sat by Pulse 99 97 97 Oximetry O2 Sat by Pulse Oximetry [ Bilateral] 06/30/21 06/30/21 06/30/21 21:52 21:57 22:02 Temperature Pulse Rate 75 86 82 Respiratory Rate Blood Pressure Blood Pressure [Right] O2 Sat by Pulse 97 97 99 Oximetry O2 Sat by Pulse Oximetry [ Bilateral] 06/30/21 06/30/21 06/30/21 22:07 22:12 22:17 Temperature Pulse Rate 80 74 74 Respiratory Rate Blood Pressure Blood Pressure [Right] O2 Sat by Pulse 99 98 97 Oximetry O2 Sat by Pulse Oximetry [ Bilateral] 06/30/21 06/30/21 06/30/21 22:22 22:27 22:32 Temperature Pulse Rate 74 76 75 Respiratory Rate Blood Pressure Blood Pressure [Right] O2 Sat by Pulse 96 97 97 Oximetry O2 Sat by Pulse Oximetry [ Bilateral] 06/30/21 06/30/21 06/30/21 22:37 22:42 22:47 Temperature Pulse Rate 75 74 87 Respiratory Rate Blood Pressure Blood Pressure [Right] O2 Sat by Pulse 98 98 98 Oximetry O2 Sat by Pulse Oximetry [ Bilateral] 06/30/21 06/30/21 06/30/21 22:52 22:57 23:02 Temperature Pulse Rate 77 82 97 H Respiratory Rate Blood Pressure Blood Pressure [Right] O2 Sat by Pulse 99 99 94 Oximetry O2 Sat by Pulse Oximetry [ Bilateral] 06/30/21 06/30/21 06/30/21 23:07 23:12 23:17 Temperature Pulse Rate 77 85 75 Respiratory Rate Blood Pressure Blood Pressure [Right] O2 Sat by Pulse 98 100 97 Oximetry O2 Sat by Pulse Oximetry [ Bilateral] 06/30/21 06/30/21 06/30/21 23:22 23:27 23:32 Temperature 98.2 F Pulse Rate 77 75 74 Respiratory 16 Rate Blood Pressure 90/50 Blood Pressure 90/50 [Right] O2 Sat by Pulse 99 98 99 Oximetry O2 Sat by Pulse Oximetry [ Bilateral] 06/30/21 06/30/21 06/30/21 23:37 23:42 23:47 Temperature Pulse Rate 76 79 77 Respiratory Rate Blood Pressure Blood Pressure [Right] O2 Sat by Pulse 98 98 99 Oximetry O2 Sat by Pulse Oximetry [ Bilateral] 06/30/21 06/30/21 07/01/21 23:52 23:57 00:02 Temperature Pulse Rate 79 75 72 Respiratory Rate Blood Pressure Blood Pressure [Right] O2 Sat by Pulse 97 99 98 Oximetry O2 Sat by Pulse Oximetry [ Bilateral] 07/01/21 07/01/21 07/01/21 00:07 00:12 00:17 Temperature Pulse Rate 69 78 79 Respiratory Rate Blood Pressure Blood Pressure [Right] O2 Sat by Pulse 99 99 99 Oximetry O2 Sat by Pulse Oximetry [ Bilateral] 07/01/21 07/01/21 07/01/21 00:22 00:27 00:32 Temperature Pulse Rate 78 76 76 Respiratory Rate Blood Pressure Blood Pressure [Right] O2 Sat by Pulse 99 99 99 Oximetry O2 Sat by Pulse Oximetry [ Bilateral] 07/01/21 07/01/21 07/01/21 00:37 00:42 00:47 Temperature Pulse Rate 78 72 72 Respiratory Rate Blood Pressure Blood Pressure [Right] O2 Sat by Pulse 100 98 97 Oximetry O2 Sat by Pulse Oximetry [ Bilateral] 07/01/21 07/01/21 07/01/21 00:52 00:57 01:02 EST Temperature Pulse Rate 78 76 80 Respiratory Rate Blood Pressure Blood Pressure [Right] O2 Sat by Pulse 98 98 99 Oximetry O2 Sat by Pulse Oximetry [ Bilateral] 07/01/21 07/01/21 07/01/21 01:07 EST 01:12 EST 01:17 EST Temperature Pulse Rate 84 85 81 Respiratory Rate Blood Pressure Blood Pressure [Right] O2 Sat by Pulse 99 98 98 Oximetry O2 Sat by Pulse Oximetry [ Bilateral] 07/01/21 07/01/21 07/01/21 01:22 EST 01:24 EST 01:27 EST Temperature Pulse Rate 79 89 74 Respiratory Rate Blood Pressure Blood Pressure [Right] O2 Sat by Pulse 99 94 97 Oximetry O2 Sat by Pulse Oximetry [ Bilateral] 1107/01/21 07/01/21 01:32 EST 01:37 EST 01:42 EST Temperature Pulse Rate 81 78 79 Respiratory Rate Blood Pressure Blood Pressure [Right] O2 Sat by Pulse 97 97 97 Oximetry O2 Sat by Pulse Oximetry [ Bilateral] 07/01/21 07/01/21 07/01/21 01:47 EST 01:52 EST 01:57 EST Temperature Pulse Rate 83 82 76 Respiratory Rate Blood Pressure Blood Pressure [Right] O2 Sat by Pulse 98 98 99 Oximetry O2 Sat by Pulse Oximetry [ Bilateral] 07/01/21 07/01/21 07/01/21 02:02 02:07 02:12 Temperature Pulse Rate 78 75 79 Respiratory Rate Blood Pressure Blood Pressure [Right] O2 Sat by Pulse 97 95 96 Oximetry O2 Sat by Pulse Oximetry [ Bilateral] 07/01/21 07/01/21 07/01/21 02:17 02:22 02:27 Temperature Pulse Rate 85 75 86 Respiratory Rate Blood Pressure Blood Pressure [Right] O2 Sat by Pulse 97 96 96 Oximetry O2 Sat by Pulse Oximetry [ Bilateral] 07/01/21 07/01/21 07/01/21 02:32 02:37 02:42 Temperature Pulse Rate 90 81 77 Respiratory Rate Blood Pressure Blood Pressure [Right] O2 Sat by Pulse 97 96 100 Oximetry O2 Sat by Pulse Oximetry [ Bilateral] 07/01/21 07/01/21 07/01/21 02:47 02:52 02:57 Temperature Pulse Rate 86 75 83 Respiratory Rate Blood Pressure Blood Pressure [Right] O2 Sat by Pulse 99 98 97 Oximetry O2 Sat by Pulse Oximetry [ Bilateral] 07/01/21 07/01/21 07/01/21 03:02 03:07 03:12 Temperature Pulse Rate 80 81 84 Respiratory Rate Blood Pressure Blood Pressure [Right] O2 Sat by Pulse 97 98 98 Oximetry O2 Sat by Pulse Oximetry [ Bilateral] 07/01/21 07/01/21 07/01/21 03:17 03:22 03:27 Temperature Pulse Rate 74 82 75 Respiratory Rate Blood Pressure Blood Pressure [Right] O2 Sat by Pulse 99 99 99 Oximetry O2 Sat by Pulse Oximetry [ Bilateral] 07/01/21 07/01/21 07/01/21 03:32 03:37 03:42 Temperature Pulse Rate 80 82 76 Respiratory Rate Blood Pressure Blood Pressure [Right] O2 Sat by Pulse 98 99 99 Oximetry O2 Sat by Pulse Oximetry [ Bilateral] 07/01/21 07/01/21 07/01/21 03:47 03:52 03:57 Temperature Pulse Rate 78 92 H 74 Respiratory Rate Blood Pressure Blood Pressure [Right] O2 Sat by Pulse 99 99 98 Oximetry O2 Sat by Pulse Oximetry [ Bilateral] 07/01/21 07/01/21 07/01/21 04:02 04:07 04:12 Temperature Pulse Rate 79 85 81 Respiratory Rate Blood Pressure Blood Pressure [Right] O2 Sat by Pulse 100 99 100 Oximetry O2 Sat by Pulse Oximetry [ Bilateral] 07/01/21 07/01/21 07/01/21 04:17 04:22 04:23 Temperature 98.6 F Pulse Rate 88 76 87 Respiratory 16 Rate Blood Pressure 107/64 Blood Pressure 107/64 [Right] O2 Sat by Pulse 99 100 100 Oximetry O2 Sat by Pulse Oximetry [ Bilateral] 07/01/21 07/01/21 07/01/21 04:27 04:32 04:37 Temperature Pulse Rate 86 78 79 Respiratory Rate Blood Pressure Blood Pressure [Right] O2 Sat by Pulse 100 98 100 Oximetry O2 Sat by Pulse Oximetry [ Bilateral] 07/01/21 07/01/21 07/01/21 04:42 04:47 04:52 Temperature Pulse Rate 79 79 78 Respiratory Rate Blood Pressure Blood Pressure [Right] O2 Sat by Pulse 99 99 99 Oximetry O2 Sat by Pulse Oximetry [ Bilateral] 07/01/21 07/01/21 07/01/21 04:57 05:02 05:07 Temperature Pulse Rate 72 85 85 Respiratory Rate Blood Pressure Blood Pressure [Right] O2 Sat by Pulse 100 99 100 Oximetry O2 Sat by Pulse Oximetry [ Bilateral] 07/01/21 07/01/21 07/01/21 05:12 05:17 05:22 Temperature Pulse Rate 80 77 82 Respiratory Rate Blood Pressure Blood Pressure [Right] O2 Sat by Pulse 100 99 99 Oximetry O2 Sat by Pulse Oximetry [ Bilateral] 07/01/21 07/01/21 07/01/21 05:27 05:32 05:37 Temperature Pulse Rate 82 83 80 Respiratory Rate Blood Pressure Blood Pressure [Right] O2 Sat by Pulse 99 99 98 Oximetry O2 Sat by Pulse Oximetry [ Bilateral] 07/01/21 07/01/21 07/01/21 05:42 05:47 05:52 Temperature Pulse Rate 92 H 78 79 Respiratory Rate Blood Pressure Blood Pressure [Right] O2 Sat by Pulse 100 100 100 Oximetry O2 Sat by Pulse Oximetry [ Bilateral] 07/01/21 07/01/21 07/01/21 05:57 06:02 06:07 Temperature Pulse Rate 80 79 85 Respiratory Rate Blood Pressure Blood Pressure [Right] O2 Sat by Pulse 99 100 99 Oximetry O2 Sat by Pulse Oximetry [ Bilateral] 07/01/21 07/01/21 07/01/21 06:12 06:17 06:22 Temperature Pulse Rate 95 H 106 H 85 Respiratory Rate Blood Pressure Blood Pressure [Right] O2 Sat by Pulse 99 100 99 Oximetry O2 Sat by Pulse Oximetry [ Bilateral] 07/01/21 07/01/21 07/01/21 06:27 06:32 06:37 Temperature Pulse Rate 86 81 82 Respiratory Rate Blood Pressure Blood Pressure [Right] O2 Sat by Pulse 99 99 100 Oximetry O2 Sat by Pulse Oximetry [ Bilateral] 07/01/21 07/01/21 07/01/21 06:42 06:47 06:52 Temperature Pulse Rate 80 81 87 Respiratory Rate Blood Pressure Blood Pressure [Right] O2 Sat by Pulse 99 100 99 Oximetry O2 Sat by Pulse Oximetry [ Bilateral] 07/01/21 06:57 Temperature Pulse Rate 82 Respiratory Rate Blood Pressure Blood Pressure [Right] O2 Sat by Pulse 98 Oximetry O2 Sat by Pulse Oximetry [ Bilateral] - Labs Labs: Abnormal Labs 06/23/21 06/23/21 06/23/21 11:05 11:05 12:40 MCV 78 L MCH 25 L RDW 22.9 H [place] % (Auto) Seg Neutrophils % 76.5 H Sodium 136 L Carbon Dioxide 18 L Creatinine 0.3 L Albumin 3.3 L Membranes Rupture Positive A 06/28/21 07/01/21 13:35 00:35 MCV MCH 25 L 25 L RDW 23.3 H 23.4 H [place] % (Auto) 8.0 H Seg Neutrophils % 72.8 H 70.3 H Sodium Carbon Dioxide Creatinine Albumin Membranes Rupture Laboratory Results - last 24 hr 06/30/21 06/30/21 06/30/21 11:02 14:51 20:26 WBC RBC Hgb Hct MCV MCH MCHC RDW Plt Count Lymph % (Auto) [place] % (Auto) Eos % (Auto) Baso % (Auto) Lymph # (Auto) [place] # (Auto) Eos # (Auto) Baso # (Auto) Seg Neutrophils % Seg Neutrophils # POC Glucose 98 86 104 C-Reactive Protein 07/01/21 07/01/21 00:35 00:35 WBC 7.2 RBC 4.46 Hgb 11.3 Hct 35.0 MCV 79 MCH 25 L MCHC 32 RDW 23.4 H Plt Count 161 Lymph % (Auto) 21.1 [place] % (Auto) 6.7 Eos % (Auto) 1.5 Baso % (Auto) 0.4 Lymph # (Auto) 1.5 [place] # (Auto) 0.5 Eos # (Auto) 0.1 Baso # (Auto) 0.0 Seg Neutrophils % 70.3 H Seg Neutrophils # 5.0 POC Glucose C-Reactive Protein 0.50
[2021-07-01] MEDS: ACETAMINOPHEN 325 MG TAB PO PRN ×2 (08:31→20:10)
[2021-07-01] MEDS: PRENATAL VIT27-FE FUMARATE-FOLIC ACID VIT TAB PO SCH (10:37)
[2021-07-02] MEDS: ACETAMINOPHEN 325 MG TAB PO PRN (08:14)
[2021-07-02] MEDS: PRENATAL VIT27-FE FUMARATE-FOLIC ACID VIT TAB PO SCH (09:27)
--- NOTE | 2021-07-02 13:09 | Progress Note ---
Assessment and Plan - Patient Problems (1) premature rupture of membranes (PPROM) with unknown onset of labor Current Visit: No Status: Acute Plan to address problem: For admission until delivery --s/p steriods --s/p Continue latency abx --APA consulting --For repeat c/s if indication for delivery or at 34 weeks (2) GDM (gestational diabetes mellitus) Current Visit: Yes Status: Acute Plan to address problem: -Diet controlled. Continue to monitor Subjective - Subjective Date of service: 07/02/21 Principal diagnosis: HD#10, IUP at 33.3 wks, PPROM; Interval history: Patient reports that she is feeling well still with mild persistent of leakage of fluid. Denies vaginal bleeding. Active fetus. Understands indication for admission. Objective - Vital Signs Vital Signs: Vital Signs - 12hr 07/02/21 07/02/21 07/02/21 01:10 01:15 01:20 Temperature Pulse Rate 87 86 89 Respiratory Rate Blood Pressure O2 Sat by Pulse 98 99 99 Oximetry O2 Sat by Pulse Oximetry [ Bilateral] 07/02/21 07/02/21 07/02/21 01:25 01:30 01:35 Temperature Pulse Rate 83 96 H 80 Respiratory Rate Blood Pressure O2 Sat by Pulse 99 99 98 Oximetry O2 Sat by Pulse Oximetry [ Bilateral] 07/02/21 07/02/21 07/02/21 01:40 01:45 01:50 Temperature Pulse Rate 80 78 81 Respiratory Rate Blood Pressure O2 Sat by Pulse 98 100 97 Oximetry O2 Sat by Pulse Oximetry [ Bilateral] 07/02/21 07/02/21 07/02/21 01:55 02:00 02:05 Temperature Pulse Rate 81 73 98 H Respiratory Rate Blood Pressure O2 Sat by Pulse 100 99 100 Oximetry O2 Sat by Pulse Oximetry [ Bilateral] 07/02/21 07/02/21 07/02/21 02:10 02:15 02:20 Temperature Pulse Rate 96 H 79 79 Respiratory Rate Blood Pressure O2 Sat by Pulse 98 97 99 Oximetry O2 Sat by Pulse Oximetry [ Bilateral] 07/02/21 07/02/21 07/02/21 02:25 02:30 02:35 Temperature Pulse Rate 70 79 84 Respiratory Rate Blood Pressure O2 Sat by Pulse 100 100 100 Oximetry O2 Sat by Pulse Oximetry [ Bilateral] 07/02/21 07/02/21 07/02/21 02:40 02:45 02:50 Temperature Pulse Rate 88 76 85 Respiratory Rate Blood Pressure O2 Sat by Pulse 100 100 100 Oximetry O2 Sat by Pulse Oximetry [ Bilateral] 07/02/21 07/02/21 07/02/21 02:55 03:00 03:05 Temperature Pulse Rate 77 79 76 Respiratory Rate Blood Pressure O2 Sat by Pulse 100 97 97 Oximetry O2 Sat by Pulse Oximetry [ Bilateral] 07/02/21 07/02/21 07/02/21 03:10 03:15 03:20 Temperature Pulse Rate 82 82 84 Respiratory Rate Blood Pressure O2 Sat by Pulse 97 98 98 Oximetry O2 Sat by Pulse Oximetry [ Bilateral] 07/02/21 07/02/21 07/02/21 03:25 03:30 03:35 Temperature Pulse Rate 81 79 88 Respiratory Rate Blood Pressure O2 Sat by Pulse 98 99 99 Oximetry O2 Sat by Pulse Oximetry [ Bilateral] 07/02/21 07/02/21 07/02/21 03:40 03:45 03:50 Temperature Pulse Rate 84 88 85 Respiratory Rate Blood Pressure O2 Sat by Pulse 97 99 98 Oximetry O2 Sat by Pulse Oximetry [ Bilateral] 07/02/21 07/02/21 07/02/21 03:55 04:00 04:05 Temperature Pulse Rate 80 91 H 82 Respiratory Rate Blood Pressure O2 Sat by Pulse 98 99 98 Oximetry O2 Sat by Pulse Oximetry [ Bilateral] 07/02/21 07/02/21 07/02/21 04:10 04:15 04:20 Temperature Pulse Rate 99 H 92 H 93 H Respiratory Rate Blood Pressure O2 Sat by Pulse 99 97 99 Oximetry O2 Sat by Pulse Oximetry [ Bilateral] 07/02/21 07/02/21 07/02/21 04:25 04:30 04:35 Temperature Pulse Rate 79 92 H 86 Respiratory Rate Blood Pressure O2 Sat by Pulse 98 98 99 Oximetry O2 Sat by Pulse Oximetry [ Bilateral] 07/02/21 07/02/21 07/02/21 04:40 04:45 04:50 Temperature Pulse Rate 82 85 83 Respiratory Rate Blood Pressure O2 Sat by Pulse 99 99 98 Oximetry O2 Sat by Pulse Oximetry [ Bilateral] 07/02/21 07/02/21 07/02/21 04:55 05:00 05:05 Temperature Pulse Rate 81 81 84 Respiratory Rate Blood Pressure O2 Sat by Pulse 99 100 98 Oximetry O2 Sat by Pulse Oximetry [ Bilateral] 07/02/21 07/02/21 07/02/21 05:10 05:15 05:20 Temperature Pulse Rate 82 82 81 Respiratory Rate Blood Pressure O2 Sat by Pulse 99 99 98 Oximetry O2 Sat by Pulse Oximetry [ Bilateral] 07/02/21 07/02/21 07/02/21 05:25 05:30 05:35 Temperature Pulse Rate 82 83 82 Respiratory Rate Blood Pressure O2 Sat by Pulse 98 98 99 Oximetry O2 Sat by Pulse Oximetry [ Bilateral] 07/02/21 07/02/21 07/02/21 05:40 05:45 05:50 Temperature Pulse Rate 81 80 81 Respiratory Rate Blood Pressure O2 Sat by Pulse 98 99 98 Oximetry O2 Sat by Pulse Oximetry [ Bilateral] 07/02/21 07/02/21 07/02/21 05:55 06:00 06:05 Temperature Pulse Rate 77 92 H 85 Respiratory Rate Blood Pressure O2 Sat by Pulse 98 99 99 Oximetry O2 Sat by Pulse Oximetry [ Bilateral] 07/02/21 07/02/21 07/02/21 06:10 06:15 06:20 Temperature Pulse Rate 101 H 83 81 Respiratory Rate Blood Pressure O2 Sat by Pulse 99 98 99 Oximetry O2 Sat by Pulse Oximetry [ Bilateral] 07/02/21 07/02/21 07/02/21 06:25 06:30 06:35 Temperature Pulse Rate 91 H 77 82 Respiratory Rate Blood Pressure O2 Sat by Pulse 98 97 97 Oximetry O2 Sat by Pulse Oximetry [ Bilateral] 07/02/21 07/02/21 07/02/21 06:40 06:45 06:50 Temperature Pulse Rate 83 79 89 Respiratory Rate Blood Pressure O2 Sat by Pulse 97 98 98 Oximetry O2 Sat by Pulse Oximetry [ Bilateral] 07/02/21 07/02/21 07/02/21 06:55 07:00 07:05 Temperature Pulse Rate 91 H 78 79 Respiratory Rate Blood Pressure O2 Sat by Pulse 100 100 99 Oximetry O2 Sat by Pulse Oximetry [ Bilateral] 07/02/21 07/02/21 07/02/21 07:10 07:15 07:20 Temperature Pulse Rate 90 83 103 H Respiratory Rate Blood Pressure O2 Sat by Pulse 99 99 99 Oximetry O2 Sat by Pulse Oximetry [ Bilateral] 07/02/21 07/02/21 07/02/21 07:25 07:30 07:35 Temperature Pulse Rate 79 90 80 Respiratory Rate Blood Pressure O2 Sat by Pulse 97 98 99 Oximetry O2 Sat by Pulse Oximetry [ Bilateral] 07/02/21 07/02/21 07/02/21 07:40 07:45 07:50 Temperature Pulse Rate 81 85 103 H Respiratory Rate Blood Pressure O2 Sat by Pulse 96 100 99 Oximetry O2 Sat by Pulse Oximetry [ Bilateral] 07/02/21 07/02/21 07/02/21 07:55 08:00 08:05 Temperature Pulse Rate 92 H 85 92 H Respiratory Rate Blood Pressure O2 Sat by Pulse 99 96 97 Oximetry O2 Sat by Pulse Oximetry [ Bilateral] 07/02/21 07/02/21 07/02/21 08:10 08:14 08:15 Temperature 97.5 F L Pulse Rate 82 80 Respiratory 16 16 Rate Blood Pressure 99/53 O2 Sat by Pulse 98 98 Oximetry O2 Sat by Pulse Oximetry [ Bilateral] 07/02/21 07/02/21 07/02/21 08:20 08:25 08:30 Temperature Pulse Rate 82 88 84 Respiratory Rate Blood Pressure O2 Sat by Pulse 99 98 97 Oximetry O2 Sat by Pulse Oximetry [ Bilateral] 07/02/21 07/02/21 07/02/21 08:35 08:40 08:45 Temperature Pulse Rate 83 91 H 79 Respiratory Rate Blood Pressure O2 Sat by Pulse 98 99 99 Oximetry O2 Sat by Pulse Oximetry [ Bilateral] 07/02/21 07/02/21 07/02/21 08:47 08:50 08:55 Temperature Pulse Rate 95 H 100 H 96 H Respiratory Rate Blood Pressure O2 Sat by Pulse 92 99 99 Oximetry O2 Sat by Pulse Oximetry [ Bilateral] 07/02/21 07/02/21 07/02/21 09:00 09:05 09:10 Temperature Pulse Rate 96 H 82 87 Respiratory Rate Blood Pressure O2 Sat by Pulse 98 99 99 Oximetry O2 Sat by Pulse Oximetry [ Bilateral] 07/02/21 07/02/21 07/02/21 09:15 09:20 12:13 Temperature Pulse Rate 89 93 H Respiratory Rate Blood Pressure O2 Sat by Pulse 97 96 Oximetry O2 Sat by Pulse 100 Oximetry [ Bilateral] - Exam Abdomen: Present: normal appearance, soft FHR: category 1 Uterine Contraction Monitor Mode: External Uterine Contraction Pattern: Absent - Labs Labs: Abnormal Labs 06/23/21 06/23/21 06/23/21 11:05 11:05 12:40 MCV 78 L MCH 25 L RDW 22.9 H [place] % (Auto) Seg Neutrophils % 76.5 H Sodium 136 L Carbon Dioxide 18 L Creatinine 0.3 L Albumin 3.3 L Membranes Rupture Positive A 06/28/21 07/01/21 13:35 00:35 MCV MCH 25 L 25 L RDW 23.3 H 23.4 H [place] % (Auto) 8.0 H Seg Neutrophils % 72.8 H 70.3 H Sodium Carbon Dioxide Creatinine Albumin Membranes Rupture Laboratory Results - last 24 hr 07/02/21 08:13 POC Glucose 71
[2021-07-03] MEDS: PRENATAL VIT27-FE FUMARATE-FOLIC ACID VIT TAB PO SCH (09:47)
--- NOTE | 2021-07-03 11:39 | Ultrasound Report ---
ULTRASOUND OBSTETRIC LIMITED INDICATION / CLINICAL INFORMATION: BPP/BRIAN/ position. Clinical Gestational Age (GA) in weeks.days: 33 weeks and 4 days TECHNIQUE: Transabdominal. COMPARISON: 06/28/2021, 06/25/2021. FINDINGS: Single live intrauterine in the breech presentation. Cardiac activity is detected at 142 bpm. Amniotic fluid index: 15 cm Biophysical profile assessment: breathing movement: 2 Gross body movement: 2 tone: 2 Qualitative amniotic fluid volume: 2 Total biophysical profile score equals 8 out of 8. IMPRESSION: Single live intrauterine in the breech presentation with estimated gestational age of 33 we eks and 4 days. Normal biophysical profile score of 8 out of 8. BRIAN 15 cm. Signer Name: Jovanny Rosen MD Signed: 07/03/2021 11:34 AM Workstation Name: [id number]
--- NOTE | 2021-07-03 14:00 | Progress Note ---
Assessment and Plan - Patient Problems (1) premature rupture of membranes (PPROM) with unknown onset of labor Current Visit: No Status: Acute Plan to address problem: For admission until delivery --s/p steriods --s/p Continue latency abx --APA consulting --For repeat c/s if indication for delivery or at 34 weeks (2) GDM (gestational diabetes mellitus) Current Visit: Yes Status: Acute Plan to address problem: -Diet controlled. Continue to monitor Subjective - Subjective Date of service: 07/03/21 Principal diagnosis: HD#10, IUP at 33.4 wks, PPROM; Interval history: Patient reports that she is feeling well still with mild persistent of leakage of fluid. Denies vaginal bleeding. Active fetus. Understands indication for admission. Objective - Vital Signs Vital Signs: Vital Signs - 12hr 07/03/21 07/03/21 07/03/21 02:04 02:09 02:14 Temperature Pulse Rate 75 78 73 Respiratory Rate Blood Pressure Blood Pressure [Right] O2 Sat by Pulse 100 96 98 Oximetry O2 Sat by Pulse Oximetry [ Bilateral] 07/03/21 07/03/21 07/03/21 02:19 02:24 02:29 Temperature Pulse Rate 79 83 83 Respiratory Rate Blood Pressure Blood Pressure [Right] O2 Sat by Pulse 97 97 97 Oximetry O2 Sat by Pulse Oximetry [ Bilateral] 07/03/21 07/03/21 07/03/21 02:34 02:39 02:44 Temperature Pulse Rate 81 74 86 Respiratory Rate Blood Pressure Blood Pressure [Right] O2 Sat by Pulse 97 98 98 Oximetry O2 Sat by Pulse Oximetry [ Bilateral] 07/03/21 07/03/21 07/03/21 02:49 02:54 02:59 Temperature Pulse Rate 89 78 81 Respiratory Rate Blood Pressure Blood Pressure [Right] O2 Sat by Pulse 97 98 97 Oximetry O2 Sat by Pulse Oximetry [ Bilateral] 07/03/21 07/03/21 07/03/21 03:04 03:09 03:14 Temperature Pulse Rate 78 83 86 Respiratory Rate Blood Pressure Blood Pressure [Right] O2 Sat by Pulse 97 98 98 Oximetry O2 Sat by Pulse Oximetry [ Bilateral] 07/03/21 07/03/21 07/03/21 03:19 03:24 03:29 Temperature Pulse Rate 81 104 H 80 Respiratory Rate Blood Pressure Blood Pressure [Right] O2 Sat by Pulse 99 100 98 Oximetry O2 Sat by Pulse Oximetry [ Bilateral] 07/03/21 07/03/21 07/03/21 03:34 03:39 03:44 Temperature Pulse Rate 81 75 76 Respiratory Rate Blood Pressure Blood Pressure [Right] O2 Sat by Pulse 98 98 98 Oximetry O2 Sat by Pulse Oximetry [ Bilateral] 07/03/21 07/03/21 07/03/21 03:49 03:54 03:59 Temperature Pulse Rate 86 80 73 Respiratory Rate Blood Pressure Blood Pressure [Right] O2 Sat by Pulse 99 98 97 Oximetry O2 Sat by Pulse Oximetry [ Bilateral] 07/03/21 07/03/21 07/03/21 04:04 04:09 04:14 Temperature Pulse Rate 84 90 86 Respiratory Rate Blood Pressure Blood Pressure [Right] O2 Sat by Pulse 98 100 98 Oximetry O2 Sat by Pulse Oximetry [ Bilateral] 07/03/21 07/03/21 07/03/21 04:19 04:24 04:29 Temperature Pulse Rate 65 96 H 85 Respiratory Rate Blood Pressure Blood Pressure [Right] O2 Sat by Pulse 99 97 97 Oximetry O2 Sat by Pulse Oximetry [ Bilateral] 07/03/21 07/03/21 07/03/21 04:34 04:39 04:44 Temperature Pulse Rate 84 82 81 Respiratory Rate Blood Pressure Blood Pressure [Right] O2 Sat by Pulse 98 100 98 Oximetry O2 Sat by Pulse Oximetry [ Bilateral] 07/03/21 07/03/21 07/03/21 04:49 04:54 04:59 Temperature Pulse Rate 83 84 80 Respiratory Rate Blood Pressure Blood Pressure [Right] O2 Sat by Pulse 99 98 97 Oximetry O2 Sat by Pulse Oximetry [ Bilateral] 07/03/21 07/03/21 07/03/21 05:04 05:09 05:14 Temperature Pulse Rate 96 H 72 73 Respiratory Rate Blood Pressure Blood Pressure [Right] O2 Sat by Pulse 98 99 99 Oximetry O2 Sat by Pulse Oximetry [ Bilateral] 07/03/21 07/03/21 07/03/21 05:19 05:24 05:28 Temperature Pulse Rate 79 81 82 Respiratory Rate Blood Pressure 101/59 Blood Pressure [Right] O2 Sat by Pulse 98 97 Oximetry O2 Sat by Pulse Oximetry [ Bilateral] 07/03/21 07/03/21 07/03/21 05:29 05:30 05:34 Temperature 97.8 F Pulse Rate 75 78 Respiratory 20 Rate Blood Pressure Blood Pressure [Right] O2 Sat by Pulse 100 97 Oximetry O2 Sat by Pulse Oximetry [ Bilateral] 07/03/21 07/03/21 07/03/21 05:39 05:44 05:49 Temperature Pulse Rate 74 78 81 Respiratory Rate Blood Pressure Blood Pressure [Right] O2 Sat by Pulse 98 98 99 Oximetry O2 Sat by Pulse Oximetry [ Bilateral] 07/03/21 07/03/21 07/03/21 05:54 05:59 06:04 Temperature Pulse Rate 78 82 81 Respiratory Rate Blood Pressure Blood Pressure [Right] O2 Sat by Pulse 99 99 99 Oximetry O2 Sat by Pulse Oximetry [ Bilateral] 07/03/21 07/03/21 07/03/21 06:09 06:14 06:19 Temperature Pulse Rate 82 76 85 Respiratory Rate Blood Pressure Blood Pressure [Right] O2 Sat by Pulse 99 99 98 Oximetry O2 Sat by Pulse Oximetry [ Bilateral] 07/03/21 07/03/21 07/03/21 06:24 06:29 06:34 Temperature Pulse Rate 80 83 78 Respiratory Rate Blood Pressure Blood Pressure [Right] O2 Sat by Pulse 98 98 97 Oximetry O2 Sat by Pulse Oximetry [ Bilateral] 07/03/21 07/03/21 07/03/21 06:39 06:44 06:49 Temperature Pulse Rate 81 83 76 Respiratory Rate Blood Pressure Blood Pressure [Right] O2 Sat by Pulse 97 97 97 Oximetry O2 Sat by Pulse Oximetry [ Bilateral] 07/03/21 07/03/21 07/03/21 06:54 06:59 07:04 Temperature Pulse Rate 83 85 85 Respiratory Rate Blood Pressure Blood Pressure [Right] O2 Sat by Pulse 97 98 99 Oximetry O2 Sat by Pulse Oximetry [ Bilateral] 07/03/21 07/03/21 07/03/21 07:09 07:15 07:36 Temperature 98.4 F Pulse Rate 84 91 H 84 Respiratory 16 Rate Blood Pressure Blood Pressure 99/55 [Right] O2 Sat by Pulse 99 99 100 Oximetry O2 Sat by Pulse 98 Oximetry [ Bilateral] 07/03/21 07/03/21 07/03/21 07:41 07:46 07:51 Temperature Pulse Rate 82 83 91 H Respiratory Rate Blood Pressure Blood Pressure [Right] O2 Sat by Pulse 99 98 98 Oximetry O2 Sat by Pulse Oximetry [ Bilateral] 07/03/21 07/03/21 07/03/21 07:56 08:01 08:02 Temperature Pulse Rate 82 83 79 Respiratory Rate Blood Pressure 99/55 Blood Pressure [Right] O2 Sat by Pulse 98 98 Oximetry O2 Sat by Pulse Oximetry [ Bilateral] 07/03/21 07/03/21 07/03/21 08:06 08:11 08:16 Temperature Pulse Rate 83 79 80 Respiratory Rate Blood Pressure Blood Pressure [Right] O2 Sat by Pulse 99 98 99 Oximetry O2 Sat by Pulse Oximetry [ Bilateral] 07/03/21 07/03/21 07/03/21 08:21 08:26 08:31 Temperature Pulse Rate 81 81 98 H Respiratory Rate Blood Pressure Blood Pressure [Right] O2 Sat by Pulse 99 99 100 Oximetry O2 Sat by Pulse Oximetry [ Bilateral] 07/03/21 07/03/21 07/03/21 08:36 08:41 08:46 Temperature Pulse Rate 80 88 80 Respiratory Rate Blood Pressure Blood Pressure [Right] O2 Sat by Pulse 99 99 98 Oximetry O2 Sat by Pulse Oximetry [ Bilateral] 07/03/21 07/03/21 07/03/21 08:51 08:56 09:01 Temperature Pulse Rate 87 83 79 Respiratory Rate Blood Pressure Blood Pressure [Right] O2 Sat by Pulse 99 98 99 Oximetry O2 Sat by Pulse Oximetry [ Bilateral] 07/03/21 07/03/21 07/03/21 09:10 09:15 09:20 Temperature Pulse Rate 79 81 90 Respiratory Rate Blood Pressure Blood Pressure [Right] O2 Sat by Pulse 100 99 100 Oximetry O2 Sat by Pulse Oximetry [ Bilateral] 07/03/21 07/03/21 07/03/21 09:25 09:30 09:35 Temperature Pulse Rate 95 H 78 79 Respiratory Rate Blood Pressure Blood Pressure [Right] O2 Sat by Pulse 100 100 99 Oximetry O2 Sat by Pulse Oximetry [ Bilateral] 07/03/21 07/03/21 07/03/21 09:40 09:45 09:50 Temperature Pulse Rate 75 83 77 Respiratory Rate Blood Pressure Blood Pressure [Right] O2 Sat by Pulse 99 100 98 Oximetry O2 Sat by Pulse Oximetry [ Bilateral] 07/03/21 07/03/21 07/03/21 09:55 10:00 10:05 Temperature Pulse Rate 80 75 81 Respiratory Rate Blood Pressure Blood Pressure [Right] O2 Sat by Pulse 99 99 99 Oximetry O2 Sat by Pulse Oximetry [ Bilateral] 07/03/21 07/03/21 07/03/21 10:10 10:15 10:20 Temperature Pulse Rate 78 77 88 Respiratory Rate Blood Pressure Blood Pressure [Right] O2 Sat by Pulse 98 98 100 Oximetry O2 Sat by Pulse Oximetry [ Bilateral] 07/03/21 07/03/21 07/03/21 10:25 10:30 10:35 Temperature Pulse Rate 79 86 82 Respiratory Rate Blood Pressure Blood Pressure [Right] O2 Sat by Pulse 100 100 99 Oximetry O2 Sat by Pulse Oximetry [ Bilateral] 07/03/21 07/03/21 07/03/21 10:40 10:45 10:50 Temperature Pulse Rate 81 85 82 Respiratory Rate Blood Pressure Blood Pressure [Right] O2 Sat by Pulse 100 99 100 Oximetry O2 Sat by Pulse Oximetry [ Bilateral] 07/03/21 07/03/21 07/03/21 10:55 11:00 11:05 Temperature Pulse Rate 85 95 H 90 Respiratory Rate Blood Pressure Blood Pressure [Right] O2 Sat by Pulse 99 100 100 Oximetry O2 Sat by Pulse Oximetry [ Bilateral] 07/03/21 07/03/21 07/03/21 11:10 11:15 11:20 Temperature Pulse Rate 77 80 82 Respiratory Rate Blood Pressure Blood Pressure [Right] O2 Sat by Pulse 99 98 99 Oximetry O2 Sat by Pulse Oximetry [ Bilateral] 07/03/21 07/03/21 07/03/21 11:25 11:30 11:35 Temperature Pulse Rate 87 82 80 Respiratory Rate Blood Pressure Blood Pressure [Right] O2 Sat by Pulse 99 98 99 Oximetry O2 Sat by Pulse Oximetry [ Bilateral] 07/03/21 07/03/21 07/03/21 11:40 11:45 12:10 Temperature Pulse Rate 85 85 89 Respiratory Rate Blood Pressure Blood Pressure [Right] O2 Sat by Pulse 100 100 99 Oximetry O2 Sat by Pulse Oximetry [ Bilateral] 07/03/21 07/03/21 07/03/21 12:15 12:20 12:25 Temperature Pulse Rate 84 96 H 79 Respiratory Rate Blood Pressure Blood Pressure [Right] O2 Sat by Pulse 100 98 99 Oximetry O2 Sat by Pulse Oximetry [ Bilateral] 07/03/21 07/03/21 07/03/21 12:30 12:35 12:40 Temperature Pulse Rate 89 87 101 H Respiratory Rate Blood Pressure Blood Pressure [Right] O2 Sat by Pulse 99 100 100 Oximetry O2 Sat by Pulse Oximetry [ Bilateral] 07/03/21 07/03/21 07/03/21 12:45 12:50 12:55 Temperature Pulse Rate 95 H 84 91 H Respiratory Rate Blood Pressure Blood Pressure [Right] O2 Sat by Pulse 100 99 99 Oximetry O2 Sat by Pulse Oximetry [ Bilateral] 07/03/21 07/03/21 07/03/21 13:00 13:05 13:10 Temperature Pulse Rate 78 87 82 Respiratory Rate Blood Pressure Blood Pressure [Right] O2 Sat by Pulse 99 100 99 Oximetry O2 Sat by Pulse Oximetry [ Bilateral] 07/03/21 07/03/21 07/03/21 13:15 13:20 13:25 Temperature Pulse Rate 88 87 86 Respiratory Rate Blood Pressure Blood Pressure [Right] O2 Sat by Pulse 100 99 99 Oximetry O2 Sat by Pulse Oximetry [ Bilateral] 07/03/21 07/03/21 07/03/21 13:30 13:35 13:40 Temperature Pulse Rate 85 87 81 Respiratory Rate Blood Pressure Blood Pressure [Right] O2 Sat by Pulse 99 100 99 Oximetry O2 Sat by Pulse Oximetry [ Bilateral] 07/03/21 07/03/21 13:45 13:57 Temperature Pulse Rate 83 84 Respiratory Rate Blood Pressure Blood Pressure [Right] O2 Sat by Pulse 99 100 Oximetry O2 Sat by Pulse Oximetry [ Bilateral] - Exam Abdomen: Present: normal appearance, soft - Labs Labs: Abnormal Labs 06/23/21 06/23/21 06/23/21 11:05 11:05 12:40 MCV 78 L MCH 25 L RDW 22.9 H [place] % (Auto) Seg Neutrophils % 76.5 H Sodium 136 L Carbon Dioxide 18 L Creatinine 0.3 L POC Glucose Albumin 3.3 L Membranes Rupture Positive A 06/28/21 07/01/21 07/02/21 13:35 00:35 20:22 MCV MCH 25 L 25 L RDW 23.3 H 23.4 H [place] % (Auto) 8.0 H Seg Neutrophils % 72.8 H 70.3 H Sodium Carbon Dioxide Creatinine POC Glucose 118 H Albumin Membranes Rupture Laboratory Results - last 24 hr 07/02/21 07/02/21 13:10 20:22 POC Glucose 118 H Blood Type AB POSITIVE Antibody Screen Negative
[2021-07-04] MEDS: PRENATAL VIT27-FE FUMARATE-FOLIC ACID VIT TAB PO SCH (10:00)
--- NOTE | 2021-07-04 14:06 | Progress Note ---
Subjective - Subjective Date of service: 07/04/21 Principal diagnosis: HD#11, IUP at 33.5 wks, PPROM; Interval history: PPROM expectant management stable at bedside FHT documented 130, Category 1 cervix 40/-4(not in labor) SP steroids and abx FBS 118 labs stable, so s/s chorioamnionitis Plan for today: update labs, family visit, up to chair continue biweekly BPP(07/03/21 BPP 04/01, presentation breech, BRIAN 15) delivery for acute /maternal indication or at 34 weeks maternal/ status reassuring at bedside Rox Borrero MD Objective - Vital Signs Vital Signs: Vital Signs - 12hr 07/04/21 07/04/21 07/04/21 02:07 02:12 02:17 Temperature Pulse Rate 78 86 75 Respiratory Rate Blood Pressure Blood Pressure [Right] O2 Sat by Pulse 98 97 97 Oximetry O2 Sat by Pulse Oximetry [ Bilateral] 07/04/21 07/04/21 07/04/21 02:22 02:27 02:32 Temperature Pulse Rate 79 72 99 H Respiratory Rate Blood Pressure Blood Pressure [Right] O2 Sat by Pulse 98 97 97 Oximetry O2 Sat by Pulse Oximetry [ Bilateral] 07/04/21 07/04/21 07/04/21 02:37 02:42 02:47 Temperature Pulse Rate 79 86 72 Respiratory Rate Blood Pressure Blood Pressure [Right] O2 Sat by Pulse 96 98 98 Oximetry O2 Sat by Pulse Oximetry [ Bilateral] 07/04/21 07/04/21 07/04/21 02:52 02:57 03:02 Temperature Pulse Rate 83 78 85 Respiratory Rate Blood Pressure Blood Pressure [Right] O2 Sat by Pulse 97 97 96 Oximetry O2 Sat by Pulse Oximetry [ Bilateral] 07/04/21 07/04/21 07/04/21 03:07 03:12 03:17 Temperature Pulse Rate 82 87 83 Respiratory Rate Blood Pressure Blood Pressure [Right] O2 Sat by Pulse 95 97 97 Oximetry O2 Sat by Pulse Oximetry [ Bilateral] 07/04/21 07/04/21 07/04/21 03:22 03:27 03:32 Temperature Pulse Rate 84 93 H 82 Respiratory Rate Blood Pressure Blood Pressure [Right] O2 Sat by Pulse 96 97 97 Oximetry O2 Sat by Pulse Oximetry [ Bilateral] 07/04/21 07/04/21 07/04/21 03:37 03:42 03:47 Temperature Pulse Rate 89 83 90 Respiratory Rate Blood Pressure Blood Pressure [Right] O2 Sat by Pulse 97 99 99 Oximetry O2 Sat by Pulse Oximetry [ Bilateral] 07/04/21 07/04/21 07/04/21 03:52 03:57 04:02 Temperature Pulse Rate 85 80 80 Respiratory Rate Blood Pressure Blood Pressure [Right] O2 Sat by Pulse 98 98 97 Oximetry O2 Sat by Pulse Oximetry [ Bilateral] 07/04/21 07/04/21 07/04/21 04:07 04:12 04:17 Temperature Pulse Rate 83 79 92 H Respiratory Rate Blood Pressure Blood Pressure [Right] O2 Sat by Pulse 97 97 97 Oximetry O2 Sat by Pulse Oximetry [ Bilateral] 07/04/21 07/04/21 07/04/21 04:22 04:27 04:32 Temperature Pulse Rate 91 H 86 85 Respiratory Rate Blood Pressure Blood Pressure [Right] O2 Sat by Pulse 97 98 97 Oximetry O2 Sat by Pulse Oximetry [ Bilateral] 07/04/21 07/04/21 07/04/21 04:37 04:42 04:47 Temperature Pulse Rate 82 83 81 Respiratory Rate Blood Pressure Blood Pressure [Right] O2 Sat by Pulse 98 98 99 Oximetry O2 Sat by Pulse Oximetry [ Bilateral] 07/04/21 07/04/21 07/04/21 04:52 04:57 05:02 Temperature Pulse Rate 112 H 84 88 Respiratory Rate Blood Pressure Blood Pressure [Right] O2 Sat by Pulse 99 97 98 Oximetry O2 Sat by Pulse Oximetry [ Bilateral] 07/04/21 07/04/21 07/04/21 05:07 05:12 05:17 Temperature Pulse Rate 82 98 H 79 Respiratory Rate Blood Pressure Blood Pressure [Right] O2 Sat by Pulse 98 98 96 Oximetry O2 Sat by Pulse Oximetry [ Bilateral] 07/04/21 07/04/21 07/04/21 05:22 05:27 05:32 Temperature Pulse Rate 78 78 85 Respiratory Rate Blood Pressure Blood Pressure [Right] O2 Sat by Pulse 97 95 97 Oximetry O2 Sat by Pulse Oximetry [ Bilateral] 07/04/21 07/04/21 07/04/21 05:37 05:42 05:47 Temperature Pulse Rate 84 75 82 Respiratory Rate Blood Pressure 84/54 Blood Pressure [Right] O2 Sat by Pulse 96 98 97 Oximetry O2 Sat by Pulse Oximetry [ Bilateral] 07/04/21 07/04/21 07/04/21 05:49 05:52 05:57 Temperature Pulse Rate 83 87 90 Respiratory Rate Blood Pressure 91/56 Blood Pressure [Right] O2 Sat by Pulse 97 99 Oximetry O2 Sat by Pulse Oximetry [ Bilateral] 07/04/21 07/04/21 07/04/21 06:02 06:07 06:12 Temperature Pulse Rate 84 81 84 Respiratory Rate Blood Pressure Blood Pressure [Right] O2 Sat by Pulse 99 96 96 Oximetry O2 Sat by Pulse Oximetry [ Bilateral] 07/04/21 07/04/21 07/04/21 06:17 06:22 06:27 Temperature Pulse Rate 77 87 86 Respiratory Rate Blood Pressure Blood Pressure [Right] O2 Sat by Pulse 98 98 98 Oximetry O2 Sat by Pulse Oximetry [ Bilateral] 07/04/21 07/04/21 07/04/21 06:32 06:37 06:42 Temperature Pulse Rate 81 82 88 Respiratory Rate Blood Pressure Blood Pressure [Right] O2 Sat by Pulse 98 98 97 Oximetry O2 Sat by Pulse Oximetry [ Bilateral] 07/04/21 07/04/21 07/04/21 06:47 06:52 06:57 Temperature Pulse Rate 89 87 80 Respiratory Rate Blood Pressure Blood Pressure [Right] O2 Sat by Pulse 97 97 98 Oximetry O2 Sat by Pulse Oximetry [ Bilateral] 07/04/21 07/04/21 07/04/21 07:02 07:07 07:12 Temperature Pulse Rate 82 80 82 Respiratory Rate Blood Pressure Blood Pressure [Right] O2 Sat by Pulse 97 96 97 Oximetry O2 Sat by Pulse Oximetry [ Bilateral] 07/04/21 07/04/21 07/04/21 07:17 07:18 07:19 Temperature 98.6 F Pulse Rate 76 81 85 Respiratory 19 Rate Blood Pressure 90/54 Blood Pressure 90/54 [Right] O2 Sat by Pulse 97 98 Oximetry O2 Sat by Pulse Oximetry [ Bilateral] 07/04/21 07/04/21 07/04/21 07:21 07:22 07:27 Temperature Pulse Rate 92 H 86 Respiratory Rate Blood Pressure Blood Pressure [Right] O2 Sat by Pulse 97 96 Oximetry O2 Sat by Pulse 100 Oximetry [ Bilateral] 07/04/21 07/04/21 07/04/21 07:32 07:37 07:42 Temperature Pulse Rate 90 79 85 Respiratory Rate Blood Pressure Blood Pressure [Right] O2 Sat by Pulse 97 100 100 Oximetry O2 Sat by Pulse Oximetry [ Bilateral] 07/04/21 07/04/21 07/04/21 07:47 07:52 07:57 Temperature Pulse Rate 89 82 80 Respiratory Rate Blood Pressure Blood Pressure [Right] O2 Sat by Pulse 100 98 96 Oximetry O2 Sat by Pulse Oximetry [ Bilateral] 07/04/21 07/04/21 07/04/21 08:02 08:07 08:12 Temperature Pulse Rate 81 85 104 H Respiratory Rate Blood Pressure Blood Pressure [Right] O2 Sat by Pulse 98 98 99 Oximetry O2 Sat by Pulse Oximetry [ Bilateral] 07/04/21 07/04/21 07/04/21 08:17 08:40 08:45 Temperature Pulse Rate 98 H 96 H 79 Respiratory Rate Blood Pressure Blood Pressure [Right] O2 Sat by Pulse 100 100 99 Oximetry O2 Sat by Pulse Oximetry [ Bilateral] 07/04/21 07/04/21 07/04/21 08:50 08:55 09:00 Temperature Pulse Rate 92 H 86 83 Respiratory Rate Blood Pressure Blood Pressure [Right] O2 Sat by Pulse 98 98 99 Oximetry O2 Sat by Pulse Oximetry [ Bilateral] 07/04/21 07/04/21 07/04/21 09:05 09:10 09:15 Temperature Pulse Rate 88 88 84 Respiratory Rate Blood Pressure Blood Pressure [Right] O2 Sat by Pulse 97 98 96 Oximetry O2 Sat by Pulse Oximetry [ Bilateral] 07/04/21 07/04/21 07/04/21 09:20 09:25 09:30 Temperature Pulse Rate 91 H 86 90 Respiratory Rate Blood Pressure Blood Pressure [Right] O2 Sat by Pulse 97 98 97 Oximetry O2 Sat by Pulse Oximetry [ Bilateral] 07/04/21 07/04/21 07/04/21 09:35 09:40 09:45 Temperature Pulse Rate 93 H 84 52 L Respiratory Rate Blood Pressure Blood Pressure [Right] O2 Sat by Pulse 96 98 86 Oximetry O2 Sat by Pulse Oximetry [ Bilateral] 07/04/21 07/04/21 07/04/21 09:51 10:43 10:48 Temperature Pulse Rate 31 L Respiratory Rate Blood Pressure Blood Pressure [Right] O2 Sat by Pulse 87 85 77 L Oximetry O2 Sat by Pulse Oximetry [ Bilateral] 07/04/21 07/04/21 07/04/21 10:55 10:56 11:01 Temperature Pulse Rate 53 L 94 H Respiratory Rate Blood Pressure Blood Pressure [Right] O2 Sat by Pulse 91 98 97 Oximetry O2 Sat by Pulse Oximetry [ Bilateral] 07/04/21 07/04/21 07/04/21 11:06 11:11 11:16 Temperature Pulse Rate 92 H 90 89 Respiratory Rate Blood Pressure Blood Pressure [Right] O2 Sat by Pulse 97 97 97 Oximetry O2 Sat by Pulse Oximetry [ Bilateral] 07/04/21 07/04/21 07/04/21 11:21 11:26 11:31 Temperature Pulse Rate 80 87 81 Respiratory Rate Blood Pressure Blood Pressure [Right] O2 Sat by Pulse 97 97 98 Oximetry O2 Sat by Pulse Oximetry [ Bilateral] 07/04/21 07/04/21 07/04/21 11:36 11:41 11:46 Temperature Pulse Rate 84 87 84 Respiratory Rate Blood Pressure Blood Pressure [Right] O2 Sat by Pulse 97 98 97 Oximetry O2 Sat by Pulse Oximetry [ Bilateral] 07/04/21 07/04/21 07/04/21 11:51 11:56 12:01 Temperature Pulse Rate 94 H 85 87 Respiratory Rate Blood Pressure Blood Pressure [Right] O2 Sat by Pulse 98 96 99 Oximetry O2 Sat by Pulse Oximetry [ Bilateral] 07/04/21 07/04/21 07/04/21 12:06 12:11 12:16 Temperature Pulse Rate 95 H 94 H 103 H Respiratory Rate Blood Pressure Blood Pressure [Right] O2 Sat by Pulse 99 100 99 Oximetry O2 Sat by Pulse Oximetry [ Bilateral] 07/04/21 07/04/21 07/04/21 12:21 12:26 12:31 Temperature Pulse Rate 92 H 89 87 Respiratory Rate Blood Pressure Blood Pressure [Right] O2 Sat by Pulse 100 100 99 Oximetry O2 Sat by Pulse Oximetry [ Bilateral] 07/04/21 07/04/21 07/04/21 12:36 12:41 12:46 Temperature Pulse Rate 93 H 86 90 Respiratory Rate Blood Pressure Blood Pressure [Right] O2 Sat by Pulse 98 97 98 Oximetry O2 Sat by Pulse Oximetry [ Bilateral] 07/04/21 07/04/21 07/04/21 12:51 12:56 13:01 Temperature Pulse Rate 92 H 82 84 Respiratory Rate Blood Pressure Blood Pressure [Right] O2 Sat by Pulse 98 98 97 Oximetry O2 Sat by Pulse Oximetry [ Bilateral] 07/04/21 07/04/21 07/04/21 13:06 13:11 13:16 Temperature Pulse Rate 86 88 87 Respiratory Rate Blood Pressure Blood Pressure [Right] O2 Sat by Pulse 98 99 98 Oximetry O2 Sat by Pulse Oximetry [ Bilateral] 07/04/21 07/04/21 07/04/21 13:21 13:26 13:31 Temperature Pulse Rate 92 H 94 H 95 H Respiratory Rate Blood Pressure Blood Pressure [Right] O2 Sat by Pulse 97 99 99 Oximetry O2 Sat by Pulse Oximetry [ Bilateral] 07/04/21 07/04/21 07/04/21 13:36 13:41 13:46 Temperature Pulse Rate 96 H 92 H 106 H Respiratory Rate Blood Pressure Blood Pressure [Right] O2 Sat by Pulse 99 100 99 Oximetry O2 Sat by Pulse Oximetry [ Bilateral] 07/04/21 07/04/21 13:58 14:03 Temperature Pulse Rate 95 H 119 H Respiratory Rate Blood Pressure Blood Pressure [Right] O2 Sat by Pulse 100 98 Oximetry O2 Sat by Pulse Oximetry [ Bilateral] - Labs Labs: Abnormal Labs 06/23/21 06/23/21 06/23/21 11:05 11:05 12:40 MCV 78 L MCH 25 L RDW 22.9 H [place] % (Auto) Seg Neutrophils % 76.5 H Sodium 136 L Carbon Dioxide 18 L Creatinine 0.3 L POC Glucose Albumin 3.3 L Membranes Rupture Positive A 06/28/21 07/01/21 07/02/21 13:35 00:35 20:22 MCV MCH 25 L 25 L RDW 23.3 H 23.4 H [place] % (Auto) 8.0 H Seg Neutrophils % 72.8 H 70.3 H Sodium Carbon Dioxide Creatinine POC Glucose 118 H Albumin Membranes Rupture
[2021-07-04 16:28] LABS: Basophils # (Auto) 0.1 K/mm3 (0.0-0.1); Basophils % (Auto) 0.7 % (0.0-1.8); Eosinophils # (Auto) 0.1 K/mm3 (0.0-0.4); Eosinophils % (Auto) 0.8 % (0.0-4.3); Hematocrit 35.9 % (30.3-42.9); Hemoglobin 11.6 gm/dl (10.1-14.3); Lymphocytes # (Auto) 1.5 K/mm3 (1.2-5.4); Lymphocytes % (Auto) 17.8 % (13.4-35.0); Mean Corpuscular HGB Conc 32 % (30-34); Mean Corpuscular Volume 79 fl (79-97); Monocytes # (Auto) 0.6 K/mm3 (0.0-0.8); Platelet Count 173 K/mm3 (140-440); Red Blood Count 4.58 M/mm3 (3.65-5.03)
[2021-07-04 16:29] LABS: Red Cell Distribution Width 23.7 % (13.2-15.2)
--- NOTE | 2021-07-05 08:38 | Progress Note ---
Assessment and Plan - Patient Problems (1) premature rupture of membranes (PPROM) with unknown onset of labor Current Visit: No Status: Acute Plan to address problem: For admission until delivery. Plan for delivery tomorrow at 34 weeks. --s/p steriods --s/p Continue latency abx --APA consulting --For repeat c/s if indication for delivery or at 34 weeks (2) GDM (gestational diabetes mellitus) Current Visit: Yes Status: Acute Plan to address problem: -Diet controlled. Continue to monitor Subjective - Subjective Date of service: 07/05/21 Principal diagnosis: HD#12, IUP at 33.6 wks, PPROM (pos Rom+ with reported LOF); Interval history: Patient reports that she is feeling well. Denies further vaginal bleeding. Active fetus. Understands indication for admission and plan for c/s tomorrow for presumed premature rupture of membranes, now 34w tomorrow. Patient reports: movement normal Objective - Vital Signs Vital Signs: Vital Signs - 12hr 07/04/21 07/04/21 07/04/21 20:39 20:44 20:49 Temperature Pulse Rate 81 80 80 Blood Pressure O2 Sat by Pulse 98 98 97 Oximetry 07/04/21 07/04/21 07/04/21 20:54 20:59 21:04 Temperature Pulse Rate 85 80 83 Blood Pressure O2 Sat by Pulse 97 96 97 Oximetry 07/04/21 07/04/21 07/04/21 21:09 21:14 21:19 Temperature Pulse Rate 80 77 82 Blood Pressure O2 Sat by Pulse 97 98 97 Oximetry 07/04/21 07/04/21 07/04/21 21:24 21:29 21:34 Temperature Pulse Rate 80 88 79 Blood Pressure O2 Sat by Pulse 97 96 100 Oximetry 07/04/21 07/04/21 07/04/21 21:39 21:40 21:43 Temperature 97.3 F L Pulse Rate 83 85 Blood Pressure O2 Sat by Pulse 99 93 Oximetry 07/04/21 07/04/21 07/04/21 21:44 21:49 21:54 Temperature Pulse Rate 82 90 84 Blood Pressure O2 Sat by Pulse 95 96 99 Oximetry 07/04/21 07/04/21 07/04/21 21:59 22:04 22:09 Temperature Pulse Rate 95 H 81 89 Blood Pressure O2 Sat by Pulse 98 99 99 Oximetry 07/04/21 07/04/21 07/04/21 22:14 22:19 22:24 Temperature Pulse Rate 79 78 84 Blood Pressure O2 Sat by Pulse 99 99 99 Oximetry 07/04/21 07/04/21 07/04/21 22:29 22:34 22:39 Temperature Pulse Rate 82 83 80 Blood Pressure O2 Sat by Pulse 100 99 100 Oximetry 07/04/21 07/04/21 07/04/21 22:44 22:49 22:54 Temperature Pulse Rate 81 87 99 H Blood Pressure O2 Sat by Pulse 99 98 98 Oximetry 07/04/21 07/04/21 07/04/21 22:59 23:04 23:09 Temperature Pulse Rate 81 83 70 Blood Pressure O2 Sat by Pulse 99 99 100 Oximetry 07/04/21 07/04/21 07/04/21 23:14 23:19 23:24 Temperature Pulse Rate 80 85 85 Blood Pressure O2 Sat by Pulse 100 100 100 Oximetry 07/04/21 07/04/21 07/04/21 23:29 23:34 23:39 Temperature Pulse Rate 81 84 83 Blood Pressure O2 Sat by Pulse 100 99 99 Oximetry 07/04/21 07/04/21 07/04/21 23:44 23:49 23:54 Temperature Pulse Rate 81 88 79 Blood Pressure O2 Sat by Pulse 99 98 98 Oximetry 07/04/21 07/05/21 07/05/21 23:59 00:04 00:09 Temperature Pulse Rate 81 90 85 Blood Pressure O2 Sat by Pulse 99 100 99 Oximetry 07/05/21 07/05/21 07/05/21 00:14 00:19 00:24 Temperature Pulse Rate 80 86 83 Blood Pressure O2 Sat by Pulse 100 98 99 Oximetry 07/05/21 07/05/21 07/05/21 00:29 00:34 00:39 Temperature Pulse Rate 81 86 85 Blood Pressure O2 Sat by Pulse 99 100 100 Oximetry 07/05/21 07/05/21 07/05/21 00:44 00:49 00:54 Temperature Pulse Rate 80 82 79 Blood Pressure O2 Sat by Pulse 98 99 98 Oximetry 07/05/21 07/05/21 07/05/21 00:59 01:04 01:09 Temperature Pulse Rate 84 86 86 Blood Pressure O2 Sat by Pulse 98 98 98 Oximetry 07/05/21 07/05/21 07/05/21 01:14 01:19 01:24 Temperature Pulse Rate 84 83 85 Blood Pressure O2 Sat by Pulse 98 99 98 Oximetry 07/05/21 07/05/21 07/05/21 01:29 01:34 01:39 Temperature Pulse Rate 81 80 85 Blood Pressure O2 Sat by Pulse 98 98 99 Oximetry 07/05/21 07/05/21 07/05/21 01:44 01:49 01:54 Temperature Pulse Rate 83 87 83 Blood Pressure O2 Sat by Pulse 99 99 99 Oximetry 07/05/21 07/05/21 07/05/21 01:59 02:04 02:09 Temperature Pulse Rate 81 85 88 Blood Pressure O2 Sat by Pulse 99 98 99 Oximetry 07/05/21 07/05/21 07/05/21 02:14 02:19 02:24 Temperature Pulse Rate 91 H 82 80 Blood Pressure O2 Sat by Pulse 100 99 99 Oximetry 07/05/21 07/05/21 07/05/21 02:29 02:34 02:39 Temperature Pulse Rate 87 83 83 Blood Pressure O2 Sat by Pulse 99 100 99 Oximetry 07/05/21 07/05/21 07/05/21 02:44 02:49 02:54 Temperature Pulse Rate 87 88 91 H Blood Pressure O2 Sat by Pulse 99 97 98 Oximetry 07/05/21 07/05/21 07/05/21 02:59 03:04 03:09 Temperature Pulse Rate 87 89 78 Blood Pressure O2 Sat by Pulse 98 97 98 Oximetry 07/05/21 07/05/21 07/05/21 03:14 03:19 03:24 Temperature Pulse Rate 83 92 H 90 Blood Pressure O2 Sat by Pulse 98 98 97 Oximetry 07/05/21 07/05/21 07/05/21 03:29 03:34 03:39 Temperature Pulse Rate 83 77 79 Blood Pressure O2 Sat by Pulse 97 98 98 Oximetry 07/05/21 07/05/21 07/05/21 03:44 03:49 03:54 Temperature Pulse Rate 85 87 82 Blood Pressure O2 Sat by Pulse 99 99 99 Oximetry 07/05/21 07/05/21 07/05/21 03:59 04:04 04:09 Temperature Pulse Rate 84 82 90 Blood Pressure O2 Sat by Pulse 98 99 99 Oximetry 1107/05/21 07/05/21 04:14 04:19 04:24 Temperature Pulse Rate 81 84 82 Blood Pressure O2 Sat by Pulse 99 99 98 Oximetry 07/05/21 07/05/21 07/05/21 04:29 04:34 04:39 Temperature Pulse Rate 84 85 84 Blood Pressure O2 Sat by Pulse 99 99 100 Oximetry 07/05/21 07/05/21 07/05/21 04:44 04:49 04:54 Temperature Pulse Rate 91 H 84 83 Blood Pressure O2 Sat by Pulse 98 99 99 Oximetry 07/05/21 07/05/21 07/05/21 04:59 05:04 05:09 Temperature Pulse Rate 91 H 77 83 Blood Pressure O2 Sat by Pulse 99 99 99 Oximetry 07/05/21 07/05/21 07/05/21 05:14 05:19 05:24 Temperature Pulse Rate 82 87 82 Blood Pressure O2 Sat by Pulse 98 98 98 Oximetry 07/05/21 07/05/21 07/05/21 05:29 05:34 05:38 Temperature Pulse Rate 88 86 67 Blood Pressure O2 Sat by Pulse 98 99 87 Oximetry 07/05/21 07/05/21 07/05/21 05:39 05:44 05:49 Temperature Pulse Rate 90 93 H 91 H Blood Pressure O2 Sat by Pulse 100 98 100 Oximetry 07/05/21 07/05/21 07/05/21 06:07 06:13 07:04 Temperature Pulse Rate 88 94 H 85 Blood Pressure 100/58 O2 Sat by Pulse 100 98 Oximetry - Exam FHR: category 1 Uterine Contraction Monitor Mode: External Cervical Dilatation: 1 Uterine Contraction Pattern: Irregular - Labs Labs: Abnormal Labs 06/23/21 06/23/21 06/23/21 11:05 11:05 12:40 MCV 78 L MCH 25 L RDW 22.9 H [place] % (Auto) Seg Neutrophils % 76.5 H Sodium 136 L Carbon Dioxide 18 L Creatinine 0.3 L POC Glucose Albumin 3.3 L Membranes Rupture Positive A 06/28/21 07/01/21 07/02/21 13:35 00:35 20:22 MCV MCH 25 L 25 L RDW 23.3 H 23.4 H [place] % (Auto) 8.0 H Seg Neutrophils % 72.8 H 70.3 H Sodium Carbon Dioxide Creatinine POC Glucose 118 H Albumin Membranes Rupture 07/04/21 16:08 MCV MCH 25 L RDW 23.7 H [place] % (Auto) Seg Neutrophils % 73.7 H Sodium Carbon Dioxide Creatinine POC Glucose Albumin Membranes Rupture Laboratory Results - last 24 hr 07/04/21 07/04/21 16:08 16:08 WBC 8.4 RBC 4.58 Hgb 11.6 Hct 35.9 MCV 79 MCH 25 L MCHC 32 RDW 23.7 H Plt Count 173 Lymph % (Auto) 17.8 [place] % (Auto) 7.0 Eos % (Auto) 0.8 Baso % (Auto) 0.7 Lymph # (Auto) 1.5 Cameron # (Auto) 0.6 Eos # (Auto) 0.1 Baso # (Auto) 0.1 Seg Neutrophils % 73.7 H Seg Neutrophils # 6.2 C-Reactive Protein 0.60
[2021-07-05] MEDS: PRENATAL VIT27-FE FUMARATE-FOLIC ACID VIT TAB PO SCH (09:54)
[2021-07-05 16:52] LABS: Basophils % (Auto) 0.5 % (0.0-1.8); Eosinophils # (Auto) 0.1 K/mm3 (0.0-0.4); Eosinophils % (Auto) 0.9 % (0.0-4.3); Hematocrit 36.6 % (30.3-42.9); Hemoglobin 11.7 gm/dl (10.1-14.3); Lymphocytes # (Auto) 1.6 K/mm3 (1.2-5.4); Lymphocytes % (Auto) 19.5 % (13.4-35.0); Mean Corpuscular HGB Conc 32 % (30-34); Mean Corpuscular Volume 78 fl (79-97); Monocytes # (Auto) 0.5 K/mm3 (0.0-0.8); Monocytes % (Auto) 6.3 % (0.0-7.3); Platelet Count 172 K/mm3 (140-440); Red Blood Count 4.68 M/mm3 (3.65-5.03)
[2021-07-05 17:11] LABS: Red Cell Distribution Width 23.5 % (13.2-15.2)
[2021-07-06] MEDS ORDERED: ceFAZolin/Water 2 GM/20 ML 2 GM/20 ML SYRINGE IV NR (05:00)
[2021-07-06] MEDS ORDERED: METOCLOPRAMIDE 10 MG/2 ML INJ IV NR (05:00)
[2021-07-06] MEDS ORDERED: LACTATED RINGERS 1,000 ML IV SCH (05:00)
[2021-07-06] MEDS ORDERED: OXYTOCIN DRIP 30 UNITS/500 ML BAG IV SCH ×2 (05:00→13:00)
[2021-07-06] MEDS ORDERED: FAMOTIDINE 20 MG/2 ML INJ IV NR (05:00)
[2021-07-06] MEDS ORDERED: BICITRA ORAL LIQD 30ML PO NR (05:00)
[2021-07-06] MEDS ORDERED: HYDROmorphone 1 MG/1 ML INJ IV PRN ×2 (07:09)
[2021-07-06] MEDS ORDERED: ONDANSETRON 4 MG/2 ML INJ IV PRN ×2 (07:09→12:20)
[2021-07-06] MEDS ORDERED: NALOXONE 0.4 MG/1 ML INJ IV PRN ×2 (07:09→12:20)
--- NOTE | 2021-07-06 07:19 | Anesthesia Day of Surgery ---
Anesthesia Day of Surgery - Day of Surgery Patient Examined: Yes Patient H&P Reviewed: Yes Patient is NPO: Yes Beta Blockers: No Cardiac Clearance: No Pulmonary Clearance: No Bipin's Test: Negative
[2021-07-06] MEDS ORDERED: ONDANSETRON 4 MG/2 ML INJ ONE ×2 (07:54)
[2021-07-06] MEDS ORDERED: PHENYLEPHRINE/NS 1,000 MCG/10 ML SYRINGE (OR USE) IV ONE ×2 (08:08→11:12)
[2021-07-06] MEDS ORDERED: LACTATED RINGERS 1,000 ML ONE (08:43)
[2021-07-06] MEDS ORDERED: ACETAMINOPHEN 325 MG TAB PO PRN ×2 (09:43→12:20)
[2021-07-06] MEDS ORDERED: NalbUPHINE 10 MG/1 ML INJ IV PRN (09:43)
[2021-07-06] MEDS ORDERED: fentaNYL 100 MCG/2 ML INJ IV PRN (09:43)
[2021-07-06] MEDS ORDERED: SODIUM CHLORIDE 0.9% IRR 1,500 ML BOTTLE IR ONE (10:50)
[2021-07-06] MEDS ORDERED: WATER FOR IRRIG STERILE 1,500 ML BOTTLE IR ONE (10:51)
--- NOTE | 2021-07-06 11:02 | Anesthesia Consultation ---
Anesthesia Consult and Med Hx Date of service: 07/06/21 - Airway Anesthetic Teeth Evaluation: Poor ROM Head & Neck: Adequate Mental/Hyoid Distance: Adequate Mallampati Class: Class II Intubation Access Assessment: Good - Pulmonary Exam CTA: Yes - Cardiac Exam Cardiac Exam: RRR - Pre-Operative Health Status ASA Pre-Surgery Classification: ASA2 Proposed Anesthetic Plan: Spinal - Pulmonary Hx Smoking: No Hx Asthma: No Hx Respiratory Symptoms: No SOB: No COPD: No Home Oxygen Therapy: No Hx Pneumonia: No Hx Sleep Apnea: No - Cardiovascular System Hx Hypertension: No Hx Coronary Artery Disease: No Hx Heart Attack/AMI: No Hx Angina: No Hx Percutaneous Transluminal Coronary Angioplasty (PTCA): No Hx Cardia Arrhythmia: No Hx Pacemaker: No Hx Internal Defibrillator: No Hx Valvular Heart Disease: No Hx Heart Murmur: No Hx Peripheral Vascular Disease: No - Central Nervous System Hx Neuromuscular Disorder: No Hx Seizures: No CVA: No Hx Back Pain: Yes Hx Psychiatric Problems: No - Gastrointestinal Hx Ulcer: No Hx Gastroesophageal Reflux Disease: Yes - Endocrine Hx Renal Disease: No Hx End Stage Renal Disease: No Hx Cirrhosis: No Hx Liver Disease: No Hx Insulin Dependent Diabetes: No Hx Non-Insulin Dependent Diabetes: No Hx Thyroid Disease: No Hx Hypothyroidism: No Hx Hyperthyroidism: No - Hematic Hx Anemia: No Hx Sickle Cell Disease: No - Other Systems Hx Alcohol Use: No Hx Substance Use: No Hx Cancer: No Hx Obesity: No
--- NOTE | 2021-07-06 11:03 | Progress Note ---
Spinal Anesthesia Block - Spinal Anesthesia Block Start Time: 08:00 Stop Time: 08:20 Performed by:: MARCELA CAMARGO Procedure: Patient IDed, H&P reviewed, all questions and concerns were answered, and consent was signed. Timeout was performed at bedside. Patient in sitting position. Sterile prep and drape was performed. [3] ml of 1% lidocaine skin wheal at L[3]- L [4]. Needle introducer advanced. 25 gauge spinal needle advanced. Clear, free flowing CSF. negative blood, negative paresthesia. Spinal dose given. All needles removed. Patient tolerated procedure.
[2021-07-06] MEDS ORDERED: BUPIVACAINE/PF (0.25%) 2.5 MG/ML 30 ML VIAL INFILTRATI ONE (11:46)
[2021-07-06] MEDS ORDERED: dexAMETHasone 20 MG/5 ML VIAL ONE (11:46)
[2021-07-06] MEDS ORDERED: LIDOCAINE 2%/EPINEPHRINE 1:200,000 VIAL (20 ML) INFILTRATI ONE (11:51)
[2021-07-06] MEDS ORDERED: LANOLIN/ZINC/DIMETHICONE (LANSINOH) 7 GM TP PRN (12:20)
[2021-07-06] MEDS ORDERED: MAGNESIUM HYDROXIDE (MOM) ORAL LIQD UDC PO PRN (12:20)
[2021-07-06] MEDS ORDERED: HYDROCORTISONE 25 MG RECTAL SUPP PR PRN (12:20)
[2021-07-06] MEDS ORDERED: WITCH HAZEL/ GLYCERIN PAD TP PRN (12:20)
[2021-07-06] MEDS ORDERED: PROMETHAZINE 25 MG RECT SUPP PR PRN (12:20)
[2021-07-06] MEDS ORDERED: SIMETHICONE 80 MG CHEW TAB PO PRN (12:20)
[2021-07-06] MEDS ORDERED: SENNOSIDES 8.6 MG TAB PO PRN (12:20)
--- NOTE | 2021-07-06 12:29 | Procedure Note ---
OB Delivery Note - Delivery Date of Delivery: 07/06/21 Surgeon: ALINE COBIAN JR Estimated blood loss: other (669 QBL) - Section Preop diagnosis: repeat , other (PPROM at 34 weeks) Postop diagnosis: same section procedure: section, repeat low transverse Disposition: PACU Complications: none Narrative: Indication: 36-year-old at 34 weeks previously admitted for premature rupture membranes at 32 weeks status post steroids, latency antibiotics, now 34 weeks complicated by prior x2 and gestational diabetes, diet- controlled presenting for repeat . Findings: Normal uterus, tubes and ovaries. Clear fluid. No nuchal cord. Delivery of female infant at 1135 Weight 1998g Height 17 in APGARS 7/9 EBL 669 QBL IVF 2500cc UOP 300cc Procedure: Patient was taken to the operating room prepped and draped in the usual sterile fashion. Pfannenstiel skin incision was made and carried down to the underlying fascia. Fascia was incised and the incision was distended bilaterally. Rectus fascia was dissected off the rectus muscle superiorly and inferiorly. Peritoneum was identified and entered. Peritoneal incision extended superiorly and inferiorly. The bladder was visualized. The bladder blade was placed. Uterine hysterotomy incision was made and extended bilaterally.The baby was delivered in the breech fashion starting with the right leg followed by the left, then the trunk, then the left arm then the right arm, followed by head. Baby was bulb suction at delivery. The cord was cut and clamped and handed off to the team. The placenta was delivered spontaneously. The uterus was exteriorized and cleared of all clots and debris. Uterine incision was closed with a 0 Vicryl in a running locked fashion. Good hemostasis was noted after 2-0 sutures applied to the uterine incision. Surgicel powder was applied to the uterine incisional base to provide hemostasis. The urine was noted to be clear. Uterus, tubes, and ovaries were returned to the abdominal cavity. Bilateral gutters were cleared and the abdomen and pelvis were irrigated. Good hemostasis noted. The rectus muscle was reapproximated with 2-0 Vicryl. Attention was directed towards the rectus fascia which was reapproximated with 0 PDS in a running fashion. The subcutaneous tissue was irrigated and reapproximated with 2-0 Vicryl in a running fashion. Skin was closed with a 4-0 Vicryl in a subcuticular fashion. The procedure was completed and the patient tolerated the procedure well. All instruments and lap counts were correct x2. - Infant A at 1 minute: 7 at 5 minutes: 9 Gender: Female
--- NOTE | 2021-07-06 12:59 | Progress Note ---
Regional Anesthesia Block - Regional Anesthesia Block Start Time: 10:45 Stop Time: 10:55 Performed By:: Delia Sheffield Procedure: CSE placed without difficulty. 120 mg Lidocaine + Epi given for .
[2021-07-06] MEDS: KETOROLAC 30 MG/1 ML INJ IV SCH ×2 (15:36→22:17)
[2021-07-06] MEDS: MORPHINE 4 MG/1 ML INJ IV PRN (18:06)
[2021-07-06] MEDS: LACTATED RINGERS 1,000 ML IV SCH (22:17)
[2021-07-07] MEDS: MORPHINE 4 MG/1 ML INJ IV PRN ×2 (00:15→16:01)
[2021-07-07 01:02] LABS: Hematocrit 34.4 % (30.3-42.9); Hemoglobin 11.1 gm/dl (10.1-14.3)
[2021-07-07] MEDS: KETOROLAC 30 MG/1 ML INJ IV SCH ×2 (04:42→19:13)
--- NOTE | 2021-07-07 08:55 | Progress Note ---
Assessment and Plan - Patient Problems (1) premature rupture of membranes (PPROM) with unknown onset of labor Current Visit: No Status: Acute Plan to address problem: Doing well now postop day 1 status post repeat for premature prelabor rupture membranes. --Meeting postoperative goals. --Anticipate discharge in 24 to 48 hours. (2) GDM (gestational diabetes mellitus) Current Visit: Yes Status: Acute Plan to address problem: -Diet controlled. Continue to monitor Subjective - Subjective Date of service: 07/07/21 Principal diagnosis: POD1 s/p rLTCS at 34 weeks for PPROM Interval history: Patient reports that she is overall feeling well. Baby doing well in the NICU. Pain overall well controlled. Bleeding well controlled. Has not eaten yet. Urinating spontaneously. Patient reports: appetite normal, voiding normally, pain well controlled, flatus, ambulating normally : doing well, in NICU Objective - Vital Signs Latest vital signs: Vital Signs Temp Pulse Resp BP BP Pulse Ox Pulse Ox 07/07/21 04:36 98.4 F 72 20 95/54 97 07/07/21 00:08 98.2 F 67 20 98/60 96 07/06/21 20:15 99 07/06/21 16:50 98 07/06/21 15:47 97.6 F 76 16 102/63 97 07/06/21 14:42 98.7 F 69 20 110/71 99 98 07/06/21 13:10 67 18 99/63 100 07/06/21 13:05 70 21 102/65 100 07/06/21 13:00 97.8 F 75 20 105/60 100 07/06/21 12:55 9738 F H 7 L 16 100/65 100 Intake and Output 07/06/21 07/07/21 07/07/21 23:59 07:59 15:59 Intake Total 120 220 Output Total 1650 600 Balance -1530 -380 Intake: Oral 120 220 Output: Urine 1650 600 Indwelling Catheter 1650 300 Void 300 Other: Total, Intake Amount 120 100 Total, Output Amount 1300 300 # Voids Void 2 - Exam Abdomen: Present: normal appearance, soft, normal bowel sounds Uterus: Present: firm Extremities: Present: normal Incision: Present: dressed
[2021-07-07] MEDS: IBUPROFEN 800 MG TAB PO PRN (11:26)
[2021-07-07] MEDS: PRENATAL VIT27-FE FUMARATE-FOLIC ACID VIT TAB PO SCH (11:27)
[2021-07-07] MEDS: oxyCODONE /ACETAMINOPHEN 5-325MG TAB PO PRN ×2 (12:25→22:46)
[2021-07-08] MEDS: oxyCODONE /ACETAMINOPHEN 5-325MG TAB PO PRN ×2 (04:46→20:28)
[2021-07-08] MEDS: IBUPROFEN 800 MG TAB PO PRN (08:10)
--- NOTE | 2021-07-08 10:36 | Progress Note ---
Subjective - Subjective Date of service: 07/08/21 Principal diagnosis: /postop day 2 S/P repeat LTCS Patient reports: movement normal Objective - Vital Signs Vital Signs: Vital Signs - 12hr 07/08/21 07/08/21 07/08/21 00:09 07:55 08:12 Temperature 98.4 F 97.9 F Pulse Rate 70 66 Respiratory 18 16 Rate Blood Pressure 95/62 98/69 O2 Sat by Pulse 95 99 Oximetry O2 Sat by Pulse 98 Oximetry [ Bilateral] - Labs Labs: Abnormal Labs 06/23/21 06/23/21 06/23/21 11:05 11:05 12:40 MCV 78 L MCH 25 L RDW 22.9 H [place] % (Auto) Seg Neutrophils % 76.5 H Sodium 136 L Carbon Dioxide 18 L Creatinine 0.3 L POC Glucose Albumin 3.3 L Membranes Rupture Positive A 06/28/21 07/01/21 07/02/21 13:35 00:35 20:22 MCV MCH 25 L 25 L RDW 23.3 H 23.4 H [place] % (Auto) 8.0 H Seg Neutrophils % 72.8 H 70.3 H Sodium Carbon Dioxide Creatinine POC Glucose 118 H Albumin Membranes Rupture 07/04/21 07/05/21 16:08 16:23 MCV 78 L MCH 25 L 25 L RDW 23.7 H 23.5 H [place] % (Auto) Seg Neutrophils % 73.7 H 72.8 H Sodium Carbon Dioxide Creatinine POC Glucose Albumin Membranes Rupture
--- NOTE | 2021-07-08 10:39 | Progress Note ---
Assessment and Plan A: /postop day 2 S/P repeat LTCS. P: Encouraged ambulation. Anticipate discharge home tomorrow if patient continues to do well. Subjective - Subjective Date of service: 07/08/21 Principal diagnosis: /postop day 2 S/P repeat LTCS Interval history: Doing well. Bottlefeeding. Patient reports: appetite normal, voiding normally, pain well controlled, flatus, ambulating normally, no dizzy ambulation, no nauseated : bottle feeding Objective - Vital Signs Latest vital signs: Vital Signs Temp Pulse Resp BP BP Pulse Ox Pulse Ox 07/08/21 08:12 98 07/08/21 07:55 97.9 F 66 16 98/69 99 07/08/21 00:09 98.4 F 70 18 95/62 95 07/07/21 20:15 99 07/07/21 15:50 97.9 F 66 18 106/71 96 07/07/21 12:17 98.0 F 78 18 102/68 98 Intake and Output 07/07/21 07/08/21 07/08/21 23:59 07:59 15:59 Intake Total 120 360 240 Balance 120 360 240 Intake: Oral 120 360 240 Other: Total, Intake Amount 120 240 240 # Voids Void 1 1 1 - Exam Cardiovascular: Present: Regular rate Lungs: Present: Clear to auscultation Abdomen: Present: normal appearance, soft, normal bowel sounds. Absent: distention, tenderness, guarding, rigidity Uterus: Present: normal, firm, fundal height below umbilicus. Absent: bogginess, tenderness Extremities: Present: normal. Absent: tenderness, edema Incision: Present: dry, intact, other (steri strips with small amount of dried blood; no fresh blood)
[2021-07-08] MEDS: PRENATAL VIT27-FE FUMARATE-FOLIC ACID VIT TAB PO SCH (11:06)
[2021-07-09] MEDS: oxyCODONE /ACETAMINOPHEN 5-325MG TAB PO PRN (06:39)
--- NOTE | 2021-07-09 07:16 | Progress Note ---
Assessment and Plan A: /postop day 3 S/P repeat low transverse section. P: Discharge patient home today. Discussed with patient /postop discharge instructions and warning signs. Advised patient to continue taking her vitamin daily at home. Advised patient re: care of incision and activity restrictions. Advised patient to avoid intercourse, lifting, housework. Advised patient to follow up at [facility] in 1 week. Patient voiced understanding of instructions. Subjective - Subjective Date of service: 07/09/21 Principal diagnosis: /postop day 3 S/P repeat LTCS Interval history: Doing well. Bottlefeeding. Desires discharge home today. Patient reports: appetite normal, voiding normally, pain well controlled, flatus, ambulating normally, no dizzy ambulation, no nauseated Objective - Vital Signs Latest vital signs: Vital Signs Temp Pulse Resp BP BP Pulse Ox Pulse Ox 07/09/21 06:39 18 07/09/21 01:30 98.2 F 76 18 105/73 98 07/08/21 21:28 18 07/08/21 20:28 20 100 07/08/21 18:33 98 07/08/21 16:34 97.9 F 67 20 110/69 97 07/08/21 16:18 98 07/08/21 14:21 98 07/08/21 12:23 98 07/08/21 10:19 98 07/08/21 08:12 98 07/08/21 07:55 97.9 F 66 16 98/69 99 Intake and Output 07/08/21 07/08/21 07/09/21 15:59 23:59 07:59 Intake Total 600 120 240 Balance 600 120 240 Intake: Oral 600 240 Intake, Free Water 120 Other: Total, Intake Amount 240 120 # Voids Void 1 1 1 - Exam Cardiovascular: Present: Regular rate Lungs: Present: Clear to auscultation Abdomen: Present: normal appearance, soft, normal bowel sounds. Absent: distention, tenderness, guarding, rigidity Uterus: Present: normal, firm, fundal height below umbilicus. Absent: bogginess, tenderness Extremities: Present: normal. Absent: tenderness, edema Incision: Present: dry, intact
--- NOTE | 2021-07-09 07:19 | Discharge Summary ---
Providers - Providers Date of Admission: 06/23/21 14:38 Date of discharge: 07/09/21 Attending physician: FRANSISCO HUTCHISON Primary care physician: FRANSISCO HUTCHISON Hospitalization Reason for admission: rupture of membranes Delivery: Procedure: repeat low transverse Incision: normal, dry, intact complications: none Discharge diagnosis: delivery [place] baby: female Pertinent studies: Labs Hospital course: Hospital course significant for PPROM and delivery by repeat LTCS. Condition at discharge: Good Disposition: 01 HOME / SELF CARE / HOMELESS - Discharge Diagnoses (1) delivery Status: Acute Plan - Discharge Medications Prescriptions: Ibuprofen [Motrin 800 MG tab] 800 mg PO Q6H PRN #30 tablet PRN Reason: Pain, Mild (1-3) oxyCODONE /ACETAMINOPHEN [Percocet 5/325 mg] 1 tab PO Q6H PRN #30 tablet PRN Reason: Pain, Moderate (4-6) - Provider Discharge Summary Activity: routine, no sex for 6 weeks, no heavy lifting 4 weeks, no strenuous exercise Diet: routine Instructions: routine Additional instructions: Continue to take your vitamins at home. Follow up at [facility] in 1 week. Call your doctor immediately for: * Fever > 100.5 * Heavy vaginal bleeding ( >1 pad per hour) * Severe persistent headache * Shortness of breath * Reddened, hot, painful area to leg or breast * Drainage or odor from incision. * Keep incision clean and dry at all times and follow doctor's instructions regarding bathing/showering - Follow up plan Follow up: ALINE COBIAN JR, MD [Staff Physician] - 7 Days Forms: [facility] Discharge Summary, Discharge Signature Page
[2021-07-09 09:01] VITALS: BP 114/77
[2021-07-09] MEDS: PRENATAL VIT27-FE FUMARATE-FOLIC ACID VIT TAB PO SCH (11:47)
== END 2021-07-09 17:00 | disposition home or self-care (01) | DRG 786 ==
LOC: TRG 09:45 → APU 09:47 → TRG 14:24 → APU 14:38 → OBSVTOIN 14:38 → LD 15:48 → OB 07-06 15:16 → LD 07-06 15:17 → OB 07-06 15:19
PROVIDERS: ADMIT Obstetrics & Gynecology; ATTEND Obstetrics & Gynecology
PROC: 10D00Z1 Extraction of Products of Conception, Low, Open Approach (ICD-10-PCS; principal; 2021-07-06)
DX: O42.013 Preterm premature rupture of membranes, onset of labor within 24 hours of rupture, third trimester (principal); O60.14X0 Preterm labor third trimester with preterm delivery third trimester, not applicable or unspecified; O23.43 Unspecified infection of urinary tract in pregnancy, third trimester; N39.0 Urinary tract infection, site not specified; Z3A.32 32 weeks gestation of pregnancy; Z20.822 Contact with and (suspected) exposure to COVID-19; Z37.0 Single live birth; O24.429 Gestational diabetes mellitus in childbirth, unspecified control; O34.211 Maternal care for low transverse scar from previous cesarean delivery
CPT/HCPCS: 36415; 59025; 76815; 76816; 76819; 80053; 81001; 82731; 82947; 82951; 82962; 84112; 85014; 85018; 85025; 86140; 86592; 86762; 86850; 86900; 86901; 87086; 87116; 88307; 96360; 99211; G0378; J3490; J7121; G0463; J0290; J0456; J0702; J1100; J1885; J2270; J2370; J2405; J2765; J7120; U0003